=== PATIENT | female | born 1985 | race African-American/Black ===

== ENCOUNTER → 2016-07-21 | Outpatient (CLI) | payer MEDICARE, MEDICAID ==
[2016-07-21 18:24] LABS: ADD HIVPANEL? NO; HIV (1 AND 2) ANTIBODY NEGATIVE (NEGATIVE)
== END ==
LOC: OD 16:43
PROVIDERS: ATTEND Obstetrics & Gynecology
DX: Z34.83 Encounter for supervision of other normal pregnancy, third trimester (principal); Z11.59 Encounter for screening for other viral diseases; Z11.3 Encounter for screening for infections with a predominantly sexual mode of transmission; Z11.4 Encounter for screening for human immunodeficiency virus [HIV]
CPT/HCPCS: 36415; 86592; 86701

== ENCOUNTER 2016-07-23 20:22 | Outpatient (CLI) | payer MEDICARE, MEDICAID ==
[2016-07-23 21:43] VITALS: BP 124/75
[2016-07-23 23:04] LABS: APPEARANCE,URINE SLIGHTLY-CLOUDY; BILIRUBIN,URINE NEGATIVE (NEGATIVE); GLUCOSE, URINE 50 mg/dL (NEGATIVE); KETONES,URINE 80 mg/dL (NEGATIVE); LEUKOCYTE ESTERASE,URINE TRACE (NEGATIVE); NITRITE,URINE NEGATIVE (NEGATIVE); PROTEIN,URINE 100 mg/dL (NEGATIVE); URINE SPECIFIC GRAVITY 1.026; UROBILINOGEN,URINE NEGATIVE mg/dL (<2.0)
[2016-07-23] MEDS ORDERED: PROMETHAZINE HCL INJ 25 MG/1 ML VIAL IV ONE (23:05)
[2016-07-23] MEDS ORDERED: PROMETHAZINE HCL INJ 25 MG/1 ML VIAL ONE (23:10)
[2016-07-23 23:17] LABS: URINE BARBITURATES SCREEN NEGATIVE; URINE METHADONE SCREEN NEGATIVE; URINE OPIATES LOW NEGATIVE; URINE PHENCYCLIDINE SCREEN NEGATIVE
[2016-07-23] MEDS: RINGERS SOLUTION,LACTATED 1,000 ML IV PRN (23:51)
[2016-07-24] MEDS: RINGERS SOLUTION,LACTATED 1,000 ML IV PRN (01:09)
[2016-07-24] MEDS ORDERED: PROMETHAZINE HCL INJ 25 MG/1 ML VIAL IV PRN (01:26)
[2016-07-24] MEDS ORDERED: ONDANSETRON HCL INJ/PF 4 MG/2 ML SDV ONE (06:07)
[2016-07-24] MEDS ORDERED: ONDANSETRON HCL INJ/PF 4 MG/2 ML SDV IV ONE (06:08)
[2016-07-24 06:28] LABS: ALANINE AMINOTRANSFERASE 23 U/L (9-52); ALBUMIN 3.1 g/dL (3.5-5.0); ALKALINE PHOSPHATASE 87 U/L (38-126); ANION GAP 12 (5-19); ASPARTATE AMINO TRANSFERASE 20 U/L (14-36); BLOOD UREA NITROGEN 8 mg/dL (7-20); CALCIUM 8.9 mg/dL (8.4-10.2); CARBON DIOXIDE 19 mmol/L (22-30); CHLORIDE 105 mmol/L (98-107); CREATININE RESULT 0.43 mg/dL (0.52-1.25); GLUCOSE 134 mg/dL (75-110); POTASSIUM 3.4 mmol/L (3.6-5.0); SODIUM 136.3 mmol/L (137-145); TOTAL PROTEIN 6.4 g/dL (6.3-8.2)
--- NOTE | 2016-07-24 08:00 | L&D Flow Sheet ---
LD Flowsheet Datetime Report Generated by CPN: 07/24/2016 08:00 Datetime: 07/24/2016 07:42 Notification Reason: Status Update; Status; Labor Status; Uterine Activity; Lab/Diagnostic Study (Moses Gunter RN) Communication Comments: Pt states decrease in nausea, requests to go home after breakfast is delivered. Has been given prescription for nausea at home. Eating crackers and gingerale without difficulty. Dr Perry states to allow pt to eat breakfast, then discharge home as Dr Beach ordered. (Moses Gunter RN) Datetime: 07/24/2016 07:38 Comments: maternal hr (Moses Jani, RN) Datetime: 07/24/2016 07:35 Comments: intermittently picking up maternal hr d/t pt positioning (Moses Jani, RN) Datetime: 07/24/2016 07:34 I/O Interventions: Clear Liquids Given (Moses Jani, RN) Patient Care Comments: Crackers given (Moses Jani, RN) Datetime: 07/24/2016 07:30 Monitor Mode: External; Palpation (Moses Gunter RN) Frequency (min): none/ pt denies (Moses Gunter RN) Resting Tone (Palpate): Relaxed (Moses Gunter RN) Monitor Mode: External US (Moses Gunter RN) FHR Baseline Rate : 145 (Moses Gunter RN) Variability: Moderate 6-25 bpm (Moses Gunter, RN) Accelerations: 15X15 (Moses Gunter, RN) Decelerations: None (Moses Gunter RN) Level of Consciousness: Fully Conscious (Moses Gunter RN) DTR's/Clonus: DTRs 2+; No Clonus (Moses Gunter RN) Headache: Denies (Moses Gunter RN) Breath Sounds, Left: Clear and Equal (Moses Gunter RN) Breath Sounds, Right: Clear and Equal (Moses Gunter RN) Nausea/Vomiting: Denies (Moses Gunter RN) RUQ Epigastric Pain: Denies (Moses Gunter RN) Medication Comments: LR infusing 125ml/hr (Moses Gunter RN) Communication: RN at Bedside; RN Reviewed Strip (Moses Gunter RN) Datetime: 07/24/2016 07:25 I/O Interventions: Up to BR (Jodi Reid RN) Communication: RN at Bedside (Jodi Reid RN) Datetime: 07/24/2016 07:24 Communication: Report Given to @ S Jani RN (Jodi Ledgerwood, RN) Datetime: 07/24/2016 07:18 NBP Sys/Myranda/Mean (mmHg): 140 (QS system process) : 82 (QS system process) : 106 (QS system process) Pulse: 100 (QS system process) LaborFlag: Antepartum (QS system process) Datetime: 07/24/2016 07:11 Communication: Provider Orders Received (Jodi Clarkwood, RN) Communication Comments: Dr Beach on the floor. Order received for regular diet. D/C order received after pt has breakfast and reactive strip. (Jodi Reid, RN) Datetime: 07/24/2016 07:04 Communication: Provider at Bedside (Jodi Reid, RN) Communication Comments: Dr Beach at bedside (Jodi Reid, RN) Datetime: 07/24/2016 07:00 Monitor Mode: External; Palpation (Jodi Reid, RN) Frequency (min): none (Jodi Reid, RN) Resting Tone (Palpate): Relaxed (Joid Ledgerdafne, RN) Monitor Mode: External US (Jodi Ledgerdafne, RN) FHR Baseline Rate : 145 (Jodi Hollandgerdafne, RN) FHR Baseline Changes: No Baseline Change (Jdoi Reid, RN) Variability: Moderate 6-25 bpm (Jodi Ledgerwood, RN) Accelerations: 10X10 (Jodi Ledgerwood, RN) Decelerations: None (Jodi oHllandgerdafne, RN) Datetime: 07/24/2016 06:48 NBP Sys/Myranda/Mean (mmHg): 129 (QS system process) : 70 (QS system process) : 93 (QS system process) Pulse: 106 (QS system process) Respirations: 15 (Jodi Ledgerwood, RN) LaborFlag: Antepartum (QS system process) Datetime: 07/24/2016 06:30 Monitor Mode: External; Palpation (Jodi Ledgerwood, RN) Frequency (min): none (Jodi Ledgerwood, RN) Resting Tone (Palpate): Relaxed (Jodi Ledgerwood, RN) Monitor Mode: External US (Jodi Ledgerwood, RN) FHR Baseline Rate : 145 (Jodi Ledgerwood, RN) FHR Baseline Changes: No Baseline Change (Jodi Ledgerwood, RN) Variability: Moderate 6-25 bpm (Jodi Ledgerwood, RN) Accelerations: 15X15 (Jodi Ledgerwood, RN) Decelerations: None (Jodi Ledgerwood, RN) Datetime: 07/24/2016 06:19 Patient Care Comments: pt is sleeping (Jodi Ledgerwood, RN) Datetime: 07/24/2016 06:18 NBP Sys/Myranda/Mean (mmHg): 129 (QS system process) : 60 (QS system process) : 86 (QS system process) Pulse: 103 (QS system process) LaborFlag: Antepartum (QS system process) Datetime: 07/24/2016 06:16 Antiemetics/Antacids: Zofran IV (mg) @ 4 (Jodi Ledgerwood, RN) Datetime: 07/24/2016 06:03 Communication Comments: Dr. Beach informed of pt vomiting again and c/o feeling some nausea afterwards. Orders received. (Isaura Vazquez, RN) Datetime: 07/24/2016 06:00 Monitor Mode: External; Palpation (Jodi Ledgerwood, RN) Frequency (min): none (Jodi Ledgerwood, RN) Resting Tone (Palpate): Relaxed (Jodi Ledgerwood, RN) Monitor Mode: External US (Jodi Ledgerwood, RN) FHR Baseline Rate : 145 (Jodi Ledgerwood, RN) FHR Baseline Changes: No Baseline Change (Jodi Ledgerwood, RN) Variability: Moderate 6-25 bpm (Jodi Ledgerwood, RN) Accelerations: 10X10 (Jodi Ledgerwood, RN) Decelerations: None (Jodi Ledgerwood, RN) Datetime: 07/24/2016 05:52 Procedures: Labs Drawn (Jodi Reid, RN) Datetime: 07/24/2016 05:48 NBP Sys/Myranda/Mean (mmHg): 132 (QS system process) : 68 (QS system process) : 94 (QS system process) Pulse: 102 (QS system process) Respirations: 15 (Jodi Reid, RN) Temperature (F): 98.9 (Jodi Reid, JESSICA) Temperature (C): 37.2 (QS system process) Temperature Route: Oral (Jodi Reid, JESSICA) Pain Scale: 0 (Jodi Reid, JESSICA) LaborFlag: Antepartum (QS system process) Datetime: 07/24/2016 01:11 Patient Care Comments: monitors off per Dr Bernal (Jodi Ledgerwood, RN) Datetime: 07/24/2016 01:10 Monitor Mode: External; Palpation (Jodi Ledgerwood, RN) Frequency (min): none (Jodi Ledgerwood, RN) Resting Tone (Palpate): Relaxed (Jodi Ledgerwood, RN) Monitor Mode: External US (Jodi Ledgerwood, RN) FHR Baseline Rate : 145 (Jodi Ledgerwood, RN) FHR Baseline Changes: No Baseline Change (Jodi Ledgerwood, RN) Variability: Moderate 6-25 bpm (Jodi Ledgerwood, RN) Accelerations: 15X15 (Jodi Ledgerwood, RN) Decelerations: None (Jodi Ledgerwood, RN) Datetime: 07/24/2016 01:02 Communication: Provider Orders Received (Jodi eRid RN) Communication Comments: Orders received to keep pt as observation , LR at 125 ml/h, monitors off for 4 hours, to check blood glucose level in AM, CMP labs in AM, Phenergan 25 mg q 6 h PRN, NST in AM, liquid diet as tolerated. (Jodi Ledgerwood, RN) Datetime: 07/24/2016 01:00 Communication: Provider at Bedside (Jodi Ledgerwood, RN) Communication Comments: Dr Beach asked if pt wants to go home or stay at [facility] till AM. Pt rerquested to stay here. (Jodi Ledgerwood, RN) Datetime: 07/24/2016 00:59 Communication: Provider at Bedside (Jodi Ledgerwood, RN) Communication Comments: Dr Beach at bedside (Jodi Ledgerwood, RN) Datetime: 07/24/2016 00:48 Patient Care Comments: pt. vomited. (Jodi Ledgerwood, RN) Datetime: 07/24/2016 00:40 Monitor Mode: External; Palpation (Jodi Ledgerwood, RN) Frequency (min): none (Jodi Ledgerwood, RN) Resting Tone (Palpate): Relaxed (Jodi Ledgerwood, RN) Monitor Mode: External US (Jodi Ledgerwood, RN) FHR Baseline Rate : 145 (Jodi Ledgerwood, RN) FHR Baseline Changes: No Baseline Change (Jodi Ledgerwood, RN) Variability: Moderate 6-25 bpm (Jodi Ledgerwood, RN) Accelerations: 15X15 (Jodi Ledgerwood, RN) Decelerations: None (Jodi Ledgerwood, RN) Datetime: 07/24/2016 00:37 NBP Sys/Myranda/Mean (mmHg): 146 (QS system process) : 73 (QS system process) : 100 (QS system process) Pulse: 109 (QS system process) Respirations: 16 (Jodi Ledgerwood, RN) LaborFlag: Antepartum (QS system process) Datetime: 07/24/2016 00:32 NBP Sys/Myranda/Mean (mmHg): 149 (QS system process) : 79 (QS system process) : 101 (QS system process) Pulse: 114 (QS system process) LaborFlag: Antepartum (QS system process) Datetime: 07/24/2016 00:15 Communication: Provider Orders Received; Call/Page Placed to Provider (Jodi Reid RN) Communication Comments: Dr Beach notified of pt's status. D/C order received. (Jodi Reid, RN) Datetime: 07/24/2016 00:10 Monitor Mode: External; Palpation (Jodi Ledgerwood, RN) Frequency (min): none (Jodi Ledgerwood, RN) Resting Tone (Palpate): Relaxed (Jodi Ledgerwood, RN) Monitor Mode: External US (Jodi Ledgerwood, RN) FHR Baseline Rate : 150 (Jodi Ledgerwood, RN) FHR Baseline Changes: No Baseline Change (Jodi Ledgerwood, RN) Variability: Moderate 6-25 bpm (Jodi Ledgerwood, RN) Accelerations: 15X15 (Jodi Ledgerwood, RN) Decelerations: None (Jodi Ledgerwood, RN) Datetime: 07/24/2016 00:08 I/O Interventions: Up to BR (Jodi Ledgerwood, RN) Communication: RN at Bedside (Jodi Ledgerwood, RN) Datetime: 07/24/2016 00:01 NBP Sys/Myranda/Mean (mmHg): 135 (QS system process) : 76 (QS system process) : 98 (QS system process) Pulse: 110 (QS system process) LaborFlag: Antepartum (QS system process) Datetime: 07/23/2016 23:56 Patient Care Comments: pt is sleeping (Jodi Ledgerwood, RN) Communication: RN at Bedside (Jodi Ledgerwood, RN) Datetime: 07/23/2016 23:55 IV/Blood Work: New IV Bag Hung (Jodi Ledgerwood, RN) Datetime: 07/23/2016 23:40 Monitor Mode: External; Palpation (Jodi Ledgerwood, RN) Frequency (min): none (Jodi Ledgerwood, RN) Resting Tone (Palpate): Relaxed (Jodi Ledgerwood, RN) Monitor Mode: External US (Jodi Ledgerwood, RN) FHR Baseline Rate : 135 (Jodi Ledgerwood, RN) FHR Baseline Changes: No Baseline Change (Jodi Ledgerwood, RN) Variability: Moderate 6-25 bpm (Jodi Ledgerwood, RN) Accelerations: 15X15 (Jodi Ledgerwood, RN) Decelerations: None (Jodi Ledgerwood, RN) Datetime: 07/23/2016 23:31 NBP Sys/Myranda/Mean (mmHg): 138 (QS system process) : 72 (QS system process) : 98 (QS system process) Pulse: 109 (QS system process) LaborFlag: Antepartum (QS system process) Datetime: 07/23/2016 23:20 IV/Blood Work: IV Started; IV Bolus Started; New IV Bag Hung (Jodi Ledgerwood, RN) Datetime: 07/23/2016 23:10 Monitor Mode: External; Palpation (Jodi Ledgerwood, RN) Frequency (min): none (Jodi Ledgerwood, RN) Resting Tone (Palpate): Relaxed (Jodi Ledgerwood, RN) Monitor Mode: External US (Jodi Ledgerwood, RN) FHR Baseline Rate : 135 (Jodi Ledgerwood, RN) FHR Baseline Changes: No Baseline Change (Jodi Ledgerwood, RN) Variability: Moderate 6-25 bpm (Jodi Ledgerwood, RN) Accelerations: 15X15 (Jodi Ledgerwood, RN) Decelerations: None (Jodi Ledgerwood, RN) Analgesics/Sedatives: Phenergan (mg) @ 25 (Jodi Ledgerwood, RN) Datetime: 07/23/2016 23:04 Patient Care Comments: pt. vomited. (Jodi Ledgerwood, RN) Datetime: 07/23/2016 23:02 Communication: Provider Orders Received (Jodi Reid RN) Communication Comments: Orders received from Dr Beach to start an IV, fluids 1000 ml of LR and 25 mg of phenergan for nausea. (Jodi Reid, JESSICA) Datetime: 07/23/2016 23:01 NBP Sys/Myranda/Mean (mmHg): 141 (QS system process) : 83 (QS system process) : 105 (QS system process) Pulse: 108 (QS system process) LaborFlag: Antepartum (QS system process) Datetime: 07/23/2016 23:00 Patient Care Comments: Blood Glucose level checked-152. Dr Beach at bedside (Jodi Reid RN) Datetime: 07/23/2016 22:59 Bedside Blood Glucose: 152 H (Annotations: Dr Beach aware of the blood glucose level, no orders received.) (Jodi Reid RN) Communication: Provider at Bedside (Jodi Reid RN) Communication Comments: Dr Beach at bedside. (Jodi Reid RN) LaborFlag: Antepartum (QS system process) Datetime: 07/23/2016 22:40 Monitor Mode: External; Palpation (Jodi Reid RN) Frequency (min): none (Jodi Reid RN) Resting Tone (Palpate): Relaxed (Jodi Reid RN) Contraction Comments: no contractions noted during palpation, pt reports no feeling of contractions. (Jodi Reid RN) Monitor Mode: External US (Jodi Reid RN) FHR Baseline Rate : 130 (Jodi Reid RN) FHR Baseline Changes: No Baseline Change (Jodi Reid RN) Variability: Moderate 6-25 bpm (Jodi Reid RN) Accelerations: 15X15 (Jodi Ledgerwood, RN) Decelerations: None (Jodi Ledgerwood, RN) Datetime: 07/23/2016 22:32 Patient Care Comments: pt reports that she is not taking any vitamins. (Jodi Ledgerwood, RN) Datetime: 07/23/2016 22:31 NBP Sys/Myranda/Mean (mmHg): 136 (QS system process) : 71 (QS system process) : 96 (QS system process) Pulse: 102 (QS system process) Respirations: 15 (Jodi Ledgerwood, RN) LaborFlag: Antepartum (QS system process) Datetime: 07/23/2016 22:20 Pain Scale: 5 (Jodi Reid RN) Pain Presence: Intermittent (Jodi Reid RN) Pain Type: Pressure (Jodi Reid RN) Pain Location: Abdomen (Jodi Reid RN) Pain Relief Measures: Comfort Measures (Jodi Reid RN) Pain Coping: pt laying in bed with eyes closed, no distress noticed. (Jodi Reid RN) Level of Consciousness: Fully Conscious (Jodi Reid RN) DTR's/Clonus: DTRs 2+; No Clonus (Jodi Reid RN) Headache: Denies (Jodi Reid RN) Breath Sounds, Left: Clear and Equal (Jodi Reid RN) Breath Sounds, Right: Clear and Equal (Jodi Reid RN) Nausea/Vomiting: Present (Jodi Reid RN) RUQ Epigastric Pain: Denies (Jodi Reid RN) Instructional Method: Demo; Verbal; Patient Instructed (Jodi Reid RN) Plan of Care: Plan of Care Discussed (Jodi Reid RN) Unit Routine: [place] to Room; Call Denson; Bed; Security; Handwashing; Flu/Illness Precautions; Monitoring; Safety/Fall Risk Prevention; Bathroom Privileges (Jodi Reid RN) LaborFlag: Antepartum (QS system process) Datetime: 07/23/2016 22:13 Patient Care Comments: pt was not able to urinate, pt. was advised to drink fluids.Water cup placed next to the pt. (Jodi Reid RN) Datetime: 07/23/2016 22:05 Stage of : Antepartum (Jodi Reid RN)
--- NOTE | 2016-07-24 08:56 | Non Stress Test Report ---
Non Stress Test Datetime Report Generated by CPN: 07/24/2016 08:56 DEMOGRAPHIC EGA NST: 33.1 EGA NST: 33.1 INDICATION Indication for Study: Ordered by Provider Indication for Study: Ordered by Provider VITAL SIGNS Temperature - NST: 98.9 Pulse - NST: 106 RESP - NST: 15 NBPSYS NST: 129 NBPDIA NST: 70 MONITORING Monitor Explained: Monitor Explained; Test Explained; Patient Verbalized Understanding Monitor Explained: Monitor Explained; Test Explained; Patient Verbalized Understanding Time on Monitor: 07/24/2016 07:24 Time on Monitor: 07/24/2016 05:30 Time off Monitor: 07/24/2016 08:04 Time off Monitor: 07/24/2016 06:57 NST Duration: 40 NST Duration: 87 NST INTERVENTIONS NST Interventions: IV Fluids; Meal Given NST Interventions: IV Fluids Physician Notified NST: Dr Perry Physician Notified NST: Beach BABY A: [id number] BABY A Movement : Present Movement : Present Contraction Frequency : none Contraction Frequency : none FHR Baseline : 145 FHR Baseline : 145 Accelerations : 15X15 Accelerations : 15X15 Decelerations : None Decelerations : None Variability : Moderate 6-25bpm Variability : Moderate 6-25bpm NST Review: Meets Criteria for Reactive NST NST Review and Verified By : Shani Mullins [facility] NST Results: Reactive NST Results: Reactive NST REPORT Report Trigger: Send Report
--- NOTE | 2016-07-24 10:46 | L&D Current Admission ---
Current Admit Datetime Report Generated by CPN: 07/24/2016 10:45 ADMISSION INFORMATION Current Admit Date/Time: 07/24/2016 05:42 (07/24/2016 05:42:Jodi Reid RN) Reason for Admission: Other (07/24/2016 05:42:Jodi Reid RN) Other Reason for Admission: observation pt. for vomiting (07/24/2016 05:42:Jodi Reid RN) Chief Complaint: Vomiting (07/23/2016 22:20:Jodi Reid RN) Chief Complaint: Other (05/13/2016 12:30:MITCH Luz) EGA per Dates: 33.1 (07/24/2016 05:42:QS system process) Method of Arrival: Wheelchair (07/24/2016 05:42:Jodi Reid RN) Admitted From: Home (07/24/2016 05:42:Jodi Reid RN) Reason for Induction: Not Applicable (07/24/2016 05:42:Jodi Reid RN) Records Available: Yes (07/24/2016 05:42:Jodi Reid RN) General Admission Information: Reviewed (07/24/2016 05:42:Jodi Reid RN) LEARNING ASSESSMENT Knowledge Level: Understands L_D Process; Understands Care Activities; Understands Diagnosis (07/24/2016 05:42:Jodi Reid RN) Barriers to Learning: None (07/24/2016 05:42:Jodi Reid RN) Learning Readiness: Motivated (07/24/2016 05:42:Jodi Reid RN) Learns Best By: 1 to 1 Instruction (07/24/2016 05:42:Jodi Reid RN) Learning Needs: Labor and Delivery Process; Pain Management; Symptoms to Report; Treatment Plan; Medication; Diagnosis; Nutrition; Equipment; Care; Community Resources (07/24/2016 05:42:Jodi Reid RN) DOMESTIC VIOLANCE SCREENING Dom Viol Threatened/Hurt: No (07/24/2016 05:42:Jodi Reid RN) Hx of Abuse/Neglect past 2yrs: No (07/24/2016 05:42:Jodi Reid RN) Feel Unsafe Going Home: No (07/24/2016 05:42:Jodi Reid RN) Addt'l Observ Indicating Abuse: No (07/24/2016 05:42:Jodi Reid RN) Reason Unable to Complete Screen: N/A, Screen Completed (07/24/2016 05:42:Jodi Reid RN) Considered Personal Harm/Suicide: No (07/24/2016 05:42:Jodi Reid RN) NUTRITIONAL/FUNCTIONAL SCREENING Problem with Appetite >5 Days: No (07/24/2016 05:42:Jodi Reid RN) Chew/Swallow Difficulties: No (07/24/2016 05:42:Jodi Reid RN) Inappropriate Wt Gain/Loss: No (07/24/2016 05:42:Jodi Reid RN) Presence Skin Breakdown/Ulcer: No (07/24/2016 05:42:Jodi Reid RN) Special Diet: Yes (07/24/2016 05:42:Jodi Reid RN) Specify Diet: liquid diet-vomiting (07/24/2016 05:42:Jodi Reid RN) Pt Requests Eeg Tech Visit: No (07/24/2016 05:42:Jodi Reid RN) Hx of Any of the Following?: N/A (07/24/2016 05:42:Jodi Reid RN) New Diagnosis of: N/A (07/24/2016 05:42:Jodi Reid RN) Requires Assist w/Ambulation: No (07/24/2016 05:42:Jodi Reid RN) Uses Assist Device to Ambulate: No (07/24/2016 05:42:Jodi Reid RN) Pt Requires Help w/ADL's: No (07/24/2016 05:42:Jodi Reid RN)
--- NOTE | 2016-07-24 10:46 | L&D Flow Sheet ---
LD Flowsheet Datetime Report Generated by CPN: 07/24/2016 10:45 Datetime: 07/24/2016 08:50 Communication Comments: Pt discharged via wheelchair accompainied by to drive pt home. No distress noted, no complaints. (Moses Jani, RN) Datetime: 07/24/2016 08:19 Communication: Pt awaiting to drive patient home (Moses Jani, RN) Datetime: 07/24/2016 08:04 Respirations: 20 (Moses Jani, RN) Monitor Mode: External; Palpation (Moses Jani, RN) Frequency (min): none/ pt denies (Moses Jani, RN) Resting Tone (Palpate): Relaxed (Moses Jani, RN) Monitor Mode: External US (Moses Jani, RN) FHR Baseline Rate : 145 (Moses Jani, RN) Variability: Moderate 6-25 bpm (Moses Jani, RN) Accelerations: 15X15 (Moses Jani, RN) Decelerations: None (Moses Jani, RN) Level of Consciousness: Fully Conscious (Moses Jani, RN) Headache: Denies (Moses Jani, RN) Breath Sounds, Left: Clear and Equal (Moses Jani, RN) Breath Sounds, Right: Clear and Equal (Moses Jani, RN) Nausea/Vomiting: Hx of Nausea/Vomiting (Moses Jani, RN) RUQ Epigastric Pain: Denies (Moses Jani, RN) Medication Comments: Pt passed PO challenge (Moses Jani, RN) LaborFlag: Antepartum (QS system process) Datetime: 07/24/2016 08:03 Temperature (F): 98.7 (Moses Gunter RN) Temperature (C): 37.1 (QS system process) IV/Blood Work: IV Saline Locked (Moses Gunter RN) Patient Care Comments: IV discontinued; Site WNL. (Moses Gunter RN) Teaching Comments: GDM, N/V/D, Dehydration (Moses Gunter RN) Communication Comments: Pt given note for work and court (Moses Gunter RN) LaborFlag: Antepartum (QS system process) Datetime: 07/24/2016 08:02 Patient Care Comments: Pt given meal tray (Moses Gunter RN) Communication Comments: Dr Perry reviewed strip, assessed pt, orders to discharge. (Moses Gunter RN) Datetime: 07/24/2016 07:42 Notification Reason: Status Update; Status; Labor Status; Uterine Activity; Lab/Diagnostic Study (Moses JaniJESSICA gray) Communication Comments: Pt states decrease in nausea, requests to go home after breakfast is delivered. Has been given prescription for nausea at home. Eating crackers and gingerale without difficulty. Dr Perry states to allow pt to eat breakfast, then discharge home as Dr Beach ordered. (Moses Gunter, RN) Datetime: 07/24/2016 07:38 Comments: maternal hr (Moses Gunter, RN) Datetime: 07/24/2016 07:35 Comments: intermittently picking up maternal hr d/t pt positioning (Moses Gunter, RN) Datetime: 07/24/2016 07:34 I/O Interventions: Clear Liquids Given (Moses Gunter RN) Patient Care Comments: Crackers given (Moses Gunter RN) Datetime: 07/24/2016 07:30 Monitor Mode: External; Palpation (Moses Gunter RN) Frequency (min): none/ pt denies (Moses Gunter RN) Resting Tone (Palpate): Relaxed (Moses Gunter RN) Monitor Mode: External US (Moses Gunter RN) FHR Baseline Rate : 145 (Moses Gunter RN) Variability: Moderate 6-25 bpm (Moses Gunter RN) Accelerations: 15X15 (Moses Gunter RN) Decelerations: None (Moses Gunter RN) Level of Consciousness: Fully Conscious (Moses Gunter RN) DTR's/Clonus: DTRs 2+; No Clonus (Moses Gunter RN) Headache: Denies (Moses Gunter RN) Breath Sounds, Left: Clear and Equal (Moses Gunter RN) Breath Sounds, Right: Clear and Equal (Moses Gunter RN) Nausea/Vomiting: Denies (Moses Gunter RN) RUQ Epigastric Pain: Denies (Moses Gunter RN) Medication Comments: LR infusing 125ml/hr (Moses Jani, RN) Communication: RN at Bedside; RN Reviewed Strip (Moses Jani, RN) Datetime: 07/24/2016 07:25 I/O Interventions: Up to BR (Jodi Ledgerwood, RN) Communication: RN at Bedside (Jodi Ledgerwood, RN) Datetime: 07/24/2016 07:24 Communication: Report Given to @ S Jani RN (Jodi Ledgerwood, RN) Datetime: 07/24/2016 07:18 NBP Sys/Myranda/Mean (mmHg): 140 (QS system process) : 82 (QS system process) : 106 (QS system process) Pulse: 100 (QS system process) LaborFlag: Antepartum (QS system process) Datetime: 07/24/2016 07:11 Communication: Provider Orders Received (Jodi Reid RN) Communication Comments: Dr Beach on the floor. Order received for regular diet. D/C order received after pt has breakfast and reactive strip. (Jodi Reid, JESSICA) Datetime: 07/24/2016 07:04 Communication: Provider at Bedside (Jodi Reid RN) Communication Comments: Dr Beach at bedside (Jodi Reid, JESSICA) Datetime: 07/24/2016 07:00 Monitor Mode: External; Palpation (Jodi Ledgerwood, RN) Frequency (min): none (Jodi Ledgerwood, RN) Resting Tone (Palpate): Relaxed (Jodi Ledgerwood, RN) Monitor Mode: External US (Jodi Ledgerwood, RN) FHR Baseline Rate : 145 (Jodi Ledgerwood, RN) FHR Baseline Changes: No Baseline Change (Jodi Ledgerwood, RN) Variability: Moderate 6-25 bpm (Jodi Ledgerwood, RN) Accelerations: 10X10 (Jodi Ledgerwood, RN) Decelerations: None (Jodi Ledgerwood, RN) Datetime: 07/24/2016 06:48 NBP Sys/Myranda/Mean (mmHg): 129 (QS system process) : 70 (QS system process) : 93 (QS system process) Pulse: 106 (QS system process) Respirations: 15 (Jodi Ledgerwood, RN) LaborFlag: Antepartum (QS system process) Datetime: 07/24/2016 06:30 Monitor Mode: External; Palpation (Jodi Ledgerwood, RN) Frequency (min): none (Jodi Ledgerwood, RN) Resting Tone (Palpate): Relaxed (Joid Ledgerwood, RN) Monitor Mode: External US (Jodi Ledgerwood, RN) FHR Baseline Rate : 145 (Jodi Ledgerwood, RN) FHR Baseline Changes: No Baseline Change (Jodi Ledgerwood, RN) Variability: Moderate 6-25 bpm (Jodi Ledgerwood, RN) Accelerations: 15X15 (Jodi Ledgerwood, RN) Decelerations: None (Jodi Ledgerwood, RN) Datetime: 07/24/2016 06:19 Patient Care Comments: pt is sleeping (Jodi Ledgerwood, RN) Datetime: 07/24/2016 06:18 NBP Sys/Myranda/Mean (mmHg): 129 (QS system process) : 60 (QS system process) : 86 (QS system process) Pulse: 103 (QS system process) LaborFlag: Antepartum (QS system process) Datetime: 07/24/2016 06:16 Antiemetics/Antacids: Zofran IV (mg) @ 4 (Jodi Ledgerwood, RN) Datetime: 07/24/2016 06:03 Communication Comments: Dr. Yong informed of pt vomiting again and c/o feeling some nausea afterwards. Orders received. (Isaura Vazquez, RN) Datetime: 07/24/2016 06:00 Monitor Mode: External; Palpation (Jodi Ledgerwood, RN) Frequency (min): none (Jodi Ledgerwood, RN) Resting Tone (Palpate): Relaxed (Jodi Ledgerwood, RN) Monitor Mode: External US (Jodi Ledgerwood, RN) FHR Baseline Rate : 145 (Jodi Ledgerwood, RN) FHR Baseline Changes: No Baseline Change (Jodi Ledgerwood, RN) Variability: Moderate 6-25 bpm (Jodi Ledgerwood, RN) Accelerations: 10X10 (Jodi Ledgerwood, RN) Decelerations: None (Jodi Ledgerwood, RN) Datetime: 07/24/2016 05:52 Procedures: Labs Drawn (Jodi Ledgerwood, RN) Datetime: 07/24/2016 05:48 NBP Sys/Myranda/Mean (mmHg): 132 (QS system process) : 68 (QS system process) : 94 (QS system process) Pulse: 102 (QS system process) Respirations: 15 (Jodi Ledgerwood, RN) Temperature (F): 98.9 (Jodi Ledgerwood, RN) Temperature (C): 37.2 (QS system process) Temperature Route: Oral (Jodi Reid, RN) Pain Scale: 0 (Jodi Reid RN) LaborFlag: Antepartum (QS system process) Datetime: 07/24/2016 01:11 Patient Care Comments: monitors off per Dr Beach. (Jodi Reid, RN) Datetime: 07/24/2016 01:10 Monitor Mode: External; Palpation (Jodi Reid, RN) Frequency (min): none (Jodi Reid, RN) Resting Tone (Palpate): Relaxed (Jodi Reid, RN) Monitor Mode: External US (Jodi Reid, RN) FHR Baseline Rate : 145 (Jodi Reid, RN) FHR Baseline Changes: No Baseline Change (Jodi Reid, RN) Variability: Moderate 6-25 bpm (Jodi Ledgerdafne, RN) Accelerations: 15X15 (Jodi Hollandgerdafne, RN) Decelerations: None (Jodi Reid, RN) Datetime: 07/24/2016 01:02 Communication: Provider Orders Received (Jodi Reid RN) Communication Comments: Orders received to keep pt as observation , LR at 125 ml/h, monitors off for 4 hours, to check blood glucose level in AM, CMP labs in AM, Phenergan 25 mg q 6 h PRN, NST in AM, liquid diet as tolerated. (Jodi Reid RN) Datetime: 07/24/2016 01:00 Communication: Provider at Bedside (Jodi Reid RN) Communication Comments: Dr Beach asked if pt wants to go home or stay at [facility] till AM. Pt rerquested to stay here. (Jodi Reid, JESSICA) Datetime: 07/24/2016 00:59 Communication: Provider at Bedside (Jodi Reid, RN) Communication Comments: Dr Beach at bedside (Jodi Ledgerwood, RN) Datetime: 07/24/2016 00:48 Patient Care Comments: pt. vomited. (Jodi Ledgerwood, RN) Datetime: 07/24/2016 00:40 Monitor Mode: External; Palpation (Jodi Ledgerwood, RN) Frequency (min): none (Jodi Ledgerwood, RN) Resting Tone (Palpate): Relaxed (Jodi Ledgerwood, RN) Monitor Mode: External US (Jodi Ledgerwood, RN) FHR Baseline Rate : 145 (Jodi Ledgerwood, RN) FHR Baseline Changes: No Baseline Change (Jodi Ledgerwood, RN) Variability: Moderate 6-25 bpm (Jodi Ledgerwood, RN) Accelerations: 15X15 (Jodi Ledgerwood, RN) Decelerations: None (Jodi Ledgerwood, RN) Datetime: 07/24/2016 00:37 NBP Sys/Myranda/Mean (mmHg): 146 (QS system process) : 73 (QS system process) : 100 (QS system process) Pulse: 109 (QS system process) Respirations: 16 (Jodirossana Clarkwood, RN) LaborFlag: Antepartum (QS system process) Datetime: 07/24/2016 00:32 NBP Sys/Myranda/Mean (mmHg): 149 (QS system process) : 79 (QS system process) : 101 (QS system process) Pulse: 114 (QS system process) LaborFlag: Antepartum (QS system process) Datetime: 07/24/2016 00:15 Communication: Provider Orders Received; Call/Page Placed to Provider (Jodi Ledgerwood, RN) Communication Comments: Dr Beach notified of pt's status. D/C order received. (Jodi Ledgerwood, RN) Datetime: 07/24/2016 00:10 Monitor Mode: External; Palpation (Jodi Ledgerwood, RN) Frequency (min): none (Jodi Ledgerwood, RN) Resting Tone (Palpate): Relaxed (Jodi Ledgerwood, RN) Monitor Mode: External US (Jodi Ledgerwood, RN) FHR Baseline Rate : 150 (Jodi Ledgerwood, RN) FHR Baseline Changes: No Baseline Change (Jodi Ledgerwood, RN) Variability: Moderate 6-25 bpm (Jodi Ledgerwood, RN) Accelerations: 15X15 (Jodi Ledgerwood, RN) Decelerations: None (Jodi Ledgerwood, RN) Datetime: 07/24/2016 00:08 I/O Interventions: Up to BR (Jodi Ledgerwood, RN) Communication: RN at Bedside (Jodi Ledgerwood, RN) Datetime: 07/24/2016 00:01 NBP Sys/Myranda/Mean (mmHg): 135 (QS system process) : 76 (QS system process) : 98 (QS system process) Pulse: 110 (QS system process) LaborFlag: Antepartum (QS system process) Datetime: 07/23/2016 23:56 Patient Care Comments: pt is sleeping (Jodi Ledgerwood, RN) Communication: RN at Bedside (Jodi Ledgerwood, RN) Datetime: 07/23/2016 23:55 IV/Blood Work: New IV Bag Hung (Jodi Ledgerwood, RN) Datetime: 07/23/2016 23:40 Monitor Mode: External; Palpation (Jodi Ledgerwood, RN) Frequency (min): none (Jodi Ledgerwood, RN) Resting Tone (Palpate): Relaxed (Jodi Ledgerwood, RN) Monitor Mode: External US (Jodi Ledgerwood, RN) FHR Baseline Rate : 135 (Jodi Ledgerwood, RN) FHR Baseline Changes: No Baseline Change (Jodi Ledgerwood, RN) Variability: Moderate 6-25 bpm (Jodi Ledgerwood, RN) Accelerations: 15X15 (Jodi Ledgerwood, RN) Decelerations: None (Jodi Ledgerwood, RN) Datetime: 07/23/2016 23:31 NBP Sys/Myranda/Mean (mmHg): 138 (QS system process) : 72 (QS system process) : 98 (QS system process) Pulse: 109 (QS system process) LaborFlag: Antepartum (QS system process) Datetime: 07/23/2016 23:20 IV/Blood Work: IV Started; IV Bolus Started; New IV Bag Hung (Jodi Reid, RN) Datetime: 07/23/2016 23:10 Monitor Mode: External; Palpation (Jodi Reid, RN) Frequency (min): none (Jodi Reid, RN) Resting Tone (Palpate): Relaxed (Jodi Reid, RN) Monitor Mode: External US (Jodi Reid, RN) FHR Baseline Rate : 135 (Jodi Reid, RN) FHR Baseline Changes: No Baseline Change (Jodi Reid, RN) Variability: Moderate 6-25 bpm (Jodi Reid, RN) Accelerations: 15X15 (Jodi Reid, RN) Decelerations: None (Jodi Reid, RN) Analgesics/Sedatives: Phenergan (mg) @ 25 (Jodi Ledgerwood, RN) Datetime: 07/23/2016 23:04 Patient Care Comments: pt. vomited. (Jodi Ledgerwood, RN) Datetime: 07/23/2016 23:02 Communication: Provider Orders Received (Jodi Ledgerwood, RN) Communication Comments: Orders received from Dr Beach to start an IV, fluids 1000 ml of LR and 25 mg of phenergan for nausea. (Jodi Ledgerwood, RN) Datetime: 07/23/2016 23:01 NBP Sys/Myranda/Mean (mmHg): 141 (QS system process) : 83 (QS system process) : 105 (QS system process) Pulse: 108 (QS system process) LaborFlag: Antepartum (QS system process) Datetime: 07/23/2016 23:00 Patient Care Comments: Blood Glucose level checked-152. Dr Beach at bedside (Jodi Reid RN) Datetime: 07/23/2016 22:59 Bedside Blood Glucose: 152 H (Annotations: Dr Beach aware of the blood glucose level, no orders received.) (Jodi Reid RN) Communication: Provider at Bedside (Jodi Reid RN) Communication Comments: Dr Beach at bedside. (Jodi Reid RN) LaborFlag: Antepartum (QS system process)
--- NOTE | 2016-07-24 10:46 | L&D Admission Assessment ---
LD ADM ASMT Datetime Report Generated by CPN: 07/24/2016 10:45 Assessment Type: Ongoing Assessment (07/24/2016 07:30:Moses Gunter RN) Assessment Type: Triage (07/23/2016 22:20:Jodi Reid RN) Weight (lb): 169 (07/23/2016 22:37:QS system process) Weight (kg): 76.8 (07/23/2016 22:37:QS system process) Total Wt Gain (lb): 4 (07/23/2016 22:37:QS system process) Wt Gain (kg): 2.0 (07/23/2016 22:37:QS system process) BMI: 29.0 (07/23/2016 22:37:QS system process) Pain Scale: 0 (07/24/2016 05:48:Jodi Reid RN) Pain Scale: 5 (07/23/2016 22:20:Jodi Reid RN) Pain Presence: Intermittent (07/23/2016 22:20:Jodi Reid RN) Pain Type: Pressure (07/23/2016 22:20:Jodi Reid RN) Pain Location: Abdomen (07/23/2016 22:20:Jodi Reid RN) Frequency (min): none/ pt denies (07/24/2016 08:04:Moses Gunter RN) Frequency (min): none/ pt denies (07/24/2016 07:30:Moses Gunter RN) Frequency (min): none (07/24/2016 07:00:Jodi Reid RN) Frequency (min): none (07/24/2016 06:30:Jodi Ledgerwood, RN) Frequency (min): none (07/24/2016 06:00:Jodi Ledgerwood, RN) Frequency (min): none (07/24/2016 01:10:Jodi Ledgerwood, RN) Frequency (min): none (07/24/2016 00:40:Jodi Ledgerwood, RN) Frequency (min): none (07/24/2016 00:10:Jodi Ledgerwood, RN) Frequency (min): none (07/23/2016 23:40:Jodi Ledgerwood, RN) Frequency (min): none (07/23/2016 23:10:Jodi Ledgerwood, RN) Frequency (min): none (07/23/2016 22:40:Jodi Ledgerwood, RN) Resting Tone [place]: Relaxed (07/24/2016 08:04:Moses Gunter RN) Resting Tone [place]: Relaxed (07/24/2016 07:30:Moses Gunter RN) Resting Tone [place]: Relaxed (07/24/2016 07:00:Jodi Ledgerwood, RN) Resting Tone [place]: Relaxed (07/24/2016 06:30:Jodi Ledgerwood, RN) Resting Tone [place]: Relaxed (07/24/2016 06:00:Jodi Ledgerwood, RN) Resting Tone [place]: Relaxed (07/24/2016 01:10:Jodi Jeanette, RN) Resting Tone [place]: Relaxed (07/24/2016 00:40:Jodi Jeanette, RN) Resting Tone [place]: Relaxed (07/24/2016 00:10:Jodi Ledgerwood, RN) Resting Tone [place]: Relaxed (07/23/2016 23:40:Jodi Ledgerwood, RN) Resting Tone [place]: Relaxed (07/23/2016 23:10:Jodi Ledgerwood, RN) Resting Tone [place]: Relaxed (07/23/2016 22:40:Jodi Ledgerwood, RN) Contraction Comments: no contractions noted during palpation, pt reports no feeling of contractions. (07/23/2016 22:40:Jodi Reid RN) Level of Consciousness: Fully Conscious (07/24/2016 08:04:Moses Gunter RN) Level of Consciousness: Fully Conscious (07/24/2016 07:30:Moses Gunter RN) Level of Consciousness: Fully Conscious (07/23/2016 22:20:Jodi Reid RN) DTR's/Clonus: DTRs 2+; No Clonus (07/24/2016 07:30:Moses Gunter RN) DTR's/Clonus: DTRs 2+; No Clonus (07/23/2016 22:20:Jodi Reid RN) Headache: Denies (07/24/2016 08:04:Moses Gunter RN) Headache: Denies (07/24/2016 07:30:Moses Gunter RN) Headache: Denies (07/23/2016 22:20:Jodi Reid RN) Dizziness: No (07/24/2016 07:30:Moses Gunter RN) Dizziness: No (07/23/2016 22:20:Jodi Reid RN) Blurred Vision: No (07/24/2016 07:30:Moses Gunter RN) Blurred Vision: No (07/23/2016 22:20:Jodi Reid RN) Extremity Numbness/Tingling : None (07/24/2016 07:30:Moses Gunter RN) Extremity Numbness/Tingling : None (07/23/2016 22:20:Jodi Reid RN) Extremity Movement: Full Range of Motion (07/24/2016 07:30:Moses Gunter RN) Extremity Movement: Full Range of Motion (07/23/2016 22:20:Jodi Reid RN) Heart Rhythm: Regular (07/24/2016 07:30:Moses Gunter RN) Nailbeds: [place] (07/24/2016 07:30:Moses Gunter RN) Nailbeds: [place] (07/23/2016 22:20:Jodi Reid RN) Capillary Refill: Less than 3 Seconds (07/24/2016 07:30:Moses Gunter RN) Capillary Refill: Less than 3 Seconds (07/23/2016 22:20:Jodi Reid RN) Lower Extremities Edema: None (07/24/2016 07:30:Moses Gunter RN) Lower Extremities Edema Degree: None (07/24/2016 07:30:Moses Gunter RN) Upper Extremities Edema: None (07/24/2016 07:30:Moses Gunter RN) Upper Extremities Edema Degree: None (07/24/2016 07:30:Moses Gunter RN) Facial Edema: None (07/24/2016 07:30:Moses Gunter RN) Facial Edema: None (07/23/2016 22:20:Jodi Reid RN) Jessica's Sign Left Leg: Negative (07/24/2016 07:30:Moses Gunter RN) Jessica's Sign Left Leg: Negative (07/23/2016 22:20:Jodi Reid RN) Jessica's Sign Right Leg: Negative (07/24/2016 07:30:Moses Gunter RN) Jessica's Sign Right Leg: Negative (07/23/2016 22:20:Jodi Reid RN) DVT Risk Age: Age less than 41 years (07/24/2016 07:30:Moses Gunter RN) DVT Risk BMI: BMI 31 to 40 (07/24/2016 07:30:Moses Gunter RN) DVT Risk Surgery: None Applicable (07/24/2016 07:30:Moses Gunter RN) DVT Risk Other: Women Only- or (<1 month) (07/24/2016 07:30:Moses Gunter RN) DVT Risk Total: 2 (07/24/2016 07:30:QS system process) DVT Risk Text: Moderate Risk (10-20%) - Consider stockings, compresssion device, pharmacological therapy per hospital policy (07/24/2016 07:30:QS system process) Respiratory Effort: Unlabored; Regular Rhythm; Equal Expansion (07/24/2016 07:30:Moses Gunter RN) Respiratory Effort: Unlabored; Regular Rhythm; Equal Expansion (07/23/2016 22:20:Jodi Reid RN) Breath Sounds, Left: Clear and Equal (07/24/2016 08:04:Moses Gunter RN) Breath Sounds, Left: Clear and Equal (07/24/2016 07:30:Moses Gunter RN) Breath Sounds, Left: Clear and Equal (07/23/2016 22:20:Jodi Reid RN) Breath Sounds, Right: Clear and Equal (07/24/2016 08:04:Moses Gunter RN) Breath Sounds, Right: Clear and Equal (07/24/2016 07:30:Moses Gunter RN) Breath Sounds, Right: Clear and Equal (07/23/2016 22:20:Jodi Reid RN) Cough Productivity: None (07/24/2016 07:30:Moses Gunter RN) Cough Productivity: None (07/23/2016 22:20:Jodi Reid RN) Nausea/Vomiting: Hx of Nausea/Vomiting (07/24/2016 08:04:Moses Gunter RN) Nausea/Vomiting: Denies (07/24/2016 07:30:Moses Gunter RN) Nausea/Vomiting: Present (07/23/2016 22:20:Jodi Reid RN) Bowel Sounds: Normoactive; All Quadrants (07/24/2016 07:30:Moses Gunter RN) Bowel Sounds: Normoactive; All Quadrants (07/23/2016 22:20:Jodi eRid RN) RUQ Epigastric Pain: Denies (07/24/2016 08:04:Moses Gunter RN) RUQ Epigastric Pain: Denies (07/24/2016 07:30:Moses Gunter RN) RUQ Epigastric Pain: Denies (07/23/2016 22:20:Jodi Reid RN) Bowel Patterns: Soft, Formed Stool (07/23/2016 22:20:Jodi Reid RN) Hemorrhoids: None (07/24/2016 07:30:Moses Gunter RN) Hemorrhoids: None (07/23/2016 22:20:Jodi Reid RN) Diet Type: Regular diet; Advance as Tolerated (07/24/2016 07:30:Moses Gunter RN) Diet Type: Regular diet (07/23/2016 22:20:Jodi Reid RN) Last Meal: 07/23/2016 08:00 (07/23/2016 22:20:Jodi Reid RN) Bladder: Nondistended (07/24/2016 07:30:Moses Gunter RN) Bladder: Nondistended (07/23/2016 22:20:Jodi Reid RN) Frequency of Urination: No (07/24/2016 07:30:Moses Gunter RN) Frequency of Urination: No (07/23/2016 22:20:Jodi Reid RN) Urination Burning: No (07/24/2016 07:30:Moses Gunter RN) Urination Burning: No (07/23/2016 22:20:Jodi Reid RN) CVA Tenderness: No (07/24/2016 07:30:Moses Gunter RN) CVA Tenderness: No (07/23/2016 22:20:Jodi Reid RN) Vaginal Bleeding: None (07/23/2016 22:20:Jodi Reid RN) Vaginal Discharge Amount: None (07/24/2016 07:30:Moses Gunter RN) Vaginal Discharge Color: N/A (07/24/2016 07:30:Moses Gunter RN) Vaginal Discharge Color: N/A (07/23/2016 22:20:Jodi Reid RN) Vaginal Discharge Odor: Non-Odorous (07/24/2016 07:30:Moses Gunter RN) Vaginal Discharge Character: None (07/24/2016 07:30:Moses Gunter RN) Skin Color: Normal for Race (07/24/2016 07:30:Moses Gunter RN) Skin Color: Normal for Race (07/23/2016 22:20:Jodi Reid RN) Skin Temperature: Warm (07/24/2016 07:30:Moses Gunter RN) Skin Temperature: Warm (07/23/2016 22:20:Jodi Reid RN) Skin Moisture: Dry (07/24/2016 07:30:Moses Gunter RN) Skin Moisture: Dry (07/23/2016 22:20:Jodi Reid RN) Jerman Scale Sensory Perception: No Impairment- Responds to verbal commands. Has no sensory deficit which would limit ability to feel or voice pain or discomfort (07/24/2016 07:30:Moses Gunter RN) Jerman Scale Sensory Perception: No Impairment- Responds to verbal commands. Has no sensory deficit which would limit ability to feel or voice pain or discomfort (07/23/2016 22:20:Jodi Reid RN) Jerman Scale Moisture: Rarely Moist- Skin is usually dry. Linen only requires changing at routine intervals (07/24/2016 07:30:Moses Gunter RN) Jerman Scale Moisture: Rarely Moist- Skin is usually dry. Linen only requires changing at routine intervals (07/23/2016 22:20:Jodi Reid RN) Jerman Scale Activity: Walks Frequently- Walks outside the room at least twice a day and inside room at least every 2 hours during the day. (07/24/2016 07:30:Moses Gunter RN) Jerman Scale Activity: Walks Frequently- Walks outside the room at least twice a day and inside room at least every 2 hours during the day. (07/23/2016 22:20:Jodi Reid RN) Jerman Scale Mobility: No Limitations- Makes major and frequent changes in position without assistance (07/24/2016 07:30:Moses Gunter RN) Jerman Scale Mobility: No Limitations- Makes major and frequent changes in position without assistance (07/23/2016 22:20:Jodi Reid RN) Jerman Scale Nutrition: Excellent- Eats most of every meal. Never refuses a meal. Usually eats a total of 4 or more servings of meat and dairy products. Occasionally eats between meals. Does not require supplementation (07/24/2016 07:30:Moses Gunter RN) Jerman Scale Nutrition: Excellent- Eats most of every meal. Never refuses a meal. Usually eats a total of 4 or more servings of meat and dairy products. Occasionally eats between meals. Does not require supplementation (07/23/2016 22:20:Jodi Reid RN) Jerman Scale Friction and Shear: No Apparent Problem- Moves in bed and in chair independently and has sufficient muscle strength to lift up completely during move. Maintains good position in bed or chair at all times (07/24/2016 07:30:Moses Gunter RN) Jerman Scale Friction and Shear: No Apparent Problem- Moves in bed and in chair independently and has sufficient muscle strength to lift up completely during move. Maintains good position in bed or chair at all times (07/23/2016 22:20:Jodi Reid RN) Jerman Scale Total: 23 (07/24/2016 07:30:QS system process) Jerman Scale Total: 23 (07/23/2016 22:20:QS system process) Jerman Scale Risk: No Risk of Pressure Ulcer Noted at this Time (07/24/2016 07:30:QS system process) Jerman Scale Risk: No Risk of Pressure Ulcer Noted at this Time (07/23/2016 22:20:QS system process) Family Support: Significant Other supportive, at bedside frequently (07/23/2016 22:20:Jodi Reid RN) Emotional State: Calm/Relaxed (07/24/2016 07:30:Moses Gunter RN) Emotional State: Calm/Relaxed (07/23/2016 22:20:Jodi Reid RN) Call Denson Within Reach: Yes (07/24/2016 07:30:Moses Gunter RN) Call Denson Within Reach: Yes (07/23/2016 22:20:Jodi Reid RN) Side Rails Up: Yes (07/24/2016 07:30:Moses Gunter RN) Side Rails Up: Yes (07/23/2016 22:20:Jodi Reid RN) Bed Wheels Locked: Yes (07/24/2016 07:30:Moses Gunter RN) Bed Wheels Locked: Yes (07/23/2016 22:20:Jodi Reid RN) Arm Bands Present: Yes (07/24/2016 07:30:Moses Gunter RN) Arm Bands Present: Yes (07/23/2016 22:20:Jodi Reid RN) Isolation: [place] (07/24/2016 07:30:Moses Gunter RN) Fall Risk History of Falling: (0) No (07/23/2016 22:20:Jodi Reid RN) Fall Risk Secondary Diagnosis: (0) No (07/23/2016 22:20:Jodi Reid RN) Fall Risk Ambulatory Aid: (0) None/Bedrest/Wheelchair/Nurse Assist (07/23/2016 22:20:Jodi Reid RN) Fall Risk IV Therapy: (0) No (07/23/2016 22:20:Jodi Reid RN) Fall Risk Gait: (0) Normal/Bedrest/Immobile (07/23/2016 22:20:Jodi Reid RN) Fall Risk Mental Status: (0) Oriented to Own Ability (07/23/2016 22:20:Jodi Reid RN) Fall Risk Score: 0 (07/23/2016 22:20:QS system process) Fall Risk Score Definition: No Risk: No action required (07/23/2016 22:20:QS system process) Pt/Family Education: Handwashing Hygiene (07/23/2016 22:20:Jodi Reid RN) FHR Baseline Rate (bpm) Baby A: 145 (07/24/2016 08:04:Moses Gunter RN) FHR Baseline Rate (bpm) Baby A: 145 (07/24/2016 07:30:Moses Gunter RN) FHR Baseline Rate (bpm) Baby A: 145 (07/24/2016 07:00:Jodi Reid RN) FHR Baseline Rate (bpm) Baby A: 145 (07/24/2016 06:30:Jodi Reid RN) FHR Baseline Rate (bpm) Baby A: 145 (07/24/2016 06:00:Jodi Reid RN) FHR Baseline Rate (bpm) Baby A: 145 (07/24/2016 01:10:Jodi Reid RN) FHR Baseline Rate (bpm) Baby A: 145 (07/24/2016 00:40:Jodi Reid RN) FHR Baseline Rate (bpm) Baby A: 150 (07/24/2016 00:10:Jodi Reid RN) FHR Baseline Rate (bpm) Baby A: 135 (07/23/2016 23:40:Jodi Reid RN) FHR Baseline Rate (bpm) Baby A: 135 (07/23/2016 23:10:Jodi Reid RN) FHR Baseline Rate (bpm) Baby A: 130 (07/23/2016 22:40:Jodi Reid RN) Variability Baby A: Moderate 6-25 bpm (07/24/2016 08:04:Moses Gunter RN) Variability Baby A: Moderate 6-25 bpm (07/24/2016 07:30:Moses Gunter RN) Variability Baby A: Moderate 6-25 bpm (07/24/2016 07:00:Jodi Reid RN) Variability Baby A: Moderate 6-25 bpm (07/24/2016 06:30:Jodi Reid RN) Variability Baby A: Moderate 6-25 bpm (07/24/2016 06:00:Jodi Reid RN) Variability Baby A: Moderate 6-25 bpm (07/24/2016 01:10:Jodi Reid RN) Variability Baby A: Moderate 6-25 bpm (07/24/2016 00:40:Jodi Reid RN) Variability Baby A: Moderate 6-25 bpm (07/24/2016 00:10:Jodi Reid RN) Variability Baby A: Moderate 6-25 bpm (07/23/2016 23:40:Jodi Reid RN) Variability Baby A: Moderate 6-25 bpm (07/23/2016 23:10:Jodi Reid RN) Variability Baby A: Moderate 6-25 bpm (07/23/2016 22:40:Jodi Reid RN) Accelerations Baby A: 15X15 (07/24/2016 08:04:Moses Gunter RN) Accelerations Baby A: 15X15 (07/24/2016 07:30:Moses Gunter RN) Accelerations Baby A: 10X10 (07/24/2016 07:00:Jodi Reid RN) Accelerations Baby A: 15X15 (07/24/2016 06:30:Jodi Reid RN) Accelerations Baby A: 10X10 (07/24/2016 06:00:Jodi Reid RN) Accelerations Baby A: 15X15 (07/24/2016 01:10:Jodi Reid RN) Accelerations Baby A: 15X15 (07/24/2016 00:40:Jodi Reid RN) Accelerations Baby A: 15X15 (07/24/2016 00:10:Jodi Reid RN) Accelerations Baby A: 15X15 (07/23/2016 23:40:Jodi Reid RN) Accelerations Baby A: 15X15 (07/23/2016 23:10:Jodi Reid RN) Accelerations Baby A: 15X15 (07/23/2016 22:40:Jodi Reid RN) Decelerations Baby A: None (07/24/2016 08:04:Moses Gunter RN) Decelerations Baby A: None (07/24/2016 07:30:Moses Gunter RN) Decelerations Baby A: None (07/24/2016 07:00:Jodi Reid RN) Decelerations Baby A: None (07/24/2016 06:30:Jodi Reid RN) Decelerations Baby A: None (07/24/2016 06:00:Jodi Reid RN) Decelerations Baby A: None (07/24/2016 01:10:Jodi Reid RN) Decelerations Baby A: None (07/24/2016 00:40:Jodi Reid RN) Decelerations Baby A: None (07/24/2016 00:10:Jodi Reid RN) Decelerations Baby A: None (07/23/2016 23:40:Jodi Reid RN) Decelerations Baby A: None (07/23/2016 23:10:Jodi Reid RN) Decelerations Baby A: None (07/23/2016 22:40:Jodi Reid RN)
--- NOTE | 2016-07-24 10:46 | L&D Discharge Summary ---
OB Discharge Summary Datetime Report Generated by CPN: 07/24/2016 10:45 DISCHARGE DIAGNOSIS Diagnosis/Symptoms: Dehydration; Nausea/Vomiting Diagnoses/Symptoms Other: nausea and vomitting with that is complicated by insulin dependent diabetes Gestation: 33.0 Number of Babies in Womb: 1 Parity: 2 DIET/ACTIVITY/RESTRICTIONS Diet: Regular Diet Restrictions: diabetic Activity: Normal Activity TEACHING/INSTRUCTIONS/REFERRALS Instructions Given To: Patient Instructions Understood: Patient Verbalized Understanding; Support Person Verbalized Understanding Referrals: None Educational Materials- Other: Dehydration Nausea/Vomiting/Diarrhea GDM Kick Counts Labor Signs DISCHARGE INFORMATION Discharged AMA: No Discharge Date/Time: 07/24/2016 08:50 Discharged To: Home Discharge Provider Name: GARIBAY Accompanied By: Discharge Method: Ambulatory Condition: Stable FOLLOW UP INFORMATION Follow Up With: [facility] Follow Up On: As Scheduled Follow Up Phone Number: [facility] - Comments: Pt discharged via wheelchair accompainied by to drive pt home. No distress noted, no complaints. Understands instructions, to keep scheduled appointments, s/s to report. Pt given prescription for vomiting. GENERAL INSTR-CALL PROVIDER IF: Contractions: Contractions or cramps become more frequent than 8 in one hour or 4 in 20 minutes; Regular painful contractions every 5 minutes or less for one hour. Time your contractions from the beginning of one to the beginning of the next Pressure: Pressure in your vagina or lower abdomen that may feel like the baby is pushing down Period Like Cramps: Period-like cramps or low dull backache that may come and go Cramps/Diarrhea: Abdominal cramps that may be accompanied by diarrhea Gush of Fluid/Blood: Gush of fluid or blood from your vagina (it is normal to have spotting after vaginal exam or intercourse) Vaginal Discharge: Change in the type or amount of vaginal discharge Decreased Movement: Your baby is not moving as much as usual- 4 movements in 1 hour after drinking and resting on side Temperature: Temperature greater than 100.0(F) orally
--- NOTE | 2016-07-24 10:46 | L&D General Admission ---
General Admit Datetime Report Generated by CPN: 07/24/2016 10:45 INFORMATION Patient Age: 30 (03/01/2016 20:11:QS system process) EDC: 09/10/2016 00:00 (05/13/2016 11:27:Jasmin Maguire RNC) : 6 (05/13/2016 11:27:Jasmin Maguire RNC) Para: 2 (05/13/2016 18:25:Jasminstevo Maguire, RNC) Para: 2 (05/13/2016 11:27:Jasmin Maguire, RNC) Term: 2 (05/13/2016 11:27:Jasmin Maguire RNC) : 0 (05/13/2016 11:27:Jasmin Maguire RNC) Spontaneous Abortions: 3 (05/13/2016 11:27:Jasmin Maguire RNC) Induced Abortions: 0 (05/13/2016 11:27:Jasmin Maguire RNC) Livin (05/13/2016 11:27:MITCH Luz) Cesareans: 2 (05/13/2016 11:27:MITCH Luz) VBACs: 0 (05/13/2016 11:27:MITCH Luz) Ectopic: 0 (05/13/2016 11:27:MITCH Luz) Multiple Births: 0 (05/13/2016 11:27:MITCH Luz) Baby, Number in Womb: 1 (05/13/2016 18:25:MITCH Luz) Baby, Number in Womb: 1 (05/13/2016 11:27:MITCH Luz) CARE Primary Laboratory Scientist: [facility] (05/13/2016 11:27:MITCH Luz) Month of 1st Visit: january (05/13/2016 11:27:MITCH Luz) Adequate Care: No (05/13/2016 11:27:MITCH Luz) Prepregnancy Weight (lb): 165 (05/13/2016 11:27:MITCH Luz) Prepregnancy Weight (kg): 75.0 (05/13/2016 11:27:QS system process) Height (in): 64 (07/23/2016 22:37:QS system process) Height (in): 64 (07/23/2016 22:19:QS system process) Height (in): 64 (07/23/2016 22:14:QS system process) Height (in): 64 (05/13/2016 13:15:QS system process) Height (in): 64 (05/13/2016 12:00:QS system process) Height (in): 64 (03/18/2016 11:05:QS system process) Height (in): 64 (03/17/2016 16:17:QS system process) Height (in): 64 (03/17/2016 15:25:QS system process) Height (in): 64 (03/17/2016 15:23:QS system process) Height (in): 64 (03/17/2016 14:42:QS system process) Height (in): 64 (03/04/2016 09:47:QS system process) Height (in): 64 (03/04/2016 09:44:QS system process) Height (in): 64 (03/04/2016 06:28:QS system process) Height (in): 64 (03/02/2016 17:54:QS system process) Height (in): 64 (03/02/2016 04:55:QS system process) Height (in): 64 (03/02/2016 02:32:QS system process) Height (in): 64 (03/02/2016 02:25:QS system process) Height (in): 64 (03/01/2016 20:11:QS system process) ALLERGIES Medication Allergy: No (05/13/2016 11:27:MITCH Luz) Medication Allergies: No Known Allergies (05/09/2016) (05/13/2016 11:18:QS system process) Medication Allergies: No Known Allergies (08/29/2011) (03/01/2016 20:11:QS system process) Latex Allergy: No Latex Allergies (05/13/2016 11:27:Jasmin Maguire [facility]) COMMUNICATION Primary Language: Lithuanian (05/13/2016 11:27:Jodi Reid RN) Communication Barrier(s): None (05/13/2016 11:27:Jodi Reid RN) DEMOGRAPHICS Address: [address] [place] [id number] (05/13/2016 11:18:QS system process) Address: [address] [place] [id number] (03/01/2016 20:11:QS system process) Zipcode: [phone] (03/01/2016 20:11:QS system process) Home (07/23/2016 22:14:QS system process) Home (03/01/2016 20:11:QS system process) N: [id number] (03/01/2016 20:11:QS system process) Next of Kin Name: DAISY LUCIANO (03/17/2016 14:16:QS system process) Next of Kin Name: GRACIE DARBY (03/01/2016 20:11:QS system process) Next of Kin (03/17/2016 14:16:QS system process) Next of Kin (03/01/2016 20:11:QS system process) Next of Kin Relationship: SPO (03/17/2016 14:16:QS system process) Next of Kin Relationship: OR (03/01/2016 20:11:QS system process) Date of : 1985 (03/01/2016 20:11:QS system process) Marital Status: (03/17/2016 14:16:QS system process) Marital Status: Single (03/01/2016 20:11:QS system process) Sex: Female (03/01/2016 20:11:QS system process) Race: (03/01/2016 20:11:QS system process) Ethnicity: Non- or (03/01/2016 20:11:QS system process) Taoism: Southern Faith (03/01/2016 20:11:QS system process) DRUG AND ALCOHOL USE Alcohol: No (05/13/2016 11:27:Jodi Reid RN) Cigarettes: Never Smoker. [id number] (05/13/2016 11:27:Jodi Reid RN) Marijuana: No (05/13/2016 11:27:Jodi Reid RN) Cocaine: No (05/13/2016 11:27:Jodi Reid RN) Other Illicit Drugs: No (05/13/2016 11:27:Jodi Reid RN) VACCINE HISTORY Influenza Vaccine: No (05/13/2016 11:27:Jodi Reid RN) Atmospheric Chemist: [facility] (05/13/2016 11:27:Jodi Reid RN) Feeding Preference: Formula (05/13/2016 11:27:Jodi Reid RN) Benefit of Breast Feed Discussed: Yes (05/13/2016 11:27:Jodi Reid RN) Circumcision: Yes (05/13/2016 11:27:Jodi Reid RN) Classes Attended: No (05/13/2016 11:27:Jodi Reid RN) Tubal Ligation: No (Annotations: Data stored by MEGHANA on behalf of user) (05/13/2016 11:27:Jodi Reid RN) Tubal Authorization Signed: N/A (05/13/2016 11:27:Jodi Reid RN) Consent: N/A (05/13/2016 11:27:Jodi Reid RN) Pain Management Plans: Spinal (05/13/2016 11:27:MITCH Luz) Plans for Labor and Delivery: None (05/13/2016 11:27:MITCH Luz) Support Person: Shmuel (05/13/2016 11:27:Jodi Reid RN) Support Person Relationship: (05/13/2016 11:27:Jodi Reid RN) Cultural/Spritual Practice: No (05/13/2016 11:27:Jodi Reid RN) Spir/Cult Dietary Needs: No (05/13/2016 11:27:Jodi Reid RN) LIVING SITUATION/DISCHARGE PLAN Living Arrangements: Apartment (05/13/2016 11:27:Jodi Reid RN) Adequate Access to:: Electric; Heat; Refrigeration; Plumbing/Running water; Phone; Transportation (05/13/2016 11:27:Jodi Reid RN) WIC Program: Yes (05/13/2016 11:27:Jodi Reid RN) Discharge Radiotelegrapher Person: (05/13/2016 11:27:Jodi Reid RN) Person to Help after Discharge: (05/13/2016 11:27:Jodi Reid RN) Currently Using Commun Resources: Yes (05/13/2016 11:27:Jodi Reid RN) Specify Current Resource Used: WIC (05/13/2016 11:27:Jodi Reid RN) Outside Agency/Cook Fast Food: No (05/13/2016 11:27:Jodi Reid RN) Car Seat for Discharge: Yes (05/13/2016 11:27:Jodi Reid RN) Adoption Requested: No (05/13/2016 11:27:Jodi Reid RN) LABS Blood Type: O Positive (05/13/2016 11:27:MITCH Luz) Hemoglobin: 12.3 (05/13/2016 12:28:QS system process) Hemoglobin: 10.9 L (05/09/2016 12:30:QS system process) Hemoglobin: 10.9 L (05/07/2016 11:15:QS system process) Hemoglobin: 8.5 L (03/19/2016 06:26:QS system process) Hemoglobin: 12.2 (03/17/2016 15:11:QS system process) Hemoglobin: 12.2 (03/01/2016 20:45:QS system process) Hematocrit: 34.2 L (05/13/2016 12:28:QS system process) Hematocrit: 30.9 L (05/09/2016 12:30:QS system process) Hematocrit: 31.0 L (05/07/2016 11:15:QS system process) Hematocrit: 22.5 L (03/19/2016 06:26:QS system process) Hematocrit: 33.5 L (03/17/2016 15:11:QS system process) Hematocrit: 34.9 L (03/01/2016 20:45:QS system process) MCV: 97 (05/13/2016 12:28:QS system process) MCV: 99 H (05/09/2016 12:30:QS system process) MCV: 99 H (05/07/2016 11:15:QS system process) MCV: 92 (03/19/2016 06:26:QS system process) MCV: 95 (03/17/2016 15:11:QS system process) MCV: 98 H (03/01/2016 20:45:QS system process) Gonorrhea: Negative (05/13/2016 11:27:MITCH Luz) Chlamydia: Negative (05/13/2016 11:27:MITCH Luz) RPR/VDRL: Nonreactive (05/13/2016 11:27:MITCH Luz) HIV Results: NEGATIVE (07/21/2016 17:00:QS system process) HIV Results: neg (05/13/2016 11:27:MITCH Luz) Rubella: Immune (05/13/2016 11:27:MITCH Luz) HgB A1c: 5.0 (05/13/2016 12:28:QS system process) HgB A1c: 6.6 H (03/17/2016 15:11:QS system process) HgB A1c: 6.6 H (03/02/2016 07:51:QS system process) OB/PREVIOUS HISTORY Previous Procedures: Ultrasound (05/13/2016 11:27:Jodi Reid RN) Current Procedures: Ultrasound (05/13/2016 11:27:Jodi Reid RN) History of Previous : No (05/13/2016 11:27:Jodi Reid RN) History of Gestational Diabetes: No (05/13/2016 11:27:Jodi Reid RN) History of PIH: No (05/13/2016 11:27:Jodi Reid RN) History of Incompetent Cervix: No (05/13/2016 11:27:Jodi Reid RN) History of Placenta Previa/Abrup: No (05/13/2016 11:27:Jodi Reid RN) History of Macrosomia: No (05/13/2016 11:27:Jodi Reid RN) History of IUGR: No (05/13/2016 11:27:Jodi Reid RN) History of Hemorrhage: No (05/13/2016 11:27:Jodi Reid RN) History of Loss/Stillborn: No (05/13/2016 11:27:Jodi Reid RN) History of : No (05/13/2016 11:27:Jodi Reid RN) History of D (Rh) Sensitization: No (05/13/2016 11:27:Jodi Reid RN) History Recurrent Loss/Stillborn: No (05/13/2016 11:27:Jodi Reid RN) History Depression/PP Depression: No (05/13/2016 11:27:Jodi Reid RN) History of Uterine Anomaly/CYNDY: No (05/13/2016 11:27:Jodi Reid RN) History of Infertility: No (05/13/2016 11:27:Jodi Reid RN) History of ART Treatment: No (05/13/2016 11:27:Jodi Reid RN) History of CYNDY: No (05/13/2016 11:27:Jodi Reid RN) Comments Obstetrical History: 2007- primary 2011- repeat (05/13/2016 11:27:Jodi Reid RN) MEDICAL HISTORY Med Hx Diabetes: Yes (05/13/2016 11:27:Jodi Reid RN) Diabetes Type: Type II - NIDDM (05/13/2016 11:27:Jodi Reid RN) Med Hx Hypertension: Yes (05/13/2016 11:27:Jodi Reid RN) Med Hx Heart Disease: No (05/13/2016 11:27:Jodi Reid RN) Med Hx Autoimmune Disorder: No (05/13/2016 11:27:Jodi Reid RN) Med Hx Kidney Disease/UTI: No (05/13/2016 11:27:Jodi Reid RN) Med Hx Neurologic/Epilepsy: No (05/13/2016 11:27:Jodi Reid RN) Med Hx Psychiatric Disorders: No (05/13/2016 11:27:Jodi Reid RN) Med Hx Hepatitis/Liver Disease: No (05/13/2016 11:27:Jodi Reid RN) Med Hx Varicosities/Phlebitis: No (05/13/2016 11:27:Jodi Reid RN) Med Hx Thyroid Dysfunction: No (05/13/2016 11:27:Jodi Reid RN) Med Hx Trauma/Violence: No (05/13/2016 11:27:Jodi Reid RN) Med Hx Blood Transfusion: No (05/13/2016 11:27:Jodi Reid RN) Med Hx Pulmonary (Asthma,TB): No (05/13/2016 11:27:Jodi Reid RN) Med Hx Breast: No (05/13/2016 11:27:Jodi Reid RN) 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 (05/13/2016 11:27:Jodi Reid RN) Med Hx Hospitalization/Surgery: Yes (05/13/2016 11:27:Jodi Reid RN) Med Hx Anesthetic Complications: No (05/13/2016 11:27:Jodi Reid RN) Med Hx Abnormal Pap Smear: No (05/13/2016 11:27:Jodi Reid RN) Other Medical Diseases: No (05/13/2016 11:27:Jodi Reid RN) Med Hx Significant Family Hx: No (05/13/2016 11:27:Jodi Reid RN) Details of Med/Surg Hx: 2007 and [id number] (05/13/2016 11:27:Jodi Reid RN) INFECTIOUS HISTORY Inf Hx Gonorrhea: Yes (05/13/2016 11:27:MITCH Luz) Inf Hx Chlamydia: Yes (05/13/2016 11:27:MITCH Luz) Inf Hx Syphilis: No (05/13/2016 11:27:Jodi Reid RN) Inf Hx HIV/AIDS: No (05/13/2016 11:27:Jodi Reid RN) Inf Hx Human Papilloma Virus: No (05/13/2016 11:27:Jodi Reid RN) Inf Hx Pt/Partner Genital Herpes: No (05/13/2016 11:27:Jodi Reid RN) Inf Hx Tuberculosis/Exposure: No (05/13/2016 11:27:Jodi Reid RN) Inf Hx Hepatitis B,C: No (05/13/2016 11:27:Jodi Reid RN) Inf Hx Rash or Viral Illness: No (05/13/2016 11:27:Jodi Reid RN) Details of Infectious Hx: Hx Of GC/CHLAM/HSV (05/13/2016 11:27:MITCH Luz) GENETIC HISTORY Gen Hx Age >=35 at ITZEL: No (05/13/2016 11:27:Jodi Reid RN) Gen Hx Thalassemia: No (05/13/2016 11:27:oJdi Reid RN) Gen Hx Congenital Heart Defect: No (05/13/2016 11:27:Jodi Reid RN) Gen Hx Neural Tube Defect: No (05/13/2016 11:27:Jodi Reid RN) Gen Hx Down's Syndrome: No (05/13/2016 11:27:Jodi Reid RN) Gen Hx Puneet-Sachs: No (05/13/2016 11:27:Jodi Reid RN) Gen Hx Gabby: No (05/13/2016 11:27:Jodi Reid RN) Gen Hx Familial Dysautonomia: No (05/13/2016 11:27:Jodi Reid RN) Gen Hx Sickle Cell Disease/Trait: No (05/13/2016 11:27:Jodi Reid RN) Gen Hx Hemophilia/Blood Disorder: No (05/13/2016 11:27:Jodi Reid RN) Gen Hx Muscular Dystrophy: No (05/13/2016 11:27:Jodi Reid RN) Gen Hx Cystic Fibrosis: No (05/13/2016 11:27:Jodi Reid RN) Gen Hx Huntingtons Chorea: No (05/13/2016 11:27:Jodi Reid RN) Gen Hx Mental Retardation/Autism: No (05/13/2016 11:27:Jodi Reid RN) Gen Hx Tested for Fragile X: No (05/13/2016 11:27:Jodi Reid RN) Gen Hx Other Inher/Chromosomal: No (05/13/2016 11:27:Jodi Reid RN) Gen Hx Maternal Metabolic DO: No (05/13/2016 11:27:Jodi Reid RN) Gen Hx Pt Father or FOB Defect: No (05/13/2016 11:27:Jodi Reid RN) Gen Hx Other Genetic History: No (05/13/2016 11:27:Jodi Reid RN) Gen Hx Drugs/Meds since LMP: No (05/13/2016 11:27:Jodi Reid RN)
--- NOTE | 2016-07-24 10:46 | Antepartum Discharge Summary ---
Antepartum DC Datetime Report Generated by CPN: 07/24/2016 10:45 DIET/ACTIVITY/RESTRICTIONS Diet: Regular (07/24/2016 08:16:Moses Jani, RN) Activity: Normal Activity (07/24/2016 08:16:Moses Jani, RN) TEACHING/INSTRUCTIONS/REFERRALS Instructions Given To: Patient (07/24/2016 08:16:Moses Jani, RN) Instructions Understood: Patient Verbalized Understanding; Support Person Verbalized Understanding (07/24/2016 08:16:Moses Gunter RN) Referrals: None (07/24/2016 08:16:Moses Gunter RN) Educational Materials- Other: Dehydration Nausea/Vomiting/Diarrhea GDM Kick Counts Labor Signs (07/24/2016 08:16:Moses Gunter RN) DISCHARGE INFORMATION Discharged AMA: No (07/24/2016 08:16:Moses Gunter RN) Discharge Date/Time: 07/24/2016 08:50 (07/24/2016 08:16:Moses Gunter RN) Discharged To: Home (07/24/2016 08:16:Moses Gunter RN) Discharge Provider Name: GARIBAY (07/24/2016 08:16:Moses Gunter RN) Accompanied By: (07/24/2016 08:16:Moses Gunter RN) Discharge Method: Ambulatory (07/24/2016 08:16:Moses Gunter RN) Condition: Stable (07/24/2016 08:16:Moses Gunter RN) FOLLOW UP INFORMATION [facility] (07/24/2016 08:16:Moses Gunter RN) Follow Up On: As Scheduled (07/24/2016 08:16:Moses Gunter RN) Follow Up Phone Number: [facility] - (07/24/2016 08:16:Moses Gunter RN) Comments: Pt discharged via wheelchair accompainied by to drive pt home. No distress noted, no complaints. Understands instructions, to keep scheduled appointments, s/s to report. Pt given prescription for vomiting. (07/24/2016 08:16:Moses Gunter RN) GENERAL INSTR-CALL PROVIDER IF: Contractions: Contractions or cramps become more frequent than 8 in one hour or 4 in 20 minutes; Regular painful contractions every 5 minutes or less for one hour. Time your contractions from the beginning of one to the beginning of the next (07/24/2016 08:16:Moses Gunter RN) Pressure: Pressure in your vagina or lower abdomen that may feel like the baby is pushing down (07/24/2016 08:16:Moses Gunter RN) Period Like Cramps: Period-like cramps or low dull backache that may come and go (07/24/2016 08:16:Moses Gunter RN) Cramps/Diarrhea: Abdominal cramps that may be accompanied by diarrhea (07/24/2016 08:16:Moses Gunter RN) Gush of Fluid/Blood: Gush of fluid or blood from your vagina (it is normal to have spotting after vaginal exam or intercourse) (07/24/2016 08:16:Moses Gunter RN) Vaginal Discharge: Change in the type or amount of vaginal discharge (07/24/2016 08:16:Moses Gunter RN) Decreased Movement: Your baby is not moving as much as usual- 4 movements in 1 hour after drinking and resting on side (07/24/2016 08:16:Moses Gunter RN) Temperature: Temperature greater than 100.0(F) orally (07/24/2016 08:16:Moses Gunter RN) Hypertension Signs/Symptoms: Severe headache which is not relieved 30 minutes after taking Tylenol(Acetaminophen); Blurry vision or spots before your eyes; Severe heartburn or pain on the upper right side of your abdomen that is not relieved by an antacid; Increased swelling in your face, hands or feet (07/24/2016 08:16:Moses Gunter RN) Urinary Output: Decreased urinary output or dark colored urine (07/24/2016 08:16:Moses Gunter RN) ADDITIONAL INSTRUCTIONS N/V [place]/Crackers: Keep dry toast/crackers with you to munch on (07/24/2016 08:16:Moses Gunter RN) N/V Frequent Meals: Eat small frequent meals (07/24/2016 08:16:Moses Gunter RN) N/V Empty Stomach: Try to keep something in your stomach (don't let your stomach get empty) (07/24/2016 08:16:Moses Gunter RN) N/V Time Getting Up: Take your time getting up (07/24/2016 08:16:Moses Gunter RN) N/V Avoid Smells: Avoid smells that make you feel sick (07/24/2016 08:16:Moses Gunter RN) Travel Seatbelts: Wear seatbelts or safety/lap belts (07/24/2016 08:16:Moses Gunter RN) Travel Walk Frequently: Walk frequently, every 1-2 hours (07/24/2016 08:16:Moses Gunter RN) Travel Comfort Clothes: Wear clothing that does not constrict and comfortable shoes (07/24/2016 08:16:Moses Gunter RN) Travel Light Snack: Keep a light snack (e.g. dry crackers) with you at all times to prevent nausea (07/24/2016 08:16:Moses Gunter RN) Travel Hydration: Drink plenty of water, low sodium and noncaffeinated drinks (07/24/2016 08:16:Moses Gunter RN) Travel Medications: DO NOT take any medication that is not approved by your physician first (07/24/2016 08:16:Moses Gunter RN) Travel PN Records: Always keep a copy of your medical record with you just in case (07/24/2016 08:16:Moses Gunter RN) Edema Avoid Standing: Avoid standing for long periods, keep legs up when you can (07/24/2016 08:16:Moses Gunter RN) Edema Rest on Side: When resting, lie on your side (left is best) (07/24/2016 08:16:Moses Gunter RN) Edema Limit Sodium: Limit the amount of salty foods you eat (07/24/2016 08:16:Moses Gunter RN) Edema Support Hose: Try to wear support hose as much as possible (07/24/2016 08:16:Moses Gunter RN) Exercise Overheating: Avoid situations that would cause you to become overheated (07/24/2016 08:16:Moses Gunter RN) Exercise Weather: Exercise outdoors only if the weather is reasonable and not too hot (07/24/2016 08:16:Moses Gunter RN) Exercise Exertion: Do not over exert yourself when you exercise (07/24/2016 08:16:Moses Gunter RN) Exercise Hydration: Drink plenty of fluids, especially water (07/24/2016 08:16:Moses Gunter RN) Exercise Support: Wear good support hose, bra and shoes when exercising (07/24/2016 08:16:Moses Gunter RN) Varicose Veins Instructions: Do not stand for long periods of time (07/24/2016 08:16:Moses Gunter RN) Varicose Veins Elevate Sit: Try to keep your legs elevated when you are sitting (07/24/2016 08:16:Moses Gunter RN) Varicose Veins Elevate Lying: When lying down, keep your legs elevated (07/24/2016 08:16:Moses Gunter RN) Varicise Veins Non Binding: When wearing stockings or socks, make sure they are not too tight and bind your legs (07/24/2016 08:16:Moses Gunter RN) Varicose Veins Support: Wear support hose/stockings at all times (07/24/2016 08:16:Moses Gunter RN) Varicose Veins Periodic Move: If you have a job where you sit a lot, get up periodically and walk around (07/24/2016 08:16:Moses Gunter RN)
--- NOTE | 2016-07-25 10:45 | L&D Admission Assessment ---
LD ADM ASMT Datetime Report Generated by CPN: 07/25/2016 10:45 Weight (lb): 169 (07/25/2016 08:45:QS system process) Weight (kg): 76.8 (07/25/2016 08:45:QS system process) Total Wt Gain (lb): 4 (07/25/2016 08:45:QS system process) Wt Gain (kg): 2.0 (07/25/2016 08:45:QS system process) BMI: 29.0 (07/25/2016 08:45:QS system process)
--- NOTE | 2016-07-25 10:45 | L&D Discharge Summary ---
OB Discharge Summary Datetime Report Generated by CPN: 07/25/2016 10:45 DISCHARGE DIAGNOSIS Diagnosis/Symptoms: Dehydration; Nausea/Vomiting Diagnoses/Symptoms Other: nausea and vomitting with that is complicated by insulin dependent diabetes Gestation: 33.1 Number of Babies in Womb: 1 Parity: 2 DIET/ACTIVITY/RESTRICTIONS Diet: Regular Diet Restrictions: diabetic Activity: Normal Activity TEACHING/INSTRUCTIONS/REFERRALS Instructions Given To: Patient Instructions Understood: Patient Verbalized Understanding; Support Person Verbalized Understanding Referrals: None Educational Materials- Other: Dehydration Nausea/Vomiting/Diarrhea GDM Kick Counts Labor Signs DISCHARGE INFORMATION Discharged AMA: No Discharge Date/Time: 07/24/2016 08:50 Discharged To: Home Discharge Provider Name: GARIBAY Accompanied By: Discharge Method: Ambulatory Condition: Stable FOLLOW UP INFORMATION Follow Up With: [facility] Follow Up On: As Scheduled Follow Up Phone Number: [facility] - Comments: Pt discharged via wheelchair accompainied by to drive pt home. No distress noted, no complaints. Understands instructions, to keep scheduled appointments, s/s to report. Pt given prescription for vomiting. GENERAL INSTR-CALL PROVIDER IF: Contractions: Contractions or cramps become more frequent than 8 in one hour or 4 in 20 minutes; Regular painful contractions every 5 minutes or less for one hour. Time your contractions from the beginning of one to the beginning of the next Pressure: Pressure in your vagina or lower abdomen that may feel like the baby is pushing down Period Like Cramps: Period-like cramps or low dull backache that may come and go Cramps/Diarrhea: Abdominal cramps that may be accompanied by diarrhea Gush of Fluid/Blood: Gush of fluid or blood from your vagina (it is normal to have spotting after vaginal exam or intercourse) Vaginal Discharge: Change in the type or amount of vaginal discharge Decreased Movement: Your baby is not moving as much as usual- 4 movements in 1 hour after drinking and resting on side Temperature: Temperature greater than 100.0(F) orally
--- NOTE | 2016-07-25 10:45 | L&D General Admission ---
General Admit Datetime Report Generated by CPN: 07/25/2016 10:45 Height (in): 64 (07/25/2016 08:45:QS system process)
== END 2016-07-24 08:50 | disposition home or self-care (01) ==
LOC: EDSTATUS 21:56 → LC 22:14 → UNDOADMOB 07-24 01:33 → LR 07-24 01:33 → LC 07-24 08:50 → UNDODISOB 07-24 08:50
PROVIDERS: ATTEND Obstetrics & Gynecology
PROC: 4A1HXCZ Monitoring of Products of Conception, Cardiac Rate, External Approach (ICD-10-PCS; principal; 2016-07-23)
DX: O21.2 Late vomiting of pregnancy (principal); Z3A.33 33 weeks gestation of pregnancy
CPT/HCPCS: 59025; 36415; 82962; 80053; 81001; 80307; J2550; J2405

== ENCOUNTER 2016-07-26 09:53 | Emergency (ER) | payer MEDICARE, MEDICAID ==
[2016-07-26] MEDS ORDERED: PROMETHAZINE HCL 25 MG TABLET PO ONE (10:11)
--- NOTE | 2016-07-26 10:12 | ER Document Report ---
ED Medical Screen (RME) - General Stated Complaint: DIFFICULTY BREATHING Time seen by provider: 10:07 Mode of Arrival: Ambulatory Information source: Patient TRAVEL OUTSIDE OF THE [place] IN LAST 30 DAYS: No - HPI Patient complains to provider of: DIFFICULTY BREATHING AND ABD PAIN Onset: Other - LAST NIGHT Onset/Duration: Sudden Context: PT 8 MONTHS . 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 Quality of pain: Sharp Severity: Severe Pain Level: 5 Associated Symptoms: Abdominal pain, Nausea, Vomiting - X 5-6 Exacerbated by: Denies Relieved by: Denies Similar symptoms previously: No Recently seen / treated by doctor: Yes Notes: 07/26/16 10:11 LUNGS CTA IN RME - Related Data Smoking: Non-smoker Frequency of alcohol use: None Drug Abuse: None Allergies/Adverse Reactions: No Known Allergies Allergy (Verified 07/26/16 10:07) Past Medical History - Past Medical History Cardiac Medical History: Denies: Hx Hypertension, Hx Pulmonary Embolism, Hx Heart Murmur Pulmonary Medical History: Denies: Hx Asthma, Hx Sleep Apnea, Hx Tuberculosis Neurological Medical History: Reports: Hx Seizures. Denies: Hx Cerebrovascular Accident Endocrine Medical History: Reports: Hx Diabetes Mellitus Type 2. Denies: Hx Hyperthyroidism, Hx Hypothyroidism Renal/ Medical History: Denies: Hx Kidney Stones, Hx Ovarian Cysts, Hx Pelvic Inflammatory Disease Malignancy Medical History: Denies: Hx Breast Cancer, Hx Cervical Cancer, Hx Ovarian Cancer GI Medical History: Denies: Hx Gastroesophageal Reflux Disease, Hx Hiatal Hernia , Hx Ulcer Musculoskeltal Medical History: Denies Hx Fibromyalgia Psychiatric Medical History: Denies: Hx Bipolar Disorder, Hx Depression, Hx Post Traumatic Stress Disorder , Hx Schizophrenia Traumatic Medical History: Denies: Hx Fractures Infectious Medical History: Denies: Hx HIV Past Surgical History: Reports: Hx Section. Denies: Hx Pacemaker - Immunizations Hx Diphtheria, Pertussis, Tetanus Vaccination: No Physical Exam - Vital signs Vitals: Temp Pulse Resp BP Pulse Ox 97.6 F 87 16 130/74 H 100 07/26/16 10:05 07/26/16 10:05 07/26/16 10:05 07/26/16 10:07/26/16 10:05 Course - Vital Signs Vital signs: Temp Pulse Resp BP Pulse Ox 97.6 F 87 16 130/74 H 100 07/26/16 10:05 07/26/16 10:05 07/26/16 10:05 07/26/16 10:05 07/26/16 10:05 - Laboratory Laboratory results interpreted by me: 07/26/16 10:15 Urine Protein 100 H Urine Ketones 80 H Ur Leukocyte Esterase SMALL H
[2016-07-26 10:35] LABS: APPEARANCE,URINE SLIGHTLY-CLOUDY; BILIRUBIN,URINE NEGATIVE (NEGATIVE); GLUCOSE, URINE NEGATIVE (NEGATIVE); KETONES,URINE 80 mg/dL (NEGATIVE); LEUKOCYTE ESTERASE,URINE SMALL (NEGATIVE); NITRITE,URINE NEGATIVE (NEGATIVE); PROTEIN,URINE 100 mg/dL (NEGATIVE); URINE SPECIFIC GRAVITY 1.024; UROBILINOGEN,URINE NEGATIVE mg/dL (<2.0)
[2016-07-26] MEDS ORDERED: DEXTROSE 5%-NORMAL SALINE 1,000 ML IV ONE (10:59)
--- NOTE | 2016-07-26 10:59 | ER Document Report ---
ED GI/ - General Chief Complaint: Vomiting Stated Complaint: DIFFICULTY BREATHING Time seen by provider: 10:57 Mode of Arrival: Ambulatory Information source: Patient Notes: This is a 30-year-old female 3 para 2, 8 months who presents to the emergency room with nausea, vomiting, not tolerating by mouth. Patient states that she's had similar symptoms for the whole . She was last in labor and delivery 2 days ago. She does complain of abdominal discomfort with retching. She does feel bloated and states that she is "having difficulty breathing) ". She denies any fever, chills, nausea vomiting. The patient denies any lower calf pain or leg swelling. Note: Patient did state she had a small amount of vaginal bleeding this morning and does report some abdominal cramping. Patient's blood type is O+ TRAVEL OUTSIDE OF THE [place] IN LAST 30 DAYS: No - HPI Patient complains to provider of: , Other - Abdominal cramping. Onset: Just prior to arrival Timing/Duration: Gradual Quality of pain: Achy, Cramping, Dull Severity at maximum: Mild Severity in ED: None Pain Level: Denies Location: Suprapubic Vaginal bleeding (Compared to normal period): None Sexual history: Inactive Associated symptoms: Shortness of breath. denies: Chest pain Exacerbated by: Denies Relieved by: Denies Similar symptoms previously: Yes Recently seen / treated by doctor: Yes - Related Data Allergies/Adverse Reactions: No Known Allergies Allergy (Verified 07/26/16 10:07) Past Medical History - General Information source: Patient - Social History Smoking Status: Unknown if Ever Smoked Chew tobacco use (# tins/day): No Frequency of alcohol use: None Drug Abuse: None Lives with: Family Family History: Reviewed & Not Pertinent Patient has suicidal ideation: No Patient has homicidal ideation: No - Past Medical History Cardiac Medical History: Denies: Hx Hypertension, Hx Pulmonary Embolism, Hx Heart Murmur Pulmonary Medical History: Denies: Hx Asthma, Hx Sleep Apnea, Hx Tuberculosis Neurological Medical History: Reports: Hx Seizures. Denies: Hx Cerebrovascular Accident Endocrine Medical History: Reports: Hx Diabetes Mellitus Type 2. Denies: Hx Hyperthyroidism, Hx Hypothyroidism Renal/ Medical History: Denies: Hx Kidney Stones, Hx Ovarian Cysts, Hx Peritoneal Dialysis, Hx Pelvic Inflammatory Disease Malignancy Medical History: Denies: Hx Breast Cancer, Hx Cervical Cancer, Hx Ovarian Cancer GI Medical History: Denies: Hx Gastroesophageal Reflux Disease, Hx Hiatal Hernia , Hx Ulcer Musculoskeltal Medical History: Denies Hx Fibromyalgia Psychiatric Medical History: Denies: Hx Bipolar Disorder, Hx Depression, Hx Post Traumatic Stress Disorder , Hx Schizophrenia Traumatic Medical History: Denies: Hx Fractures Infectious Medical History: Denies: Hx HIV Past Surgical History: Reports: Hx Section. Denies: Hx Pacemaker - Immunizations Hx Diphtheria, Pertussis, Tetanus Vaccination: No Hx Pneumococcal Vaccination: 06/22/10 Review of Systems - Review of Systems Constitutional: denies: Chills, Fever EENT: No symptoms reported Cardiovascular: No symptoms reported Respiratory: See HPI Gastrointestinal: See HPI Genitourinary: No symptoms reported Female Genitourinary: No symptoms reported Musculoskeletal: No symptoms reported Skin: No symptoms reported Hematologic/Lymphatic: No symptoms reported Neurological/Psychological: No symptoms reported Physical Exam - Vital signs Vitals: Temp Pulse Resp BP Pulse Ox 97.6 F 87 16 130/74 H 100 07/26/16 10:05 07/26/16 10:05 07/26/16 10:05 07/26/16 10:05 07/26/16 10:05 Notes: Physical exam: GENERAL: 30-year-old female, alert and oriented 3, no acute respiratory distress. Her oxygen saturation is 100% on room air, she does not appear dyspneic or tachypnic. She is retching. HEAD: Atraumatic, normocephalic. EYES: Pupils equal round and reactive to light, extraocular movements intact, sclera anicteric, conjunctiva are normal. ENT: TMs normal, nares patent, oropharynx clear without exudates. Moist mucous membranes. NECK: Normal range of motion, supple without lymphadenopathy or JVD. LUNGS: Breath sounds clear to auscultation bilaterally and equal. No wheezes rales or rhonchi. HEART: Regular rate and rhythm without murmurs, rubs or gallops. ABDOMEN: Soft, nontender, insistent with a months , normoactive bowel sounds. No guarding, no rebound. No masses appreciated. EXTREMITIES: Normal range of motion, no pitting or edema. No clubbing or cyanosis. NEUROLOGICAL: Cranial nerves II through XII grossly intact. Normal speech, normal gait. PSYCH: Normal mood, normal affect. SKIN: Warm, Dry, normal turgor, no rashes or lesions noted. Course - Re-evaluation Re-evalutation: 07/26/16 16:[address] Red Beach of OB. The patient did have some small amount of vaginal bleeding with abdominal cramping early today. The ultrasound looks good. The patient's oxygen saturation was 100% on room air and her lungs are clear. She was given IV fluids, IV Reglan and IV Benadryl for hyperemesis. The plan will be to discharge her to labor and delivery for monitoring. Labs show no evidence of hemolysis. 07/26/16 16:38 07/26/16 20:25 - Vital Signs Vital signs: Temp Pulse Resp BP Pulse Ox 97.6 F 87 16 106/68 100 07/26/16 10:05 07/26/16 10:05 07/26/16 16:51 07/26/16 16:51 07/26/16 16:51 - Laboratory Result Diagrams: 07/26/16 11:20 07/26/16 11:20 Laboratory results interpreted by me: 07/26/16 07/26/16 07/26/16 10:15 11:20 11:20 RBC 3.38 L Hgb 11.5 L Hct 33.2 L MCV 98 H MCH 33.9 H Fibrinogen Sodium 136.2 L Carbon Dioxide 17 L Creatinine 0.43 L Glucose 116 H Urine Protein 100 H Urine Ketones 80 H Ur Leukocyte Esterase SMALL H 07/26/16 11:20 RBC Hgb Hct MCV MCH Fibrinogen 618 H Sodium Carbon Dioxide Creatinine Glucose Urine Protein Urine Ketones Ur Leukocyte Esterase - Diagnostic Test Radiology reviewed: Image reviewed, Reports reviewed - OB ultrasound shows 33 weeks, 4 days Discharge - Discharge Clinical Impression: hyperemesis Condition: Stable Disposition: HOME, SELF-CARE Additional Instructions: The plan is for patient to be discharged to labor and delivery. Prescriptions: Metoclopramide HCl [Reglan 10 mg Tablet] 1 - 2 tab PO ASDIR PRN #25 tablet PRN Reason: Referrals: ASHLEY BEACH MD [Primary Care Provider] - Follow up as needed
[2016-07-26] MEDS ORDERED: DIPHENHYDRAMINE HCL 50 MG/ML VIAL IV ONE (11:00)
[2016-07-26] MEDS ORDERED: METOCLOPRAMIDE HCL INJ/PF 10 MG/2 ML SDV IV ONE (11:00)
[2016-07-26 11:42] LABS: ABSOLUTE LYMPHOCYTES (AUTO) 1.1 10^3/uL (0.5-4.7); ABSOLUTE MONOCYTES (AUTO) 0.4 10^3/uL (0.1-1.4); ABSOLUTE NEUT (AUTO) 4.3 10^3/uL (1.7-8.2); BASOPHILS % (AUTO) 0.5 % (0-2); EOSINOPHILS % (AUTO) 0.2 % (0-6); HEMATOCRIT 33.2 % (36.0-47.0); HEMOGLOBIN 11.5 g/dL (12.0-15.5); HGB HCT DIFFERENCE 1.3; LYMPHOCYTES % (AUTO) 19.4 % (13-45); MEAN CORPUSCULAR HEMOGLOBIN 33.9 pg (27.0-33.4); MEAN CORPUSCULAR HGB CONC 34.6 g/dL (32.0-36.0); MEAN CORPUSCULAR VOLUME 98 fl (80-97); MONOCYTES % (AUTO) 6.2 % (3-13); RED BLOOD COUNT 3.38 10^6/uL (3.72-5.28); RED CELL DISTRIBUTION WIDTH 12.9 % (11.5-14.0); SEGMENTED NEUTROPHILS % (AUTO) 73.7 % (42-78); WHITE BLOOD COUNT 5.8 10^3/uL (4.0-10.5)
[2016-07-26 11:43] LABS: PROTHROMBIN TIME 13.3 SEC (11.4-15.4)
[2016-07-26 11:44] LABS: FIBRINOGEN 618 mg/dL (209-497); PARTIAL THROMBOPLASTIN TIME 28.7 SEC (23.5-35.8)
[2016-07-26 11:54] LABS: ALANINE AMINOTRANSFERASE 25 U/L (9-52); ALBUMIN 4.1 g/dL (3.5-5.0); ALKALINE PHOSPHATASE 111 U/L (38-126); ANION GAP 16 (5-19); ASPARTATE AMINO TRANSFERASE 19 U/L (14-36); BILIRUBIN,TOTAL 1.1 mg/dL (0.2-1.3); BLOOD UREA NITROGEN 7 mg/dL (7-20); CALCIUM 9.6 mg/dL (8.4-10.2); CARBON DIOXIDE 17 mmol/L (22-30); CHLORIDE 103 mmol/L (98-107); CREATININE RESULT 0.43 mg/dL (0.52-1.25); GLUCOSE 116 mg/dL (75-110); LDH 435 U/L (313-618); POTASSIUM 3.7 mmol/L (3.6-5.0); SODIUM 136.2 mmol/L (137-145); TOTAL PROTEIN 7.2 g/dL (6.3-8.2)
[2016-07-26 17:35] VITALS: BP 106/68
== END 2016-07-26 17:00 | disposition home or self-care (01) ==
LOC: ER 09:53
DX: O21.0 Mild hyperemesis gravidarum (principal); O46.93 Antepartum hemorrhage, unspecified, third trimester; O26.893 Other specified pregnancy related conditions, third trimester; R10.30 Lower abdominal pain, unspecified; R06.02 Shortness of breath; O24.113 Pre-existing type 2 diabetes mellitus, in pregnancy, third trimester; E11.9 Type 2 diabetes mellitus without complications; Z3A.33 33 weeks gestation of pregnancy
CPT/HCPCS: 99284; 96361; 96374; 96375; 36415; 83010; 83615; 85025; 85384; 85610; 85730; 80053; 81001; 76805; J1200; J2765; A9270

== ENCOUNTER 2016-07-26 16:47 | Outpatient (CLI) | payer MEDICARE, MEDICAID ==
[2016-07-26] MEDS ORDERED: RINGERS SOLUTION,LACTATED 1,000 ML IV PRN (17:42)
[2016-07-26 17:44] LABS: APPEARANCE,URINE SLIGHTLY-CLOUDY; BILIRUBIN,URINE NEGATIVE (NEGATIVE); GLUCOSE, URINE NEGATIVE (NEGATIVE); KETONES,URINE 80 mg/dL (NEGATIVE); LEUKOCYTE ESTERASE,URINE TRACE (NEGATIVE); NITRITE,URINE NEGATIVE (NEGATIVE); PROTEIN,URINE 30 mg/dL (NEGATIVE); URINE SPECIFIC GRAVITY 1.018; UROBILINOGEN,URINE NEGATIVE mg/dL (<2.0)
--- NOTE | 2016-07-26 18:01 | L&D Flow Sheet ---
LD Flowsheet Datetime Report Generated by CPN: 07/26/2016 18:00 Datetime: 07/26/2016 17:48 NBP Sys/Myranda/Mean (mmHg): 118 (QS system process) : 69 (QS system process) : 87 (QS system process) Pulse: 88 (QS system process) LaborFlag: Antepartum (QS system process) Datetime: 07/26/2016 17:45 Monitor Mode: External; Palpation (Alexastevo Lechuga RN) Frequency (min): 0 (Alexa Lechuga RN) Resting Tone (Palpate): Relaxed (Alexa Lechuga RN) Monitor Mode: External US (Alexa Lechuga RN) FHR Baseline Rate : 145 (Alexa Lechuga RN) Variability: Moderate 6-25 bpm (Alexa Lechuga RN) Accelerations: 10X10 (Alexa Lechuga RN) Decelerations: None (Alexa Lechuga RN) Datetime: 07/26/2016 17:24 Contraction Comments: Pt denies any contractions. (Job Gaston, SN) Pain Scale: 0 (Jobemma ArvizuGaston, SN) Pain Presence: None/Denies (Job Gaston, SN) Pain Type: N/A (Job Gaston, SN) Vaginal Bleeding: None (Jobemma ArvizuGaston, SN) Level of Consciousness: Fully Conscious (Job Gaston, SN) DTR's/Clonus: DTRs 1+ (Job Gaston, SN) Headache: Denies (Job Arvizurey, SN) Breath Sounds, Left: Clear and Equal (Job Gaston, SN) Breath Sounds, Right: Clear and Equal (Job Gaston, SN) Nausea/Vomiting: Hx of Nausea/Vomiting (Job Gaston, SN) RUQ Epigastric Pain: Denies (Job Kearneyphrey, SN) Instructional Method: Verbal; Patient Instructed; Verbalized Understanding (Alexa Lechuga RN) Plan of Care: Plan of Care Discussed (Alexa Lechuga RN) Unit Routine: [place] to Room; Call Denson; Unit Personnel; Handwashing; Monitoring (Alexa Lechuga RN) LaborFlag: Antepartum (QS system process) Datetime: 07/26/2016 17:23 NBP Sys/Myranda/Mean (mmHg): 128 (QS system process) : 73 (QS system process) : 95 (QS system process) Pulse: 87 (QS system process) LaborFlag: Antepartum (QS system process) Datetime: 07/26/2016 17:21 Communication Comments: Dr. Beach called. Report including patient evaluated in ED for hyperemesis and SOB. Plan of care discussed. ED provider discussed plan of care w/ Dr Beach. Valerie d/c home w/ reactive NST. (Alexa Lechuga RN)
--- NOTE | 2016-07-26 18:06 | Non Stress Test Report ---
Non Stress Test Datetime Report Generated by CPN: 07/26/2016 18:05 DEMOGRAPHIC Test Number: 3 EGA NST: 33.3 INDICATION Indication for Study: Other Indication for Study (NST) Other: vomiting, dehydration MONITORING Monitor Explained: Monitor Explained; Test Explained; Patient Verbalized Understanding Time on Monitor: 07/26/2016 17:18 Time off Monitor: 07/26/2016 18:02 NST Duration: 44 NST INTERVENTIONS NST Interventions: PO Hydration; Reposition Patient Physician Notified NST: Dr Beach BABY A Movement : Present Contraction Frequency : 0 FHR Baseline : 145 Accelerations : 15X15 Decelerations : None Variability : Moderate 6-25bpm NST Review: Meets Criteria for Reactive NST NST Review and Verified By : HSuzanne Dipti, RN NST Results: Reactive NST REPORT Report Trigger: Send Report
[2016-07-26 18:11] LABS: URINE BARBITURATES SCREEN NEGATIVE; URINE METHADONE SCREEN NEGATIVE; URINE OPIATES LOW NEGATIVE; URINE PHENCYCLIDINE SCREEN NEGATIVE
--- NOTE | 2016-07-26 20:01 | L&D Flow Sheet ---
LD Flowsheet Datetime Report Generated by CPN: 07/26/2016 20:00 Datetime: 07/26/2016 18:24 Comments: Monitors removed (Alexa Lechuga RN) Patient Care Comments: IV d/c (Alexa Lechuga RN) Instructional Method: Verbal; Written; Patient Instructed; Verbalized Understanding (Alexa Lechuga RN) Plan of Care: Plan of Care Discussed (Alexa Lechuga RN) Teaching Comments: See d/c summary (Alexa Lechuga RN) Communication Comments: Dr Beach at bedside. [facility] reviewed. D/C instructions reviewed. (Alexa Lechuga RN) Datetime: 07/26/2016 18:18 NBP Sys/Myranda/Mean (mmHg): 129 (QS system process) : 69 (QS system process) : 93 (QS system process) Pulse: 87 (QS system process) Respirations: 16 (Alexa Lechuga RN) LaborFlag: Antepartum (QS system process) Datetime: 07/26/2016 18:15 Monitor Mode: External; Palpation (Alexa Lechuga RN) Frequency (min): 0 (Alexa Lechuga RN) Resting Tone (Palpate): Relaxed (Alexa Lechuga RN) Monitor Mode: External US (Alexa Lechuga RN) FHR Baseline Rate : 145 (Alexa Lechuga RN) Variability: Moderate 6-25 bpm (Alexa Lechuga RN) Accelerations: 15X15 (Alexa Lechuga RN) Decelerations: None (Alexa Lechuga RN)
== END 2016-07-26 19:10 | disposition home or self-care (01) ==
LOC: LC 16:47
PROVIDERS: ATTEND Obstetrics & Gynecology
PROC: 4A1HXCZ Monitoring of Products of Conception, Cardiac Rate, External Approach (ICD-10-PCS; principal; 2016-07-26)
DX: O21.2 Late vomiting of pregnancy (principal); O99.283 Endocrine, nutritional and metabolic diseases complicating pregnancy, third trimester; E86.0 Dehydration; Z3A.33 33 weeks gestation of pregnancy
CPT/HCPCS: 99284; 96361; 96374; 96375; 59025; 36415; 83010; 83615; 85025; 85384; 85610; 85730; 80053; 81001; 80307; 76805; J1200; J2765; A9270

== ENCOUNTER 2016-07-28 08:26 | Emergency (ER) | payer MEDICARE, MEDICAID ==
[2016-07-28 08:33] VITALS: BP 146/86
[2016-07-28] MEDS ORDERED: PROMETHAZINE HCL INJ 25 MG/1 ML VIAL IV ONE (10:06)
[2016-07-28] MEDS ORDERED: NORMAL SALINE 1000 ML 1,000 ML IV ONE (10:17)
--- NOTE | 2016-07-28 10:17 | ER Document Report ---
ED GI/ - General Chief Complaint: Abdominal Pain Stated Complaint: ABDOMINAL PAIN Information source: Patient Notes: 30-year-old female 0028 months who presents with vomiting and some abdominal "cramping". She states the cramping is diffuse. Intermittent with vomiting. She denies any radiation to the back. She denies any dysuria. She denies any diarrhea or fevers. Patient states she was just discharged from the OB service on the fourth secondary to hyperemesis gravidarum. Patient states they provided her Reglan which has been insufficient. 5 bouts of nonbloody emesis over the last 24 hours. TRAVEL OUTSIDE OF THE [place] IN LAST 30 DAYS: No - HPI Patient complains to provider of: Other - See above Onset: Other - See above Timing/Duration: Gradual Quality of pain: Achy Severity at maximum: Moderate Severity in ED: Moderate Pain Level: Denies Location: Other - See above Vaginal bleeding (Compared to normal period): None Associated symptoms: Other - See above Exacerbated by: Denies Relieved by: Denies - Related Data Allergies/Adverse Reactions: No Known Allergies Allergy (Verified 07/28/16 08:38) Past Medical History - General Information source: Patient - Social History Smoking Status: Never Smoker Chew tobacco use (# tins/day): No Frequency of alcohol use: None Drug Abuse: None Family History: Reviewed & Not Pertinent Patient has suicidal ideation: No Patient has homicidal ideation: No - Past Medical History Cardiac Medical History: Denies: Hx Hypertension, Hx Pulmonary Embolism, Hx Heart Murmur Pulmonary Medical History: Denies: Hx Asthma, Hx Sleep Apnea, Hx Tuberculosis Neurological Medical History: Reports: Hx Seizures. Denies: Hx Cerebrovascular Accident Endocrine Medical History: Reports: Hx Diabetes Mellitus Type 2. Denies: Hx Hyperthyroidism, Hx Hypothyroidism Renal/ Medical History: Denies: Hx Kidney Stones, Hx Ovarian Cysts, Hx Peritoneal Dialysis, Hx Pelvic Inflammatory Disease Malignancy Medical History: Denies: Hx Breast Cancer, Hx Cervical Cancer, Hx Ovarian Cancer GI Medical History: Denies: Hx Gastroesophageal Reflux Disease, Hx Hiatal Hernia , Hx Ulcer Musculoskeltal Medical History: Denies Hx Fibromyalgia Psychiatric Medical History: Denies: Hx Bipolar Disorder, Hx Depression, Hx Post Traumatic Stress Disorder , Hx Schizophrenia Traumatic Medical History: Denies: Hx Fractures Infectious Medical History: Denies: Hx HIV Past Surgical History: Reports: Hx Section. Denies: Hx Pacemaker - Immunizations Hx Diphtheria, Pertussis, Tetanus Vaccination: No Hx Pneumococcal Vaccination: 06/22/10 Review of Systems - Review of Systems Constitutional: denies: Fever EENT: denies: Eye discharge, Nose discharge Respiratory: denies: Short of breath Gastrointestinal: Vomiting Genitourinary: denies: Dysuria Musculoskeletal: denies: Leg swelling Skin: Other - no hives. denies: Rash Neurological/Psychological: Other - no slurred speech -: Yes All other systems reviewed and negative Physical Exam - Vital signs Vitals: Temp Pulse Resp BP Pulse Ox 98.1 F 87 16 146/86 H 99 07/28/16 08:31 07/28/16 08:31 07/28/16 08:31 07/28/16 08:31 07/28/16 08:31 Notes: Reviewed vital signs and nursing note as charted by RN. CONSTITUTIONAL: Alert and oriented and responds appropriately to questions. Well -appearing; well-nourished HEAD: Normocephalic; atraumatic CARD: Regular rate and rhythm; no murmurs, no clicks, no rubs, no gallops; symmetric distal pulses RESP: Normal chest excursion without splinting or tachypnea; breath sounds clear and equal bilaterally; no wheezes, no rhonchi, no rales ABD/GI: Normal bowel sounds; gravid consistent with dates. Very minimally tender in the bilateral upper quadrants of the abdomen. No lower abdominal tenderness. BACK: The back appears normal and is non-tender to palpation, there is no CVA tenderness EXT: Normal ROM in all joints; non-tender to palpation; no cyanosis, no effusions, no edema SKIN: Normal color for age and race; warm; dry; good turgor; capillary refill < 2 seconds; no acute lesions noted NEURO: Moves all extremities equally; Motor and sensory function intact PSYCH: The patient's mood and manner are appropriate. Grooming and personal hygiene are appropriate. Course - Re-evaluation Re-evalutation: 07/28/16 10:14 Given the history and physical examination we will obtain basic labs, provide fluids and antinausea medications, and called labor and delivery. Patient's vital signs as recorded. I spoke with Jenni the charge nurse with labor and delivery and she agrees that the patient should be transferred up to labor and delivery for further evaluation. - Vital Signs Vital signs: Temp Pulse Resp BP Pulse Ox 98.1 F 87 16 146/86 H 99 07/28/16 08:31 07/28/16 08:31 07/28/16 08:31 07/28/16 08:31 07/28/16 08:31 Discharge - Discharge Clinical Impression: Hyperemesis gravidarum, Abdominal cramping affecting Condition: Fair Disposition: LABOR CHECK Additional Instructions: Please go directly to labor and delivery for further evaluation in labor check as we have discussed.
[2016-07-28 10:19] LABS: ABSOLUTE LYMPHOCYTES (AUTO) 1.6 10^3/uL (0.5-4.7); ABSOLUTE MONOCYTES (AUTO) 0.4 10^3/uL (0.1-1.4); ABSOLUTE NEUT (AUTO) 3.4 10^3/uL (1.7-8.2); BASOPHILS % (AUTO) 0.3 % (0-2); EOSINOPHILS % (AUTO) 0.4 % (0-6); HEMATOCRIT 34.5 % (36.0-47.0); HEMOGLOBIN 12.1 g/dL (12.0-15.5); HGB HCT DIFFERENCE 1.8; LYMPHOCYTES % (AUTO) 29.4 % (13-45); MEAN CORPUSCULAR HEMOGLOBIN 34.2 pg (27.0-33.4); MEAN CORPUSCULAR HGB CONC 35.2 g/dL (32.0-36.0); MEAN CORPUSCULAR VOLUME 97 fl (80-97); MONOCYTES % (AUTO) 7.4 % (3-13); RED BLOOD COUNT 3.55 10^6/uL (3.72-5.28); RED CELL DISTRIBUTION WIDTH 13.1 % (11.5-14.0); SEGMENTED NEUTROPHILS % (AUTO) 62.5 % (42-78); WHITE BLOOD COUNT 5.4 10^3/uL (4.0-10.5)
[2016-07-28 10:44] LABS: ALANINE AMINOTRANSFERASE 23 U/L (9-52); ALBUMIN 3.8 g/dL (3.5-5.0); ALKALINE PHOSPHATASE 110 U/L (38-126); ANION GAP 14 (5-19); ASPARTATE AMINO TRANSFERASE 16 U/L (14-36); BLOOD UREA NITROGEN 6 mg/dL (7-20); CALCIUM 9.7 mg/dL (8.4-10.2); CARBON DIOXIDE 20 mmol/L (22-30); CHLORIDE 102 mmol/L (98-107); CREATININE RESULT 0.54 mg/dL (0.52-1.25); GLUCOSE 115 mg/dL (75-110); LIPASE 66.9 U/L (23-300); POTASSIUM 3.2 mmol/L (3.6-5.0); SODIUM 135.6 mmol/L (137-145); TOTAL PROTEIN 7.7 g/dL (6.3-8.2)
== END 2016-07-28 11:46 | disposition admitted as inpatient to this hospital (09) ==
LOC: ER 08:26
DX: O21.0 Mild hyperemesis gravidarum (principal); R10.9 Unspecified abdominal pain; R11.10 Vomiting, unspecified
CPT/HCPCS: 99284; 96361; 96374; 36415; 83690; 85025; 80053; J2550; J7030

== ENCOUNTER 2016-07-28 12:03 | Outpatient (CLI) | payer MEDICARE, MEDICAID ==
[2016-07-28 13:34] LABS: URINE BARBITURATES SCREEN NEGATIVE; URINE METHADONE SCREEN NEGATIVE; URINE OPIATES LOW NEGATIVE; URINE PHENCYCLIDINE SCREEN NEGATIVE
[2016-07-28 13:40] LABS: APPEARANCE,URINE CLEAR; BILIRUBIN,URINE NEGATIVE (NEGATIVE); GLUCOSE, URINE NEGATIVE (NEGATIVE); KETONES,URINE 80 mg/dL (NEGATIVE); LEUKOCYTE ESTERASE,URINE SMALL (NEGATIVE); NITRITE,URINE NEGATIVE (NEGATIVE); PROTEIN,URINE 30 mg/dL (NEGATIVE); URINE SPECIFIC GRAVITY 1.014
== END 2016-07-28 13:51 | disposition home or self-care (01) ==
LOC: LC 12:03
PROVIDERS: ATTEND Student in an Organized Health Care Education/Training Program
PROC: 4A1HXCZ Monitoring of Products of Conception, Cardiac Rate, External Approach (ICD-10-PCS; principal; 2016-07-28)
DX: Z34.93 Encounter for supervision of normal pregnancy, unspecified, third trimester (principal); Z36 Encounter for antenatal screening of mother; Z3A.33 33 weeks gestation of pregnancy
CPT/HCPCS: 59025 ×2; 99284; 96361; 96374; 36415; 83690; 85025; 81005; 80053; 80307; J2550; J7030

== ENCOUNTER 2016-09-05 06:37 | Inpatient (IN) | payer MEDICARE, MEDICAID ==
[2016-09-05 07:26] LABS: ABSOLUTE MONOCYTES (AUTO) 0.6 10^3/uL (0.1-1.4); ABSOLUTE NEUT (AUTO) 3.2 10^3/uL (1.7-8.2); BASOPHILS % (AUTO) 0.4 % (0-2); EOSINOPHILS % (AUTO) 0.4 % (0-6); HEMATOCRIT 28.4 % (36.0-47.0); HGB HCT DIFFERENCE 1.6; LYMPHOCYTES % (AUTO) 34.6 % (13-45); MEAN CORPUSCULAR HEMOGLOBIN 34.6 pg (27.0-33.4); MEAN CORPUSCULAR HGB CONC 35.1 g/dL (32.0-36.0); MEAN CORPUSCULAR VOLUME 99 fl (80-97); RED BLOOD COUNT 2.88 10^6/uL (3.72-5.28); RED CELL DISTRIBUTION WIDTH 13.5 % (11.5-14.0); SEGMENTED NEUTROPHILS % (AUTO) 54.6 % (42-78); WHITE BLOOD COUNT 5.8 10^3/uL (4.0-10.5)
[2016-09-05] MEDS ORDERED: CEFAZOLIN 1 GM/D5W RTU 1 GM/50 ML RTUPB IV PRN (08:00)
[2016-09-05] MEDS ORDERED: RINGERS SOLUTION,LACTATED 2,000 ML IV PRN (08:00)
[2016-09-05 08:20] LABS: APPEARANCE,URINE SLIGHTLY-CLOUDY; BILIRUBIN,URINE NEGATIVE (NEGATIVE); GLUCOSE, URINE NEGATIVE (NEGATIVE); KETONES,URINE NEGATIVE (NEGATIVE); LEUKOCYTE ESTERASE,URINE MODERATE (NEGATIVE); NITRITE,URINE NEGATIVE (NEGATIVE); PROTEIN,URINE 30 mg/dL (NEGATIVE); URINE SPECIFIC GRAVITY 1.021
[2016-09-05 08:32] LABS: URINE BARBITURATES SCREEN NEGATIVE; URINE METHADONE SCREEN NEGATIVE; URINE OPIATES LOW NEGATIVE; URINE PHENCYCLIDINE SCREEN NEGATIVE
[2016-09-05] MEDS ORDERED: PROPOFOL INJ 200 MG/20 ML VIAL IV ONE (09:05)
[2016-09-05] MEDS ORDERED: FENTANYL CITRATE INJ/PF 100 MCG/2 ML AMPUL ONE (09:05)
[2016-09-05] MEDS ORDERED: OXYTOCIN 10 UNIT/ML VIAL ONE (09:05)
[2016-09-05] MEDS ORDERED: MIDAZOLAM 2 MG/2 ML INJ ONE (09:06)
[2016-09-05] MEDS ORDERED: RINGERS SOLUTION,LACTATED 1,000 ML IV SCH (09:30)
[2016-09-05] MEDS ORDERED: ACETAMINOPHEN 100 ML IV ONE (11:13)
[2016-09-05] MEDS ORDERED: ONDANSETRON HCL INJ/PF 4 MG/2 ML SDV ONE ×3 (11:55→19:16)
[2016-09-05] MEDS ORDERED: ACETAMINOPHEN 100 ML IV PRN (11:58)
[2016-09-05] MEDS ORDERED: SIMETHICONE 80 MG TAB.CHEW PO PRN (11:58)
[2016-09-05] MEDS ORDERED: ACETAMINOPHEN 325 MG TABLET PO PRN (11:58)
[2016-09-05] MEDS ORDERED: PROMETHAZINE HCL INJ 25 MG/1 ML VIAL IV PRN (11:58)
[2016-09-05] MEDS ORDERED: OXYCODONE-ACETAMINOPHEN 5-325 MG TABLET PO PRN (11:58)
[2016-09-05] MEDS ORDERED: MEASLES,MUMPS&RUBELLA VACC/PF 0.5 ML VIAL SUBCUT PRN (11:58)
[2016-09-05] MEDS ORDERED: OXYTOCIN/NORMAL SALINE 1,000 ML IV PRN (11:58)
[2016-09-05] MEDS ORDERED: HYDROMORPHONE HCL INJ/PF 2 MG/ML AMPULE IV PRN (11:58)
[2016-09-05] MEDS ORDERED: DIPH/PERTUSS(ACELL)/TETANUS VAC/PF 0.5 ML SYR (>=10YO) IM PRN (11:58)
[2016-09-05] MEDS ORDERED: HYDROMORPHONE HCL INJ/PF 2 MG/ML AMPULE ONE (12:04)
[2016-09-05] MEDS ORDERED: PRENATAL VITAMIN W-O CA NO5/FE FUMARATE/FA CAPSULE PO ONE (13:00)
[2016-09-05] MEDS ORDERED: DOCUSATE SODIUM 100 MG CAPSULE PO ONE (13:00)
--- NOTE | 2016-09-05 13:58 | Admission Physical ---
Datetime Report Generated by CPN: 09/05/2016 13:57 CURRENT ADMISSION Chief Complaint: Other Chief Complaint Other: Nausea and vomiting Admit Plan- Other: Iv fluids ALLERGIES Medication Allergies: No Medication Allergies: No Known Allergies (07/28/2016) Medication Allergies: No Known Allergies (07/26/2016) Medication Allergies: No Known Allergies (05/09/2016) Medication Allergies: No Known Allergies (08/29/2011) Latex: No Latex Allergies Food Allergies: None Environmental Allergies: None OBSTETRICAL HISTORY EDC: 09/10/2016 00:00 : 6 Para: 2 Para: 2 Para: 2 Term: 2 : 0 SAB: 3 IAB: 0 Ectopic: 0 Livin Cesareans: 2 VBACs: 0 Multiple Births: 0 Gestational Diabetes: No Rh Sensitization: No Incompetent Cervix: No CYNDY: No Infertility: No ART Treatment: No Uterine Anomaly: No IUGR: No Hx Previous C/S: Yes Macrosomia: No Hx Loss/Stillborn: No PIH: No Hx : No Placenta Previa/Abruption: No Depression/PP Depression: No PTL/PROM: No Post Hemorrhage: No Current Procedures: Ultrasound Obstetrical History Comments: 2006- primary 2011- repeat SEE RECORDS Alcohol: No Marijuana : No Cocaine: No Other Illicit Drugs: No Cigarettes: Never Smoker. 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 Surgery: Yes Heart Disease: No Hosp/Surgery: Yes Autoimmune Disorder: No Anesthetic Complications: No Kidney Disease: No Abnormal Pap Smear: No Neuro/Epilepsy: No Psychiatric Disorders: No Other Medical Diseases: No Hepatitis/Liver Disease: No Significant Family History: No Varicosities/Phlebitis: No Trauma/Violence : No Thyroid Dysfunction: No Medical History Comments: 2006 and [id number] INFECTIOUS HISTORY Gonorrhea: Yes Genital Herpes: No Chlamydia: Yes Tuberculosis: No Syphilis: No Hepatitis: No HIV/AIDS Exposure: No Rash or Viral Illness: No HPV: No Infectious History Comments: Hx Of GC/CHLAM/HSV PHYSICAL EXAM General: Normal HEENT: Normal Neurologic: Normal Thyroid: Normal Heart: Normal Lungs: Normal Breast: Deferred Back: Normal Abdomen: Normal Genitourinary Exam: Deferred Extremities: Normal DTRs: Normal Pelvic Type: Not Done Vital Signs: Reviewed FETUS A EGA: 33.1 FHR- Baseline: 140 Variability: Moderate 6-25bpm Accelerations: 15X15 FHR Category: Category I Admit Comment: Admit for iv fluids PLANS FOR LABOR AND DELIVERY Labor and Delivery: None Pain Management: Spinal Feeding Preference: Formula Benefit of Breast Feed Discussed: Yes Circumcision: Yes INFORMED CONSENT Signature: with User ID: [email or web address]
[2016-09-05] MEDS ORDERED: GLUCAGON,HUMAN RECOMB 1 MG INJ IM PRN (14:05)
[2016-09-05] MEDS ORDERED: DEXTROSE 50%-WATER SYRINGE 25 GM/50 ML DOSE IV PRN (14:05)
[2016-09-05] MEDS ORDERED: DEXTROSE 40% GEL 15 GM TUBE PO PRN (14:05)
[2016-09-05] MEDS ORDERED: DEXTROSE 40% GEL 15 GM TUBE X 2 PO PRN (14:05)
[2016-09-05] MEDS ORDERED: DEXTROSE 50%-WATER SYRINGE 12.5 GM/25 ML DOSE IV PRN (14:05)
[2016-09-05] MEDS: KETOROLAC TROMETHAMINE INJ/PF 30 MG/1 ML SDV IV SCH ×2 (14:32→22:34)
[2016-09-05] MEDS: RINGERS SOLUTION,LACTATED 1,000 ML IV PRN (15:58)
[2016-09-05] MEDS ORDERED: INSULIN LISPRO 100 UNIT/ML 3 ML VIAL SUBCUT SCH ×2 (18:00)
[2016-09-05] MEDS: DOCUSATE SODIUM 100 MG CAPSULE PO SCH (18:32)
--- NOTE | 2016-09-05 19:00 | L&D Flow Sheet ---
LD Flowsheet Datetime Report Generated by CPN: 09/05/2016 19:00 Datetime: 09/05/2016 12:34 Pulse: 62 (QS system process) SpO2 (%): 99 (QS system process) Datetime: 09/05/2016 12:32 NBP Sys/Myranda/Mean (mmHg): 145 (QS system process) : 81 (QS system process) : 106 (QS system process) Pulse: 65 (QS system process) Datetime: 09/05/2016 12:30 Stage of : Recovery (Tiffany Marhefka, RN) Datetime: 09/05/2016 12:29 Pulse: 68 (QS system process) SpO2 (%): 98 (QS system process) Datetime: 09/05/2016 12:24 Pulse: 64 (QS system process) SpO2 (%): 99 (QS system process) Datetime: 09/05/2016 12:19 Pulse: 69 (QS system process) SpO2 (%): 100 (QS system process) Datetime: 09/05/2016 12:17 NBP Sys/Myranda/Mean (mmHg): 137 (QS system process) : 91 (QS system process) : 110 (QS system process) Pulse: 74 (QS system process) Datetime: 09/05/2016 12:15 Stage of : Recovery (Tiffany Gutierrez RN) Pain Scale: 2 (Tiffany Gutierrez RN) Pain Presence: Intermittent (Tiffany Gutierrez RN) Pain Type: Ache (Tiffany Marhefka, RN) Pain Location: Abdomen (Tiffany Stevenfka, RN) Pain Goal: 0 (Tiffany Marhefka, RN) Pain Relief Measures: Comfort Measures (Tiffany Stevenfka, RN) Datetime: 09/05/2016 12:14 Pulse: 67 (QS system process) SpO2 (%): 99 (QS system process) Datetime: 09/05/2016 12:09 Pulse: 69 (QS system process) SpO2 (%): 98 (QS system process) Datetime: 09/05/2016 12:04 Pulse: 74 (QS system process) SpO2 (%): 100 (QS system process) Datetime: 09/05/2016 12:02 NBP Sys/Myranda/Mean (mmHg): 147 (QS system process) : 89 (QS system process) : 113 (QS system process) Pulse: 78 (QS system process) Datetime: 09/05/2016 12:00 Stage of : Recovery (Tiffany Gutierrez RN) Pain Scale: 4 (Tiffany Gutierrez RN) Pain Presence: Intermittent (Tiffany Gutierrez RN) Pain Type: Ache (Tiffany Gutierrez RN) Pain Location: Abdomen (Tiffany Gutierrez RN) Pain Goal: 0 (Tiffany Gutierrez RN) Pain Relief Measures: Comfort Measures (Annotations: RN preparing pain medication ) (Tiffany Gutierrez RN) Datetime: 09/05/2016 11:59 Pulse: 72 (QS system process) SpO2 (%): 100 (QS system process) Datetime: 09/05/2016 11:54 Pulse: 84 (QS system process) SpO2 (%): 100 (QS system process) Datetime: 09/05/2016 11:49 Pulse: 77 (QS system process) SpO2 (%): 100 (QS system process) Datetime: 09/05/2016 11:48 NBP Sys/Myranda/Mean (mmHg): 148 (QS system process) : 82 (QS system process) : 110 (QS system process) Pulse: 68 (QS system process) Datetime: 09/05/2016 11:45 Pain Scale: 5 (Tiffany Marhefka, RN) Pain Presence: Intermittent (Tiffany Marhefka, RN) Pain Type: Ache (Tiffany Marhefka, RN) Pain Location: Abdomen (Tiffany Marhefka, RN) Pain Goal: 0 (Tiffany Marhefka, RN) Pain Relief Measures: Comfort Measures (Tiffany Marhefka, RN) Datetime: 09/05/2016 11:44 Pulse: 67 (QS system process) SpO2 (%): 100 (QS system process) Datetime: 09/05/2016 11:39 Pulse: 71 (QS system process) SpO2 (%): 98 (QS system process) Datetime: 09/05/2016 11:38 Pulse: 70 (QS system process) SpO2 (%): 92 (QS system process) Datetime: 09/05/2016 11:33 NBP Sys/Myranda/Mean (mmHg): 142 (QS system process) : 86 (QS system process) : 110 (QS system process) Pulse: 76 (QS system process) Pulse: 67 (QS system process) SpO2 (%): 100 (QS system process) Datetime: 09/05/2016 11:30 Stage of : Recovery (Tiffany Gutierrez RN) Pain Scale: 3 (Tiffany Gutierrez RN) Pain Presence: Intermittent (Annotations: Pt sleeping in between fundal rubs) (Tiffany Gutierrez RN) Pain Type: Ache (Tiffany Gutierrez RN) Pain Location: Abdomen (Tiffany Gutierrez RN) Pain Goal: 0 (Tiffany Gutierrez RN) Pain Relief Measures: Comfort Measures (Tiffany Gutierrez RN) Datetime: 09/05/2016 11:28 Pulse: 78 (QS system process) SpO2 (%): 100 (QS system process) Datetime: 09/05/2016 11:23 Pulse: 64 (QS system process) SpO2 (%): 96 (QS system process) Datetime: 09/05/2016 11:18 Pulse: 72 (QS system process) SpO2 (%): 100 (QS system process) Datetime: 09/05/2016 11:17 NBP Sys/Myranda/Mean (mmHg): 135 (QS system process) : 83 (QS system process) : 105 (QS system process) Pulse: 65 (QS system process) Datetime: 09/05/2016 11:15 Pain Scale: 5 (Tfifany Gutierrez, RN) Pain Presence: Constant (Tiffany Harrissean, RN) Pain Type: Ache (Tiffany Harrissean, RN) Pain Location: Abdomen (Tiffany Harrissean, RN) Pain Goal: 0 (Tiffany Harrissean, RN) Pain Relief Measures: Pain Medication Given; Comfort Measures (Tiffany Harrissean ) Datetime: 09/05/2016 11:13 Pulse: 73 (QS system process) SpO2 (%): 100 (QS system process) Datetime: 09/05/2016 11:08 Pulse: 72 (QS system process) SpO2 (%): 100 (QS system process) Datetime: 09/05/2016 11:03 Pulse: 70 (QS system process) SpO2 (%): 100 (QS system process) Datetime: 09/05/2016 11:00 Stage of : Recovery (Tiffany Gutierrez RN) NBP Sys/Myranda/Mean (mmHg): 124 (QS system process) : 75 (QS system process) : 95 (QS system process) Pulse: 72 (QS system process) Respirations: 16 (Tiffany Gutierrez RN) Pain Scale: 3 (Tiffany Gutierrez RN) Pain Presence: Constant (Tiffany Gutierrez RN) Pain Type: Ache (Tiffany Gutierrez RN) Pain Location: Abdomen (Tiffany Gutierrez RN) Pain Goal: 0 (Tiffany Gutierrez RN) Pain Relief Measures: Comfort Measures (Tiffany Gutierrez RN) Datetime: 09/05/2016 10:58 Pulse: 71 (QS system process) SpO2 (%): 100 (QS system process) Datetime: 09/05/2016 10:55 NBP Sys/Myranda/Mean (mmHg): 119 (QS system process) : 74 (QS system process) : 89 (QS system process) Pulse: 76 (QS system process) Datetime: 09/05/2016 10:53 Pulse: 81 (QS system process) SpO2 (%): 100 (QS system process) Datetime: 09/05/2016 10:51 NBP Sys/Myranda/Mean (mmHg): 116 (QS system process) : 65 (QS system process) : 82 (QS system process) Pulse: 77 (QS system process) Datetime: 09/05/2016 10:48 Pulse: 71 (QS system process) SpO2 (%): 99 (QS system process) Datetime: 09/05/2016 10:45 Stage of : Recovery (Tiffany Gutierrez RN) NBP Sys/Myranda/Mean (mmHg): 118 (QS system process) : 69 (QS system process) : 86 (QS system process) Pulse: 70 (QS system process) Respirations: 16 (Tiffany Gutierrez RN) Temperature (F): 97.5 (Tiffany Gutierrez RN) Temperature (C): 36.4 (QS system process) Temperature Route: Oral (Tiffany Gutierrez RN) Pain Scale: 1 (Tiffany Gutierrez RN) Pain Presence: Intermittent (Tiffany Gutierrez RN) Pain Type: Cramping (Tiffany Gutierrez RN) Pain Location: Abdomen (Tiffany Gutierrez RN) Pain Goal: 0 (Tiffany Gutierrez RN) Pain Relief Measures: Comfort Measures (Tiffany Gutierrez RN) Datetime: 09/05/2016 10:43 Pulse: 74 (QS system process) SpO2 (%): 98 (QS system process) Datetime: 09/05/2016 10:42 Stage of : Recovery (Tiffany Gutierrez RN) Datetime: 09/05/2016 07:33 Bedside Blood Glucose: 102 (QS system process) LaborFlag: Antepartum (QS system process)
[2016-09-05] MEDS ORDERED: PHENYLEPHRINE HCL INJ/PF 10 MG/1 ML SDV ONE (19:16)
[2016-09-05] MEDS ORDERED: LIDOCAINE 2% INJ-PF (20 MG/ML) 10 ML AMPUL ONE (19:16)
[2016-09-05] MEDS ORDERED: INSULIN LISPRO 100 UNIT/ML 3 ML VIAL SUBCUT PRN (20:24)
[2016-09-05] MEDS: INSULIN LISPRO 100 UNIT/ML 3 ML VIAL SUBCUT PRN (21:06)
[2016-09-05] MEDS ORDERED: INSULIN DETEMIR 100 UNIT/ML 3 ML PEN SUBCUT SCH (22:00)
[2016-09-06] MEDS: RINGERS SOLUTION,LACTATED 1,000 ML IV PRN (00:34)
--- NOTE | 2016-09-06 06:01 | L&D Current Admission ---
Current Admit Datetime Report Generated by CPN: 09/06/2016 06:00 ADMISSION INFORMATION Current Admit Date/Time: 07/24/2016 05:42 (07/24/2016 05:42:Jodi Reid RN) Reason for Admission: Other (07/24/2016 05:42:Jodi Reid RN) Other Reason for Admission: observation pt. for vomiting (07/24/2016 05:42:Jodi Reid RN) Chief Complaint: Nausea; Vomiting; Other (Annotations: Abdominal pain) (07/28/2016 12:21:Alison Thakkar RN) EGA per Dates: 33.1 (07/24/2016 05:42:QS system process) Method of Arrival: Wheelchair (07/24/2016 05:42:Jodi Reid RN) Admitted From: Home (07/24/2016 05:42:Jodi Reid RN) Reason for Induction: Not Applicable (07/24/2016 05:42:Jodi Reid RN) Records Available: Yes (07/24/2016 05:42:Jodi Reid RN) General Admission Information: Reviewed (07/24/2016 05:42:Jodi Reid RN) LEARNING ASSESSMENT Knowledge Level: Understands L_D Process; Understands Care Activities; Understands Diagnosis (07/24/2016 05:42:Jodi Reid RN) Barriers to Learning: None (07/24/2016 05:42:Jodi Reid RN) Learning Readiness: Motivated (07/24/2016 05:42:Jodi Reid RN) Learns Best By: 1 to 1 Instruction (07/24/2016 05:42:Jodi Reid RN) Learning Needs: Labor and Delivery Process; Pain Management; Symptoms to Report; Treatment Plan; Medication; Diagnosis; Nutrition; Equipment; Care; Community Resources (07/24/2016 05:42:Jodi Reid RN) DOMESTIC VIOLANCE SCREENING Dom Viol Threatened/Hurt: No (07/24/2016 05:42:Jodi Reid RN) Hx of Abuse/Neglect past 2yrs: No (07/24/2016 05:42:Jodi Reid RN) Feel Unsafe Going Home: No (07/24/2016 05:42:Jodi Reid RN) Addt'l Observ Indicating Abuse: No (07/24/2016 05:42:Jodi Reid RN) Reason Unable to Complete Screen: N/A, Screen Completed (07/24/2016 05:42:Jodi Reid RN) Considered Personal Harm/Suicide: No (07/24/2016 05:42:Jodi Reid RN) NUTRITIONAL/FUNCTIONAL SCREENING Problem with Appetite >5 Days: No (07/24/2016 05:42:Jodi Reid RN) Chew/Swallow Difficulties: No (07/24/2016 05:42:Jodi Reid RN) Inappropriate Wt Gain/Loss: No (07/24/2016 05:42:Jodi Redi RN) Presence Skin Breakdown/Ulcer: No (07/24/2016 05:42:Jodi Reid RN) Special Diet: Yes (07/24/2016 05:42:Jodi Reid RN) Specify Diet: liquid diet-vomiting (07/24/2016 05:42:Jodi Reid RN) Pt Requests Wood Machinist Visit: No (07/24/2016 05:42:Jodi Reid RN) Hx of Any of the Following?: N/A (07/24/2016 05:42:Jodi Reid RN) New Diagnosis of: N/A (07/24/2016 05:42:Jodi Reid RN) Requires Assist w/Ambulation: No (07/24/2016 05:42:Jodi Reid RN) Uses Assist Device to Ambulate: No (07/24/2016 05:42:Jodi Reid RN) Pt Requires Help w/ADL's: Donya (07/24/2016 05:42:Jodi Reid RN)
--- NOTE | 2016-09-06 06:01 | L&D General Admission ---
General Admit Datetime Report Generated by CPN: 09/06/2016 06:00 INFORMATION Patient Age: 30 (03/01/2016 20:11:QS system process) EDC: 09/10/2016 00:00 (05/13/2016 11:27:MITCH Luz) : 6 (05/13/2016 11:27:MITCH Luz) Para: 2 (07/26/2016 17:36:Alexa Lechuga RN) Term: 2 (05/13/2016 11:27:MITCH Luz) : 0 (05/13/2016 11:27:MITCH Luz) Spontaneous Abortions: 3 (05/13/2016 11:27:MITCH Luz) Induced Abortions: 0 (05/13/2016 11:27:MITCH Luz) Livin (05/13/2016 11:27:MITCH Luz) Cesareans: 2 (05/13/2016 11:27:Jasmin Bellavance, RNC) VBACs: 0 (05/13/2016 11:27:Jasmin Bellavance, RNC) Ectopic: 0 (05/13/2016 11:27:Jasmin Bellavance, RNC) Multiple Births: 0 (05/13/2016 11:27:Jasmin Bellavance, RNC) Baby, Number in Womb: 1 (07/26/2016 17:36:Alexa Lechuga RN) CARE Primary Drafter Engineering: [facility] (05/13/2016 11:27:Jasmin Ascencione, RNC) Month of 1st Visit: january (05/13/2016 11:27:Jasmin Vegase, RNC) Adequate Care: No (05/13/2016 11:27:Jasmin Bellavance, RNC) Prepregnancy Weight (lb): 165 (05/13/2016 11:27:Jasmin Bellavance, RNC) Prepregnancy Weight (kg): 75.0 (05/13/2016 11:27:QS system process) Height (in): 64 (09/05/2016 14:05:QS system process) ALLERGIES Medication Allergy: No (05/13/2016 11:27:MITCH Luz) Medication Allergies: No Known Allergies (07/28/2016) (07/28/2016 12:04:QS system process) Latex Allergy: No Latex Allergies (05/13/2016 11:27:MITCH Luz) Food Allergies: None (05/13/2016 11:27:Alexa Lechuga RN) Environmental Allergies: None (05/13/2016 11:27:Alexa Lechuga RN) COMMUNICATION Primary Language: Greenlandic (05/13/2016 11:27:Jodi Reid RN) Communication Barrier(s): None (05/13/2016 11:27:Jodi Reid RN) DEMOGRAPHICS Address: [address] [place] [id number] (09/05/2016 06:37:QS system process) Zipcode: [phone] (03/01/2016 20:11:QS system process) Home (07/23/2016 22:14:QS system process) N: [id number] (03/01/2016 20:11:QS system process) Next of Kin Name: DAISY LUCIANO (03/17/2016 14:16:QS system process) Next of Kin (03/17/2016 14:16:QS system process) Next of Kin Relationship: SPO (03/17/2016 14:16:QS system process) Date of : 1985 (03/01/2016 20:11:QS system process) Marital Status: (03/17/2016 14:16:QS system process) Sex: Female (03/01/2016 20:11:QS system process) Race: (03/01/2016 20:11:QS system process) Ethnicity: Non- or (03/01/2016 20:11:QS system process) Baptist: Southern Christianity (03/01/2016 20:11:QS system process) DRUG AND ALCOHOL USE Alcohol: No (05/13/2016 11:27:Jodi Reid RN) Cigarettes: Never Smoker. [id number] (05/13/2016 11:27:Jodi Reid RN) Marijuana: No (05/13/2016 11:27:Jodi Reid RN) Cocaine: No (05/13/2016 11:27:Jodi Reid RN) Other Illicit Drugs: No (05/13/2016 11:27:Jodi Reid RN) VACCINE HISTORY Influenza Vaccine: No (05/13/2016 11:27:Jodi Reid RN) Ticket Clerk: [facility] (05/13/2016 11:27:Jodi Reid RN) Feeding Preference: Formula (05/13/2016 11:27:Jodi Reid RN) Benefit of Breast Feed Discussed: Yes (05/13/2016 11:27:Jodi Reid RN) Circumcision: Yes (05/13/2016 11:27:Jodi Reid RN) Classes Attended: No (05/13/2016 11:27:Jodi Reid RN) Tubal Ligation: No (Annotations: Data stored by [facility] on behalf of user) (05/13/2016 11:27:Jodi Reid RN) Tubal Authorization Signed: N/A (05/13/2016 11:27:Jodi Reid RN) Consent: N/A (05/13/2016 11:27:Jodi Reid RN) Pain Management Plans: Spinal (05/13/2016 11:27:MITCH uLz) Plans for Labor and Delivery: None (05/13/2016 11:27:MITCH Luz) Support Person: Shmuel (05/13/2016 11:27:Jodi Reid RN) Support Person Relationship: (05/13/2016 11:27:Jodi Reid RN) Cultural/Spritual Practice: No (05/13/2016 11:27:Jodi Reid RN) Spir/Cult Dietary Needs: No (05/13/2016 11:27:Jodi Reid RN) LIVING SITUATION/DISCHARGE PLAN Living Arrangements: Apartment (05/13/2016 11:27:Jodi Reid RN) Adequate Access to:: Electric; Heat; Refrigeration; Plumbing/Running water; Phone; Transportation (05/13/2016 11:27:Jodi Reid RN) WIC Program: Yes (05/13/2016 11:27:Jodi Reid RN) Discharge Bilingual Customer Service Specialist Person: (05/13/2016 11:27:Jodi Reid RN) Person to Help after Discharge: (05/13/2016 11:27:Jodi Reid RN) Currently Using Commun Resources: Yes (05/13/2016 11:27:Jodi Reid RN) Specify Current Resource Used: WIC (05/13/2016 11:27:Jodi Reid RN) Outside Agency/Lawn Mower Operator: No (05/13/2016 11:27:Jodi Reid RN) Car Seat for Discharge: Yes (05/13/2016 11:27:Jodi Reid RN) Adoption Requested: No (05/13/2016 11:27:Jodi Reid, RN) LABS Blood Type: O Positive (05/13/2016 11:27:Jasmin Maguire RNC) Hemoglobin: 10.0 L (09/05/2016 07:12:QS system process) Hematocrit: 28.4 L (09/05/2016 07:12:QS system process) MCV: 99 H (09/05/2016 07:12:QS system process) Gonorrhea: Negative (05/13/2016 11:27:Jasmin Maguire RNC) Chlamydia: Negative (05/13/2016 11:27:Jasmin Maguire RNC) RPR/VDRL: Nonreactive (05/13/2016 11:27:Jasmin Maguire RNC) HIV Results: NEGATIVE (07/21/2016 17:00:QS system process) Rubella: Immune (05/13/2016 11:27:Jasmin Maguire RNC) HgB A1c: 5.0 (05/13/2016 12:28:QS system process) OB/PREVIOUS HISTORY Previous Procedures: Ultrasound (05/13/2016 11:27:Jodi Reid RN) Current Procedures: Ultrasound (05/13/2016 11:27:Jodi Reid RN) History of Previous : Yes (05/13/2016 11:27:Alexa Lechuga RN) History of Gestational Diabetes: No (05/13/2016 11:27:Jodi Reid RN) History of PIH: No (05/13/2016 11:27:Jodi Reid RN) History of Incompetent Cervix: No (05/13/2016 11:27:Jodi Reid RN) History of Placenta Previa/Abrup: No (05/13/2016 11:27:Jodi Reid RN) History of Macrosomia: No (05/13/2016 11:27:Jodi Reid RN) History of IUGR: No (05/13/2016 11:27:Jodi Reid RN) History of Hemorrhage: No (05/13/2016 11:27:Jodi Reid RN) History of Loss/Stillborn: No (05/13/2016 11:27:Jodi Reid RN) History of : No (05/13/2016 11:27:Jodi Reid RN) History of D (Rh) Sensitization: No (05/13/2016 11:27:Jodi Reid RN) History Recurrent Loss/Stillborn: No (05/13/2016 11:27:Jodi Reid RN) History Depression/PP Depression: No (05/13/2016 11:27:Jodi Reid RN) History of Uterine Anomaly/CYNDY: No (05/13/2016 11:27:Jodi Reid RN) History of Infertility: No (05/13/2016 11:27:Jodi Reid RN) History of ART Treatment: No (05/13/2016 11:27:Jodi Reid RN) History of CYNDY: No (05/13/2016 11:27:Jodi Reid RN) Comments Obstetrical History: 2007- primary 2011- repeat (05/13/2016 11:27:Jodi Reid RN) MEDICAL HISTORY Med Hx Diabetes: Yes (05/13/2016 11:27:Jodi Reid RN) Diabetes Type: Type II - NIDDM (05/13/2016 11:27:Jodi Reid RN) Med Hx Hypertension: Yes (05/13/2016 11:27:Jodi Reid RN) Med Hx Heart Disease: No (05/13/2016 11:27:Jodi Reid RN) Med Hx Autoimmune Disorder: No (05/13/2016 11:27:Jodi Reid RN) Med Hx Kidney Disease/UTI: No (05/13/2016 11:27:Jodi Reid RN) Med Hx Neurologic/Epilepsy: No (05/13/2016 11:27:Jodi Reid RN) Med Hx Psychiatric Disorders: No (05/13/2016 11:27:Jodi Reid RN) Med Hx Hepatitis/Liver Disease: No (05/13/2016 11:27:Jodi Reid RN) Med Hx Varicosities/Phlebitis: No (05/13/2016 11:27:Jodi Reid RN) Med Hx Thyroid Dysfunction: No (05/13/2016 11:27:Jodi Reid RN) Med Hx Trauma/Violence: No (05/13/2016 11:27:Jodi Reid RN) Med Hx Blood Transfusion: No (05/13/2016 11:27:Jodi Reid RN) Med Hx Pulmonary (Asthma,TB): No (05/13/2016 11:27:Jodi Reid RN) Med Hx Breast: No (05/13/2016 11:27:Jodi Reid RN) Med Hx VP OF MARKETING Surgery: Yes (05/13/2016 11:27:Jodi Reid RN) Med Hx Hospitalization/Surgery: Yes (05/13/2016 11:27:Jodi Reid RN) Med Hx Anesthetic Complications: No (05/13/2016 11:27:Jodi Reid RN) Med Hx Abnormal Pap Smear: No (05/13/2016 11:27:Jodi Reid RN) Other Medical Diseases: No (05/13/2016 11:27:Jodi Reid RN) Med Hx Significant Family Hx: No (05/13/2016 11:27:Jodi Reid RN) Details of Med/Surg Hx: 2006 and [id number] (05/13/2016 11:27:Jodi Reid RN) INFECTIOUS HISTORY Inf Hx Gonorrhea: Yes (05/13/2016 11:27:MITCH Luz) Inf Hx Chlamydia: Yes (05/13/2016 11:27:MITCH Luz) Inf Hx Syphilis: No (05/13/2016 11:27:Jodi Reid RN) Inf Hx HIV/AIDS: No (05/13/2016 11:27:Jodi Reid RN) Inf Hx Human Papilloma Virus: No (05/13/2016 11:27:Jodi Reid RN) Inf Hx Pt/Partner Genital Herpes: No (05/13/2016 11:27:Jodi Reid RN) Inf Hx Tuberculosis/Exposure: No (05/13/2016 11:27:Jodi Reid RN) Inf Hx Hepatitis B,C: No (05/13/2016 11:27:Jodi Reid RN) Inf Hx Rash or Viral Illness: No (05/13/2016 11:27:Jodi Reid RN) Details of Infectious Hx: Hx Of GC/CHLAM/HSV (05/13/2016 11:27:MITCH Luz) GENETIC HISTORY Gen Hx Age >=35 at ITZEL: No (05/13/2016 11:27:Jodi Reid RN) Gen Hx Thalassemia: No (05/13/2016 11:27:Jodi Reid RN) Gen Hx Congenital Heart Defect: No (05/13/2016 11:27:Jodi Reid RN) Gen Hx Neural Tube Defect: No (05/13/2016 11:27:Jodi Reid RN) Gen Hx Down's Syndrome: No (05/13/2016 11:27:Jodi Reid RN) Gen Hx Puneet-Sachs: No (05/13/2016 11:27:Jodi Reid RN) Gen Hx Gabby: No (05/13/2016 11:27:Jodi Reid RN) Gen Hx Familial Dysautonomia: No (05/13/2016 11:27:Jodi Reid RN) Gen Hx Sickle Cell Disease/Trait: No (05/13/2016 11:27:Jodi Reid RN) Gen Hx Hemophilia/Blood Disorder: No (05/13/2016 11:27:Jodi Reid RN) Gen Hx Muscular Dystrophy: No (05/13/2016 11:27:Jodi Reid RN) Gen Hx Cystic Fibrosis: No (05/13/2016 11:27:Jodi Reid RN) Gen Hx Huntingtons Chorea: No (05/13/2016 11:27:Jodi Reid RN) Gen Hx Mental Retardation/Autism: No (05/13/2016 11:27:Jodi Reid RN) Gen Hx Tested for Fragile X: No (05/13/2016 11:27:Jodi Reid RN) Gen Hx Other Inher/Chromosomal: No (05/13/2016 11:27:Jodi Reid RN) Gen Hx Maternal Metabolic DO: No (05/13/2016 11:27:Jodi Reid RN) Gen Hx Pt Father or FOB Defect: No (05/13/2016 11:27:Jodi Reid RN) Gen Hx Other Genetic History: No (05/13/2016 11:27:Jodi Reid RN) Gen Hx Drugs/Meds since LMP: No (05/13/2016 11:27:Jodi Reid RN)
[2016-09-06 06:26] LABS: HEMATOCRIT 25.6 % (36.0-47.0); HEMOGLOBIN 9.2 g/dL (12.0-15.5); MEAN CORPUSCULAR HEMOGLOBIN 34.9 pg (27.0-33.4); MEAN CORPUSCULAR HGB CONC 35.9 g/dL (32.0-36.0); MEAN CORPUSCULAR VOLUME 97 fl (80-97); RED BLOOD COUNT 2.63 10^6/uL (3.72-5.28); RED CELL DISTRIBUTION WIDTH 13.5 % (11.5-14.0)
[2016-09-06] MEDS: KETOROLAC TROMETHAMINE INJ/PF 30 MG/1 ML SDV IV SCH (06:47)
[2016-09-06] MEDS: OXYCODONE-ACETAMINOPHEN 5-325 MG TABLET PO PRN ×2 (06:48→19:05)
[2016-09-06] MEDS ORDERED: INSULIN LISPRO 100 UNIT/ML 3 ML VIAL SUBCUT SCH (08:00)
[2016-09-06] MEDS: PRENATAL VITAMIN W-O CA NO5/FE FUMARATE/FA CAPSULE PO SCH (10:02)
[2016-09-06] MEDS: DOCUSATE SODIUM 100 MG CAPSULE PO SCH ×2 (10:02→17:36)
[2016-09-06] MEDS: INSULIN LISPRO 100 UNIT/ML 3 ML VIAL SUBCUT PRN ×2 (11:24→15:54)
--- NOTE | 2016-09-06 11:25 | PDOC PROGRESS REPORT ---
Subjective-OB Subjective: Post Delivery Day: 30 year old. Denies any needs at this time. Pt doing well, ambulatory, reports light bleeding, regular diet and voiding well. No complaints. Physical Exam (OB) Vital Signs: Temp Pulse Resp BP Pulse Ox 98.3 F 86 16 122/71 98 09/06/16 07:43 09/06/16 07:43 09/06/16 07:43 09/06/16 07:43 09/06/16 07:43 Intake & Output 09/05/16 09/06/16 09/07/16 06:59 06:59 06:59 Intake Total 500 Output Total 1430 Balance -930 Weight 81.647 kg - Dressing Removed: Yes Incision: Open - Lochia Lochia Amount: Scant < 10 ml Lochia Color: Rubra/Red - Abdomen Description: Tender, Soft Hernia Present: No Fundal Description: Firm, Midline Fundal Height: u/u - u/2 Objective-Diagnostic Laboratory: 09/06/16 06:14 09/06/16 06:14 WBC 8.0 RBC 2.63 L Hgb 9.2 L Hct 25.6 L MCV 97 MCH 34.9 H MCHC 35.9 RDW 13.5 Plt Count 197 Assessment and Plan(PN) - Assessment and Plan (1) delivery delivered Is this a current diagnosis for this admission?: Yes (2) Diabetes Qualifiers: Diabetes mellitus type: type 2 Diabetes mellitus complication status: without complication Diabetes mellitus termite control service representative insulin use: unspecified snf insulin use status Qualified Code(s): E11.9 - Type 2 diabetes mellitus without complications Is this a current diagnosis for this admission?: Yes - Time Spent with Patient Time with patient: Less than 15 minutes Medications reviewed and adjusted accordingly: Yes - Disposition Anticipated Discharge: Home Within: within 24 hours
[2016-09-06] MEDS: IBUPROFEN 800 MG TABLET PO SCH ×2 (12:47→17:36)
[2016-09-07] MEDS: IBUPROFEN 800 MG TABLET PO SCH ×5 (00:09→23:52)
[2016-09-07] MEDS: OXYCODONE-ACETAMINOPHEN 5-325 MG TABLET PO PRN ×2 (09:03→23:53)
[2016-09-07] MEDS: DOCUSATE SODIUM 100 MG CAPSULE PO SCH ×2 (09:03→17:00)
[2016-09-07] MEDS: PRENATAL VITAMIN W-O CA NO5/FE FUMARATE/FA CAPSULE PO SCH (09:04)
[2016-09-07] MEDS: INSULIN LISPRO 100 UNIT/ML 3 ML VIAL SUBCUT PRN ×2 (09:53→16:58)
--- NOTE | 2016-09-07 11:12 | PDOC PROGRESS REPORT ---
Subjective-OB Subjective: Post Delivery Day: 30 year old. Denies any needs at this time. Pt doing well, resting. She has been ambulatory, reports light bleeing, regular diet and voiding without difficulty. Baby is not being discharged today. Physical Exam (OB) Vital Signs: Temp Pulse Resp BP Pulse Ox 98.1 F 88 16 119/65 98 09/07/16 08:06 09/07/16 08:06 09/07/16 08:06 09/07/16 08:06 09/07/16 08:06 Intake & Output 09/06/16 09/07/16 09/08/16 06:59 06:59 06:59 Intake Total 500 240 Output Total 1430 Balance -930 240 Weight 81.647 kg - Dressing Removed: Yes Incision: Well Approximated Closure Type: Surgical Glue - Lochia Lochia Amount: Scant < 10 ml Lochia Color: Rubra/Red - Abdomen Description: Tender, Soft, Round Hernia Present: No Fundal Description: Firm, Midline Fundal Height: u/u - u/2 Objective-Diagnostic Laboratory: 09/06/16 06:14 Assessment and Plan(PN) - Assessment and Plan (1) delivery delivered Is this a current diagnosis for this admission?: Yes (2) Diabetes Qualifiers: Diabetes mellitus type: type 2 Diabetes mellitus complication status: without complication Diabetes mellitus manager long term care insulin use: unspecified manager long term care insulin use status Qualified Code(s): E11.9 - Type 2 diabetes mellitus without complications Is this a current diagnosis for this admission?: Yes - Time Spent with Patient Time with patient: Less than 15 minutes Medications reviewed and adjusted accordingly: Yes - Disposition Anticipated Discharge: Home Within: within 24 hours
[2016-09-08] MEDS: IBUPROFEN 800 MG TABLET PO SCH (06:38)
[2016-09-08 08:23] VITALS: BP 131/85
[2016-09-08] MEDS: PRENATAL VITAMIN W-O CA NO5/FE FUMARATE/FA CAPSULE PO SCH (09:33)
[2016-09-08] MEDS: DOCUSATE SODIUM 100 MG CAPSULE PO SCH (09:33)
--- NOTE | 2016-09-08 10:06 | PDOC DISCHARGE SUMMARY ---
Final Diagnosis Discharge Date: 09/08/16 - Final Diagnosis (1) delivery delivered Is this a current diagnosis for this admission?: Yes (2) Diabetes Is this a current diagnosis for this admission?: Yes Discharge Data - Discharge Medication Home Medications: Ibuprofen [Motrin 800 mg Tablet] 800 mg PO Q6 #30 tablet 09/08/16 Oxycodone HCl/Acetaminophen [Percocet 5-325 mg Tablet] 1 tab PO Q4HP PRN #30 tablet 09/08/16 Gestational Age: 39 weeks Reason(s) for Admission: Ceasarean Section-Repeat Admission Note: She was admitted and underwent a repeat C section. She did well post op. Procedure(s) Note: Diabetes treated with levimir. Intrapartum Procedure(s): : Low Cervical, Transverse - Diagnosis Test Laboratory: Temp Pulse Resp BP Pulse Ox 98.1 F 83 18 131/85 H 100 09/08/16 08:21 09/08/16 08:21 09/08/16 08:21 09/08/16 08:21 09/08/16 08:21 09/05/16 09/05/16 09/06/16 07:12 08:05 06:14 RBC 2.88 L 2.63 L Hgb 10.0 L 9.2 L Hct 28.4 L 25.6 L Urine Opiates Screen NEGATIVE - Discharge information/Instructions Discharge Activity: Activity As Tolerated, No Driving, No Lifting Over 10 Pounds , No Lifting/Push/Pulling, Pelvic Rest, No tub bath Discharge Diet: Diabetic Disposition: HOME, SELF-CARE Follow up with: [facility] in: 1
--- NOTE | 2016-10-21 11:15 | Operative Report ---
Operative Report DATE OF SURGERY: 09/05/16 PREOPERATIVE DIAGNOSIS: 39 week ,Type 1 DM, Previous section POSTOPERATIVE DIAGNOSIS: same, delivered OPERATION: Repeat Low Transverse Section SURGEON: YESICA CHAVEZ ANESTHESIA: Spinal TISSUE REMOVED OR ALTERED: placenta COMPLICATIONS: none ESTIMATED BLOOD LOSS: 500cc INTRAOPERATIVE FINDINGS: viable male weight [id number], apgars 8/9. intact placenta 3vc. normal uterus ovaries and tubes PROCEDURE: After appropriate consents had been obtained, the patient was taken to the operating room where regional anesthesia was placed without difficulty. The patient was prepped and draped in the normal sterile fashion in the dorsal supine position with a leftward tilt. Time out procedure was performed. Anesthesia was determined to be adequate and a pfannenstiel incision was made through the prior scar. The fascia was nicked in the midline then extended bilaterally with Brannon scissors. The fascia was elevated and then the rectus muscles dissected off sharply. The rectus muscles were then in the midline and the peritonuem identified. The peritoneum was entered sharply and extended with good visualization of the bladder. Bladder blade was inserted and the bladder flap carefully dissected off the lower uterine segment. A transverse incision was made with the scalpel then extended bilaterally in an upward outward motion across the lower uterine segment. Amniotomy revealed clear fluid. The vertex was grasped and elevated easily through the incision followed by the remainder of the infant. The cord was doubly clamped and ligated. The was handed off the operative field to the waiting pediatric team. The placenta was then extracted manually intact. The uterus was exteriorized and cleansed of membranous tissue with a sponge on the crowning hammer operator's hand. The uterine incision was then repaired using 0 vicryl in a running locked fashion. A second layer of the same suture was used to imbricate for hemastasis. The uterus was then returned to the abdomen and gutters were cleared of clots and debris. The fascial incision was closed with 0 vicryl in a running fashion to the midline. The subcutaneous layer was closed with 0 plain in a running stitch. the skin was closed with 4-0 monocryl in subcuticular running stitch. Sponge, lap and needle counts were correct. The patient was transferred to recovery in stable condition.
== END 2016-09-08 12:15 | disposition home or self-care (01) | DRG 765 ==
LOC: 2S 06:37
PROVIDERS: ADMIT Obstetrics & Gynecology; ATTEND Obstetrics & Gynecology
PROC: 10D00Z1 Extraction of Products of Conception, Low, Open Approach (ICD-10-PCS; principal; 2016-09-05 09:15)
DX: O34.211 Maternal care for low transverse scar from previous cesarean delivery (principal); O24.02 Pre-existing type 1 diabetes mellitus, in childbirth; E10.9 Type 1 diabetes mellitus without complications; N85.8 Other specified noninflammatory disorders of uterus; Z3A.39 39 weeks gestation of pregnancy; Z37.0 Single live birth; Z79.4 Long term (current) use of insulin
CPT/HCPCS: 1961; 36415; 59025; 80307; 81001; 82962; 85025; 85027; 86850; 86900; 86901; 88307; 94799; J0131; J1170; J1815; J1885; J2250; J2370; J2405; J2590; J2704; J3010; J3490; J7120

== ENCOUNTER 2017-06-01 08:47 | Emergency (ER) | payer MEDICARE, MEDICAID ==
[2017-06-01 08:59] VITALS: BP 130/81
[2017-06-01] MEDS ORDERED: LIDOCAINE 1% INJ-PF (10 MG/ML) 30 ML SDV INJ ONE (09:14)
[2017-06-01] MEDS ORDERED: CEPHALEXIN 500 MG CAPSULE PO ONE (09:16)
--- NOTE | 2017-06-01 09:42 | ER Document Report ---
ED Skin Rash/Insect Bite/Abscs - General Chief Complaint: Finger Injury Stated Complaint: FINGER SWELLNG AND PAIN Time Seen by Provider: 06/01/17 09:06 Mode of Arrival: Ambulatory Information source: Patient Notes: 31-year-old female presents to ED for paronychia to the right middle finger since Thursday. She states she had a hangnail that she pulled out and then it became infected. Is now swollen and has a pus filled pocket. TRAVEL OUTSIDE OF THE [place] IN LAST 30 DAYS: No - HPI Patient complains to provider of: Tender/swollen area Onset: Other - Thursday Onset/Duration: Gradual Quality of pain: Sharp, Throbbing Severity: Severe Pain Level: 5 Skin Character: Abscess - Paronychia Quality of rash: Painful Identify cause: Yes Exacerbated by: Other - Use of finger Relieved by: Denies Similar symptoms previously: No Recently seen / treated by doctor: No - Related Data Allergies/Adverse Reactions: No Known Allergies Allergy (Verified 06/01/17 08:49) Past Medical History - General Information source: Patient - Social History Smoking Status: Former Smoker Cigarette use (# per day): No Chew tobacco use (# tins/day): No Smoking Education Provided: No Frequency of alcohol use: None Drug Abuse: None 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 denies: Arthritis, COPD, CVA, Thyroid Disfunction Patient has suicidal ideation: No Patient has homicidal ideation: No - Past Medical History Cardiac Medical History: Reports: None Pulmonary Medical History: Reports: None EENT Medical History: Reports: None Neurological Medical History: Reports: Hx Seizures - first abnd last seizure is 2006 Endocrine Medical History: Reports: Hx Diabetes Mellitus Type 2 Renal/ Medical History: Reports: None Malignancy Medical History: Reports: None GI Medical History: Reports: None Musculoskeltal Medical History: Reports None Skin Medical History: Reports None Psychiatric Medical History: Reports: None Traumatic Medical History: Reports: None Infectious Medical History: Reports: None Past Surgical History: Reports: Hx Breast Surgery - Breast reduction, Hx Section - Immunizations Immunizations up to date: No Hx Diphtheria, Pertussis, Tetanus Vaccination: No Hx Pneumococcal Vaccination: 06/22/10 Review of Systems - Review of Systems Constitutional: No symptoms reported EENT: No symptoms reported Cardiovascular: No symptoms reported Respiratory: No symptoms reported Gastrointestinal: No symptoms reported Genitourinary: No symptoms reported Female Genitourinary: No symptoms reported Musculoskeletal: No symptoms reported Skin: Other - Paronychia to the right third finger Hematologic/Lymphatic: No symptoms reported Neurological/Psychological: No symptoms reported -: Yes All other systems reviewed and negative Physical Exam - Vital signs Vitals: Temp Pulse Resp BP Pulse Ox 98.7 F 93 18 130/81 H 99 06/01/17 08:59 06/01/17 08:59 06/01/17 08:59 06/01/17 08:59 06/01/17 08:59 Interpretation: Normal - General General appearance: Appears well, Alert - HEENT Head: Normocephalic, Atraumatic Eyes: Normal Pupils: PERRL - Respiratory Respiratory status: No respiratory distress Chest status: Nontender Breath sounds: Normal Chest palpation: Normal - Cardiovascular Rhythm: Regular Heart sounds: Normal auscultation Murmur: No - Abdominal Inspection: Normal Distension: No distension Bowel sounds: Normal Tenderness: Nontender Organomegaly: No organomegaly - Back Back: Normal, Nontender - Extremities General upper extremity: Normal inspection, Nontender, Normal color, Normal ROM , Normal temperature General lower extremity: Normal color, Normal ROM, Normal temperature, Normal weight bearing. No: Jessica's sign Hand: Tender - Paronychia to the right middle finger, No evidence of human bite , No evidence of FB, Swelling - Neurological Neuro grossly intact: Yes Cognition: Normal Orientation: AAOx4 [place] Coma Scale Eye Opening: Spontaneous [place] Coma Scale Verbal: Oriented [place] Coma Scale Motor: Obeys Commands [place] Coma Scale Total: 15 Speech: Normal Motor strength normal: LUE, RUE, LLE, RLE Sensory: Normal - Psychological Associated symptoms: Normal affect, Normal mood - Skin Skin Temperature: Warm Skin Moisture: Dry Skin Color: Normal Skin irregularity: Abscess - Paronychia to the right middle finger Course - Vital Signs Vital signs: Temp Pulse Resp BP Pulse Ox 98.7 F 93 18 130/81 H 99 06/01/17 08:59 06/01/17 08:59 06/01/17 08:59 06/01/17 08:59 06/01/17 08:59 Procedures - Incision and Drainage Right Finger 3rd digit Time completed: 09:45 Type: Simple Anesthetic type: 1% Lidocaine mL's of anesthetic: 2 Blade size: 11 I&D procedure: Other - Surgical scrub and saline Incision Method: Incision made by scalpel Amount/type of drainage: Moderate amount of purulent drainage from the paronychia to the right middl Discharge - Discharge Clinical Impression: Paronychia of right middle finger Condition: Stable Disposition: HOME, SELF-CARE Additional Instructions: Paronychia You have an infection between the nail and the surrounding skin, called a paronychia. The germs infect the area after a minor skin injury, such as a hangnail. This infection is treated by releasing the pus. This is usually done by the skin from the nail. If the infection has spread underneath the nail, partial removal of the nail may be necessary. Hot-soak the area three or four times daily. Antibiotics are often given, but are not always necessary. Healing takes about a week. If pain or swelling becomes severe or if you develop fever or chills, call the doctor or return for re-examination. ABSCESS: You have an abscess (boil). This a pus-forming infection, usually due to staph. Some boils may be left to drain on their own, but most require lancing. From the time the tender lump first appears, it may be three or four days before the abscess is ready to reji. Local heat and rest help at this stage of treatment. An antibiotic may prevent spread of the infection. Once the abscess is opened, packing may be placed into it. This is done so pus is not sealed inside by premature closure of the cavity. The packing will be removed at your follow-up visit or you may be advised to remove it yourself at home. Sometimes this packing must be replaced a few times during healing. The wound will heal with surprisingly little scar. Depending on the size and location of an abscess, healing can take one to four weeks. You may shower and wash the area around the incision site two or three times a day. Antibiotics may be prescribed, but are usually not necessary after an abscess has been drained. If you develop fever, chills, worsening pain, or increasing swelling in the area, call the doctor or return immediately. POST INCISION AND DRAINAGE: You have had an incision made to allow drainage of an abscess. The incision must remain open so that pus and debris can drain from the wound. If the abscess cavity is large, packing is placed. This keeps the tissues from collapsing and trapping pus inside, while the body shrinks the cavity. The packing may need to be replaced every day or two. The physician will instruct you on the packing. Keep a bulky dressing over the area. Replace it if it becomes saturated with blood or pus. Do not disturb the packing (if present). You may shower and cleanse the area with gentle soap and warm water two or three times a day. Local warmth may be soothing, and may promote faster healing. Return if you develop high fever or chills, or if you note spreading redness, increasing swelling, or increasing tenderness. Cephalexin The antibiotic you've been prescribed is a member of the cephalosporin class. This type of antibiotic covers a wide variety of infections, including those of the skin, lungs, and urinary tract. It's useful for staph infections. This antibiotic is slightly similar to the penicillin family. In rare cases , a person who is allergic to penicillin will also be allergic to this medication. If you have had a severe allergic reaction to penicillin, and have not taken this antibiotic since that time, notify your doctor. Antibiotics which cover many germs ("broad spectrum" antibiotics) are more likely to cause diarrhea or "yeast" infections. Women prone to vaginal yeast problems may suffer an attack after taking this antibiotic. In infants, oral thrush (white spots "stuck" on the cheek) or yeast diaper rash may result. See your doctor if these problems occur. Call at once if you develop itching, hives , shortness of breath, or lightheadedness. Epsom Salt Soaks Soak the wound area in a container of warm epsom salt water. If you can't get the wound area into a bucket or acevedo, use a folded towel soaked in the epsom salt solution and apply to the area. Use clean hot tap water (about the temperature of a very warm bath), mixing in about one (1) teaspoon for every pint of water. Two gallon --> 16 teaspoons Epsom Salts One gallon --> 8 teaspoons Epsom Salts Two quarts --> 4 teaspoons Epsom Salts One quart --> 2 teaspoons Epsom Salts Soak the wound for about 20 minutes while gently moving it around in the water. Repeat this four (4) times a day. Ibuprofen Ibuprofen is an excellent, safe drug for pain control. In addition, it has potent antiinflammatory effects which are beneficial, especially in the treatment of injuries, arthritis, or tendonitis. It's best to take ibuprofen with food. Persons with ulcer disease or allergy to aspirin should notify their physician of this before taking ibuprofen. Take the medication exactly as prescribed. Don't take additional doses unless instructed to do so by your doctor. If you develop wheezing, shortness of breath, hives, faintness, stomach pain, vomiting, or dark black stools, return for re-evaluation at once. FOLLOW-UP CARE: Most simple abscesses will not require a follow up visit. If you had packing placed in the abscess, remove it as instructed by the physician. If you have been referred to a physician for follow-up care, call the physicians office for an appointment as you were instructed or within the next two days. If you experience worsening or a significant change in your symptoms, return to the Emergency Department at any time for re-evaluation. Prescriptions: Cephalexin Monohydrate [Keflex 500 mg Capsule] 500 mg PO Q6H 5 Days capsule Forms: Elevated Blood Pressure, Return to Work Referrals: NOELLE HESTER MD [Primary Care Provider] - Follow up as needed
== END 2017-06-01 09:50 | disposition home or self-care (01) ==
LOC: ER 08:47
PROC: 0H9FXZZ Drainage of Right Hand Skin, External Approach (ICD-10-PCS; principal; 2017-06-01)
DX: L03.011 Cellulitis of right finger (principal); E11.9 Type 2 diabetes mellitus without complications
CPT/HCPCS: 99283; 10060; A9270; J3490

== ENCOUNTER 2017-09-20 09:03 | Emergency (ER) | payer MEDICARE, MEDICAID ==
[2017-09-20 09:25] VITALS: BP 108/65
[2017-09-20] MEDS ORDERED: GUAIFENESIN 600 MG TABLET.SA PO ONE (09:50)
[2017-09-20] MEDS ORDERED: DEXAMETHASONE 4 MG TABLET PO ONE (09:50)
[2017-09-20] MEDS ORDERED: PSEUDOEPHEDRINE HCL 30 MG TABLET PO ONE (09:50)
[2017-09-20] MEDS ORDERED: LORATADINE 10 MG TABLET PO ONE (09:50)
[2017-09-20] MEDS ORDERED: IBUPROFEN 800 MG TABLET PO ONE (09:50)
--- NOTE | 2017-09-20 09:56 | ER Document Report ---
ED ENT - General Chief Complaint: Ear Pain Stated Complaint: EAR PAIN Time Seen by Provider: 09/20/17 09:10 Mode of Arrival: Ambulatory Information source: Patient Notes: 31-year-old female presents to ED for complaint of sore throat nasal congestion chest congestion cough and runny nose and right ear pain off and on for week. She denies any fevers. She states she has been taken [id number] medications include TheraFlu has not taken any medication this morning. She is alert and oriented speaks in full sentences walks with a even steady gait pupils equal and react to light she is in no acute distress. TRAVEL OUTSIDE OF THE [place] IN LAST 30 DAYS: No - HPI Patient complains to provider of: Ear problem, Throat problem Onset: Last week Onset/Duration: Intermittent Quality of pain: Achy, Sharp Severity: Severe Pain Level: 5 Location of pain: Ears, Nose, Sinus, Throat Associated symptoms: Congestion, Cough, Runny nose, Sinus pain, Sinus drainage, Sore throat Similar symptoms previously: Yes Recently seen / treated by doctor: No - Related Data Allergies/Adverse Reactions: No Known Allergies Allergy (Verified 06/01/17 08:49) Past Medical History - General Information source: Patient - Social History Smoking Status: Former Smoker Cigarette use (# per day): No Chew tobacco use (# tins/day): No Smoking Education Provided: No Frequency of alcohol use: None Drug Abuse: None 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 denies: Arthritis, COPD, CVA, Thyroid Disfunction Patient has suicidal ideation: No Patient has homicidal ideation: No - Past Medical History Cardiac Medical History: Reports: None Pulmonary Medical History: Reports: None EENT Medical History: Reports: None Neurological Medical History: Reports: None, Hx Seizures - first abnd last seizure is 2006 Endocrine Medical History: Reports: Hx Diabetes Mellitus Type 2. Denies: Hx Hyperthyroidism, Hx Hypothyroidism Renal/ Medical History: Reports: None Malignancy Medical History: Reports: None GI Medical History: Reports: None Musculoskeltal Medical History: Reports None Skin Medical History: Reports None Psychiatric Medical History: Reports: None Traumatic Medical History: Reports: None Infectious Medical History: Reports: None Past Surgical History: Reports: Hx Breast Surgery - Breast reduction, Hx Section - Immunizations Immunizations up to date: No Hx Diphtheria, Pertussis, Tetanus Vaccination: No Hx Pneumococcal Vaccination: 06/22/10 Review of Systems - Review of Systems Constitutional: Recent illness EENT: Nose congestion, Nose discharge, Sinus pressure, Sinus discharge, Throat pain Cardiovascular: No symptoms reported Respiratory: Cough Gastrointestinal: No symptoms reported Genitourinary: No symptoms reported Female Genitourinary: No symptoms reported Musculoskeletal: No symptoms reported Skin: No symptoms reported Hematologic/Lymphatic: No symptoms reported Neurological/Psychological: No symptoms reported -: Yes All other systems reviewed and negative Physical Exam - Vital signs Vitals: Temp Pulse Resp BP Pulse Ox 98.4 F 86 16 108/65 99 09/20/17 09:21 09/20/17 09:21 09/20/17 09:21 09/20/17 09:21 09/20/17 09:21 Interpretation: Normal - General General appearance: Appears well, Alert - HEENT Head: Normocephalic, Atraumatic Eyes: Normal Pupils: PERRL Ears: Normal External canal: Normal Tympanic membrane: Normal Nasal: Normal Mouth/Lips: Normal Mucous membranes: Normal Pharynx: Post nasal drainage. No: Erythema, Exudate, Peritonsillar abscess, Retropharyngeal abscess, Tonsillar hypertrophy, Uvular edema, Potential airway comprom. Neck: Anterior cervical chain - Respiratory Respiratory status: No respiratory distress Chest status: Nontender Breath sounds: Nonproductive cough Chest palpation: Normal - Cardiovascular Rhythm: Regular Heart sounds: Normal auscultation Murmur: No - Abdominal Inspection: Normal Distension: No distension Bowel sounds: Normal Tenderness: Nontender Organomegaly: No organomegaly - Back Back: Normal, Nontender - Extremities General upper extremity: Normal inspection, Nontender, Normal color, Normal ROM , Normal temperature General lower extremity: Normal inspection, Nontender, Normal color, Normal ROM , Normal temperature, Normal weight bearing. No: Jessica's sign - Neurological Neuro grossly intact: Yes Cognition: Normal Orientation: AAOx4 [place] Coma Scale Eye Opening: Spontaneous [place] Coma Scale Verbal: Oriented [place] Coma Scale Motor: Obeys Commands [place] Coma Scale Total: 15 Speech: Normal Motor strength normal: LUE, RUE, LLE, RLE Sensory: Normal - Psychological Associated symptoms: Normal affect, Normal mood - Skin Skin Temperature: Warm Skin Moisture: Dry Skin Color: Normal Course - Vital Signs Vital signs: Temp Pulse Resp BP Pulse Ox 98.4 F 86 16 108/65 99 09/20/17 09:21 09/20/17 09:21 09/20/17 09:21 09/20/17 09:21 09/20/17 09:21 Discharge - Discharge Clinical Impression: Sore throat (viral), Otalgia of right ear URI (upper respiratory infection) Qualifiers: URI type: unspecified URI Qualified Code(s): J06.9 - Acute upper respiratory infection, unspecified Condition: Stable Disposition: HOME, SELF-CARE Additional Instructions: SORE THROAT: Sore throats may be caused by viruses, bacteria, or fungi. Most are due to a virus, and must get better on their own. Bacterial sore throats, particularly those due to "strep," need treatment with antibiotics. If an antibiotic is prescribed, be sure to take the medication for a full 10 days. Failure to take the antibiotic can result in complications such as rheumatic fever. Sometimes, an injection of antibiotics is given instead of pills or liquid. This single "shot" is equal in effectiveness to the oral medication. To relieve symptoms, take acetaminophen for pain. Sip clear liquids frequently, or eat popsicles or ice chips. Anesthetic sprays or lozenges may help. Make sure the air in the room is not too dry. Avoid using decongestants or antihistamines. Call the doctor if there is no improvement in two days, or if you have difficulty breathing, increasing throat pain, high fever, rash, or frequent vomiting. UPPER RESPIRATORY ILLNESS: You have a viral infection of the respiratory passages -- a "cold." This common infection causes nasal congestion, drainage, and often sore throat and cough. It is highly contagious. The disease usually lasts about 10 to 14 days. There is no "cure" for the viral infection -- it must run its course. If there is a complication, such as bacterial infection in the nose, sinuses, middle ear, or bronchial tubes, antibiotics may be required. The antibiotics won't affect the virus. Drink plenty of fluids. A humidifier may help. An expectorant medication or decongestant may make you more comfortable. Use acetaminophen or ibuprofen for fever or aches. See the doctor if fever persists over two days, if there is any significant worsening of your symptoms, or if you simply fail to improve as expected. DECONGESTANT MEDICATION: A decongestant medicine has been suggested. Often this medicine is combined in the same tablet with an antihistamine or expectorant. This type of medicine is helpful in treating a bad cold or sinus condition, as well as in treatment of the nasal congestion of hay fever. It is not of much benefit for lung infections. Decongestant medicines are related to stimulants. They can cause an increase in blood pressure and heart rate. Persons with heart disease and high blood pressure should not take decongestants without discussing this with the physician. If you develop palpitations, chest pain, headache, or tremors, stop the medicine and consult your physician. STEROID MEDICATION: You have been given an injection of or oral medicine of the cortisone/ steroid class. This medication is used to control inflammation or allergy. Stew t is usually only given for a short period of time, until the acute process subsides. There are usually no side effects from short-term use of cortisone-like medications. Some persons feel an increased sense of well-being and are not sleepy at bedtime. Long-term use of cortisone medications is best avoided, unless required for a severe condition. If your condition does not remit, or relapses after the course of corticosteroid medication, you should consult your physician. USE OF ACETAMINOPHEN (Tylenol): Acetaminophen may be taken for pain relief or fever control. It's much safer than aspirin, offering a wider range of "safe" dosages. It is safe during . Some brand names are Tylenol, Panadol, Datril, Anacin 3, Tempra, and Liquiprin. Acetaminophen can be repeated every four hours. The following are maximum recommended dosages: >89 pounds or adults 650 mg to 900 mg Acetaminophen can be repeated every four hours. Maximum dose not to exceed 4000 mg a day. SMOKING: If you smoke, you should stop smoking. The tar and chemicals in cigarette smoke are harmful. Smoking has been shown to cause: emphysema chronic bronchitis lung cancer mouth and throat cancer stomach and pancreas cancer premature aging defects In addition, smoking increases ear and lung infections in children of smokers. FOLLOW-UP CARE: If you have been referred to a physician for follow-up care, call the physician s office for an appointment as you were instructed or within the next two days. If you experience worsening or a significant change in your symptoms, notify the physician immediately or return to the Emergency Department at any time for re-evaluation. Referrals: KELLY KENNEYD PA [Primary Care Provider] - Follow up as needed
== END 2017-09-20 10:26 | disposition home or self-care (01) ==
LOC: ER 09:03
DX: J02.9 Acute pharyngitis, unspecified (principal); J06.9 Acute upper respiratory infection, unspecified; H92.01 Otalgia, right ear; Z87.891 Personal history of nicotine dependence
CPT/HCPCS: 99283; 87070; 87880; 87077; A9270 ×5

== ENCOUNTER → 2018-04-26 | Outpatient (CLI) | payer MEDICARE, MEDICAID ==
[2018-04-26 16:27] LABS: ABSOLUTE LYMPHOCYTES (AUTO) 1.2 10^3/uL (0.5-4.7); ABSOLUTE MONOCYTES (AUTO) 0.6 10^3/uL (0.1-1.4); ABSOLUTE NEUT (AUTO) 8.5 10^3/uL (1.7-8.2); BASOPHILS % (AUTO) 0.2 % (0-2); EOSINOPHILS % (AUTO) 0.3 % (0-6); HEMATOCRIT 39.1 % (36.0-47.0); HEMOGLOBIN 14.1 g/dL (12.0-15.5); LYMPHOCYTES % (AUTO) 11.3 % (13-45); MEAN CORPUSCULAR HEMOGLOBIN 34.6 pg (27.0-33.4); MEAN CORPUSCULAR HGB CONC 36.1 g/dL (32.0-36.0); MEAN CORPUSCULAR VOLUME 96 fl (80-97); MONOCYTES % (AUTO) 6.2 % (3-13); PLATELET COUNT 212 10^3/uL (150-450); RED BLOOD COUNT 4.08 10^6/uL (3.72-5.28); RED CELL DISTRIBUTION WIDTH 12.1 % (11.5-14.0); TOTAL CELLS COUNTED % (AUTO) 100 %; WHITE BLOOD COUNT 10.3 10^3/uL (4.0-10.5)
[2018-04-26 16:41] LABS: ALANINE AMINOTRANSFERASE 28 U/L (9-52); ALBUMIN 4.2 g/dL (3.5-5.0); ALKALINE PHOSPHATASE 117 U/L (38-126); ANION GAP 13 (5-19); ASPARTATE AMINO TRANSFERASE 18 U/L (14-36); BILIRUBIN,DIRECT 0.4 mg/dL (0.0-0.4); BILIRUBIN,TOTAL 1.5 mg/dL (0.2-1.3); BLOOD UREA NITROGEN 14 mg/dL (7-20); CALCIUM 9.5 mg/dL (8.4-10.2); CARBON DIOXIDE 28 mmol/L (22-30); CHLORIDE 96 mmol/L (98-107); GLUCOSE 397 mg/dL (75-110); LIPASE 52.6 U/L (23-300); POTASSIUM 4.1 mmol/L (3.6-5.0); SODIUM 137.3 mmol/L (137-145); TOTAL PROTEIN 7.8 g/dL (6.3-8.2)
== END ==
LOC: LAB 16:00
PROVIDERS: ATTEND Physician Assistant
DX: E11.9 Type 2 diabetes mellitus without complications (principal); R82.998 Other abnormal findings in urine
CPT/HCPCS: 36415; 80053; 83690; 85025; 87086; 87088; 87186

== ENCOUNTER 2019-06-24 09:29 | Emergency (ER) | payer MEDICARE, MEDICAID ==
[2019-06-24] MEDS ORDERED: ONDANSETRON HCL INJ/PF 4 MG/2 ML SDV IV ONE (10:31)
--- NOTE | 2019-06-24 10:33 | ER Document Report ---
ED Medical Screen (RME) - General Chief Complaint: Nausea/Vomiting Stated Complaint: VOMITING Time Seen by Provider: 06/24/19 10:28 Primary Care Provider: KELLY KENNEDY PA [Primary Care Provider] - Follow up as needed Notes: 33-year-old female with diabetes presents the emergency department for intractable nausea vomiting. Her Trulicity dose was stopped a couple of days ago when she started having the symptoms secondary to that. She saw her primary yesterday the medication adjustment was corrected but she is having persistent symptoms did not include abdominal pain and cramping. No fevers or chills, no urinary symptoms, no abnormal vaginal discharge. [place]son: In moderate distress, lungs clear to auscultation all joseph, tachycardia with regular him S1-S2 heard no murmurs. I have greeted and performed a rapid initial assessment of this patient. A comprehensive ED assessment and evaluation of the patient, analysis of test results and completion of medical decision making process will be conducted by an additional ED providers. TRAVEL OUTSIDE OF THE [place] IN LAST 30 DAYS: No - Related Data Allergies/Adverse Reactions: No Known Allergies Allergy (Verified 06/24/19 10:20) Home Medications: [facility] Past Medical History - Social History Chew tobacco use (# tins/day): No Frequency of alcohol use: None Drug Abuse: None Neurological Medical History: Reports: Hx Seizures - first abnd last seizure is 2006 Endocrine Medical History: Reports: Hx Diabetes Mellitus Type 2. Denies: Hx Hyperthyroidism, Hx Hypothyroidism Renal/ Medical History: Denies: Hx Peritoneal Dialysis Past Surgical History: Reports: Hx Breast Surgery - Breast reduction, Hx Section - Immunizations Immunizations up to date: No Hx Diphtheria, Pertussis, Tetanus Vaccination: No Physical Exam - Vital signs Vitals: Temp Pulse Resp BP Pulse Ox 97.5 F 107 H 18 125/79 96 06/24/19 09:40 06/24/19 09:40 06/24/19 09:40 06/24/19 09:40 06/24/19 09:40 Course - Vital Signs Vital signs: Temp Pulse Resp BP Pulse Ox 97.5 F 107 H 18 125/79 96 06/24/19 09:40 06/24/19 09:40 06/24/19 09:40 06/24/19 09:40 06/24/19 09:40 Doctor's Discharge - Discharge Referrals: KELLY KENNEDY PA [Primary Care Provider] - Follow up as needed
[2019-06-24] MEDS: NORMAL SALINE 1000 ML 1,000 ML IV PRN ×2 (11:20→12:21)
[2019-06-24 11:21] LABS: APPEARANCE,URINE CLOUDY; BILIRUBIN,URINE NEGATIVE (NEGATIVE); GLUCOSE, URINE >=500 mg/dL (NEGATIVE); KETONES,URINE 80 mg/dL (NEGATIVE); LEUKOCYTE ESTERASE,URINE MODERATE (NEGATIVE); NITRITE,URINE NEGATIVE (NEGATIVE); PROTEIN,URINE >=500 mg/dL (NEGATIVE); URINE SPECIFIC GRAVITY 1.031
[2019-06-24 11:22] LABS: COLOR,URINE DARK YELLOW
[2019-06-24 11:43] LABS: ABSOLUTE LYMPHOCYTES (AUTO) 1.6 10^3/uL (0.5-4.7); ABSOLUTE MONOCYTES (AUTO) 0.4 10^3/uL (0.1-1.4); ABSOLUTE NEUT (AUTO) 2.8 10^3/uL (1.7-8.2); BASOPHILS % (AUTO) 0.3 % (0-2); EOSINOPHILS % (AUTO) 0.4 % (0-6); HEMATOCRIT 43.1 % (36.0-47.0); HEMOGLOBIN 15.3 g/dL (12.0-15.5); LYMPHOCYTES % (AUTO) 33.5 % (13-45); MEAN CORPUSCULAR HEMOGLOBIN 34.3 pg (27.0-33.4); MEAN CORPUSCULAR HGB CONC 35.5 g/dL (32.0-36.0); MEAN CORPUSCULAR VOLUME 97 fl (80-97); MONOCYTES % (AUTO) 7.7 % (3-13); PLATELET COUNT 213 10^3/uL (150-450); RED BLOOD COUNT 4.45 10^6/uL (3.72-5.28); RED CELL DISTRIBUTION WIDTH 12.2 % (11.5-14.0); SEGMENTED NEUTROPHILS % (AUTO) 58.1 % (42-78); TOTAL CELLS COUNTED % (AUTO) 100 %; WHITE BLOOD COUNT 4.8 10^3/uL (4.0-10.5)
[2019-06-24 12:03] LABS: ALBUMIN 4.8 g/dL (3.5-5.0); ALKALINE PHOSPHATASE 91 U/L (38-126); ANION GAP 14 (5-19); ASPARTATE AMINO TRANSFERASE 23 U/L (14-36); BILIRUBIN,DIRECT 0.2 mg/dL (0.0-0.4); BILIRUBIN,TOTAL 2.1 mg/dL (0.2-1.3); BLOOD UREA NITROGEN 16 mg/dL (7-20); CALCIUM 9.9 mg/dL (8.4-10.2); CARBON DIOXIDE 23 mmol/L (22-30); CHLORIDE 100 mmol/L (98-107); GLUCOSE 294 mg/dL (75-110); POTASSIUM 4.2 mmol/L (3.6-5.0); TOTAL PROTEIN 8.3 g/dL (6.3-8.2)
[2019-06-24] MEDS ORDERED: PROMETHAZINE HCL INJ 25 MG/1 ML VIAL IM ONE (13:13)
[2019-06-24] MEDS ORDERED: FENTANYL CITRATE INJ/PF 100 MCG/2 ML AMPUL IV ONE (17:47)
[2019-06-24] MEDS ORDERED: CEFTRIAXONE 1 GM/D5W RTU 1 GM/50 ML RTUPB IV ONE (17:48)
--- NOTE | 2019-06-24 18:18 | RADIOLOGY REPORT (SQ) ---
EXAM DESCRIPTION: CT ABD/PELVIS NO ORAL OR IV COMPLETED DATE/TIME: 06/24/2019 5:55 pm REASON FOR STUDY: flank pain COMPARISON: None. TECHNIQUE: CT scan of the abdomen and pelvis performed without intravenous or oral contrast. Images reviewed with lung, soft tissue, and bone windows. Reconstructed coronal and sagittal MPR images revi ewed. All images stored on PACS. All CT scanners at this facility use dose modulation, iterative reconstruction, and/or weight based d osing when appropriate to reduce radiation dose to as low as reasonably achievable (ALARA). [facility]: Dose Right [facility]: CareDose [facility]: Dose Right [facility]: Teradose 4D [facility]: Smart Profitect RADIATION DOSE: CT Rad equipment meets quality standard of care and radiation dose reduction techniq ues were employed. CTDIvol: 5.4 mGy. DLP: 278 mGy-cm.mGy. LIMITATIONS: None. FINDINGS: LOWER CHEST: No significant findings. No nodules or infiltrates. NON-CONTRASTED LIVER, SPLEEN, ADRENALS: Evaluation limited by lack of IV contrast. No identified sign ificant masses. PANCREAS: No masses. No peripancreatic inflammatory changes. GALLBLADDER: No calcified stones. No inflammatory changes to suggest cholecystitis. RIGHT KIDNEY AND URETER: No cysts identified. No solid masses. No calcified stones. No hydronephrosis or hydroureter. LEFT KIDNEY AND URETER: No cysts identified. No solid masses. No calcified stones. No hydronephrosis or hydroureter. AORTA AND RETROPERITONEUM: No aneurysm. No retroperitoneal masses or adenopathy. BOWEL AND PERITONEAL CAVITY: No obvious masses or inflammatory changes. No free fluid. APPENDIX: Normal. PELVIS, BLADDER, AND ABDOMINAL WALL:No abnormal masses. No free fluid. Unremarkable bladder. BONES: No acute findings. OTHER: No other significant finding. IMPRESSION: NO ACUTE FINDINGS. TECHNICAL DOCUMENTATION: JOB ID: [id number] Quality ID # [id number]: Final reports with documentation of one or more dose reduction techniques (e.g., Au tomated exposure control, adjustment of the mA and/or kV according to patient size, use of iterative reconstruction technique) 2010 [employer]- All Rights Reserved Reading location - IP/workstation name: [email or web address]
[2019-06-24] MEDS ORDERED: PANTOPRAZOLE SODIUM 40 MG VIAL IV ONE (18:29)
[2019-06-24] MEDS ORDERED: PROMETHAZINE HCL INJ 25 MG/1 ML VIAL IV ONE (18:29)
[2019-06-24] MEDS ORDERED: HALOPERIDOL LACTATE INJ 5 MG/1 ML VIAL IV ONE (21:02)
--- NOTE | 2019-06-24 22:53 | ER Document Report ---
ED GI/ - General Chief Complaint: Nausea/Vomiting Stated Complaint: VOMITING Time Seen by Provider: 06/24/19 10:28 Primary Care Provider: KELLY KENNEDY PA [PHYSICIAN WOOL BUYER] - Follow up in 3-5 days Notes: Patient is a 33-year-old female who comes in complaining of upper abdominal pain nausea and vomiting. Patient apparently was diagnosed with urinary tract infection but has not been taking antibiotics for it. Complaining of dysuria but no back pain. Possible fever. No diarrhea. TRAVEL OUTSIDE OF THE [place] IN LAST 30 DAYS: No - HPI Timing/Duration: Sudden Quality of pain: Achy, Dull Severity at maximum: Moderate Severity in ED: Moderate - Related Data Allergies/Adverse Reactions: No Known Allergies Allergy (Verified 06/24/19 10:20) Home Medications: [facility] Past Medical History - Social History Smoking Status: Former Smoker Chew tobacco use (# tins/day): No Frequency of alcohol use: None Drug Abuse: None Family History: CAD, DM, Hyperlipidemia, Hypertension, Malignancy. denies: Arthritis, COPD, CVA, Thyroid Disfunction Patient has suicidal ideation: No Patient has homicidal ideation: No Neurological Medical History: Reports: Hx Seizures - first abnd last seizure is 2006 Endocrine Medical History: Reports: Hx Diabetes Mellitus Type 2. Denies: Hx Hyperthyroidism, Hx Hypothyroidism Renal/ Medical History: Denies: Hx Peritoneal Dialysis Past Surgical History: Reports: Hx Breast Surgery - Breast reduction, Hx Section - Immunizations Immunizations up to date: No Hx Diphtheria, Pertussis, Tetanus Vaccination: No Hx Pneumococcal Vaccination: 06/22/10 Review of Systems - Review of Systems -: Yes All other systems reviewed and negative Physical Exam - Vital signs Vitals: Temp Pulse Resp BP Pulse Ox 97.5 F 107 H 18 125/79 96 06/24/19 09:40 06/24/19 09:40 06/24/19 09:40 06/24/19 09:40 06/24/19 09:40 Interpretation: Normal - General General appearance: Appears well, Alert - HEENT Head: Normocephalic, Atraumatic Eyes: Normal Pupils: PERRL Mucous membranes: Dry - Respiratory Respiratory status: No respiratory distress Chest status: Nontender Breath sounds: Normal Chest palpation: Normal - Cardiovascular Rhythm: Regular, Tachycardia Heart sounds: Normal auscultation Murmur: No - Abdominal Inspection: Normal Distension: No distension Bowel sounds: Normal Tenderness: Tender - Bilateral upper quadrant tenderness to palpation. No: Guarding, Rebound Organomegaly: No organomegaly - Back Back: Normal, Nontender - Extremities General upper extremity: Normal inspection, Nontender, Normal color, Normal ROM, Normal temperature General lower extremity: Normal inspection, Nontender, Normal color, Normal ROM, Normal temperature, Normal weight bearing. No: Jessica's sign - Neurological Neuro grossly intact: Yes Cognition: Normal Orientation: AAOx4 [place] Coma Scale Eye Opening: Spontaneous [place] Coma Scale Verbal: Oriented [place] Coma Scale Motor: Obeys Commands [place] Coma Scale Total: 15 Speech: Normal Motor strength normal: LUE, RUE, LLE, RLE Sensory: Normal - Psychological Associated symptoms: Normal affect, Normal mood - Skin Skin Temperature: Warm Skin Moisture: Dry Skin Color: Normal Course - Re-evaluation Re-evalutation: 06/24/19 22:53 Patient states she is feeling better and is ready to go home. Patient is a 33-year-old female that came in for abdominal pain nausea vomiting. Received multiple doses of nausea medication and finally when given Haldol, had resolution of nausea and abdominal pain. She is now taking p.o. and requesting to be discharged home. No acute findings on CT. Blood work benign. Urine consistent with infection. Follow-up with PMD. Return if further concerns. Urine sent for culture. Will be prescribed cefdinir and has been given Rocephin in the emergency department. Understands and agrees with plan. Stable for discharge. - Vital Signs Vital signs: Temp Pulse Resp BP Pulse Ox 98.1 F 123 H 18 135/81 H 100 06/24/19 23:12 06/24/19 23:12 06/24/19 23:12 06/24/19 23:12 06/24/19 23:12 - Laboratory Result Diagrams: 06/24/19 11:30 06/24/19 11:30 Laboratory results interpreted by me: 06/24/19 06/24/19 06/24/19 10:42 11:30 11:30 [facility] 34.3 H Glucose 294 H POC Glucose Total Bilirubin 2.1 H Total Protein 8.3 H Urine Protein >=500 H Urine Glucose (UA) >=500 H Urine Ketones 80 H Urine Blood SMALL H Urine Urobilinogen 2.0 H Ur Leukocyte Esterase MODERATE H 06/24/19 17:21 [facility]CH Glucose POC Glucose 261 H Total Bilirubin Total Protein Urine Protein Urine Glucose (UA) Urine Ketones Urine Blood Urine Urobilinogen Ur Leukocyte Esterase - Diagnostic Test Radiology reviewed: Reports reviewed Discharge - Discharge Clinical Impression: Vomiting Qualifiers: Vomiting type: unspecified Vomiting Intractability: non-intractable Nausea presence: with nausea Qualified Code(s): R11.2 - Nausea with vomiting, uns pecified UTI (urinary tract infection) Qualifiers: Urinary tract infection type: site unspecified Hematuria presence: with hematuria Qualified Code(s): N39.0 - Urinary tract infection, site not spec ified; R31.9 - Hematuria, unspecified Condition: Stable Disposition: HOME, SELF-CARE Instructions: Urinary Tract Infection ([facility]), Vomiting ([facility]) Prescriptions: Ondansetron [Zofran Odt 4 mg Tablet] 1 tab PO Q6HP PRN #15 tab.rapdis PRN Reason: For Nausea/Vomiting Cefdinir 300 mg PO BID #14 capsule Metoclopramide HCl [Reglan 10 mg Tablet] 1 - 2 tab PO ASDIR PRN #25 tablet PRN Reason: Referrals: KELLY KENNEDY PA [PHYSICIAN WOOL BUYER] - Follow up in 3-5 days
[2019-06-24 23:13] VITALS: BP 135/81
== END 2019-06-24 23:15 | disposition home or self-care (01) ==
LOC: ER 09:29
DX: N39.0 Urinary tract infection, site not specified (principal); R31.9 Hematuria, unspecified; R11.2 Nausea with vomiting, unspecified; R10.10 Upper abdominal pain, unspecified; R30.0 Dysuria; Z87.891 Personal history of nicotine dependence; E11.9 Type 2 diabetes mellitus without complications
CPT/HCPCS: 99284; 96372; 96361; 96375; 96365; 36415; 82962; 83690; 85025; 81025; 80053; 81001; 74176; J3010; J1630; C9113; J2550; J2405; J7030; J0696